=== PATIENT | female | born 1940 | race Caucasian/White ===

== ENCOUNTER 2019-11-13 19:02 | Inpatient (IN) | payer OTHER ==
--- OUTSIDE RECORDS SUMMARY | 2019-11-13 19:05 | XMS REPORT ---
:1940 [facility] [address] [place] [address] Care Team Providers Name Role Phone ROSALIE LIN ARCHER Unavailable Unavailable Problems This patient has no known problems. Allergies, Adverse Reactions, Alerts This patient has no known allergies or adverse reactions. Medications This patient has no known medications. Results Test Description Test Time Test Comments Text Results Atomic Results Result Comments BLOOD CULTURE 2017-05-27 00:00:00 Test Item Value Reference Range Comments CULTURE (BEAKER) (test rcjr=3357) No growth in 5 days BLOOD [id number] 00:00:00 Test Item Value Reference Range Comments CULTURE (BEAKER) (test oalf=7097) No growth in 5 days BASIC METABOLIC [id number] 06:46:00 Test Item Value Reference Range Comments SODIUM (BEAKER) (test 143 meq/L 136-145 xems=850) POTASSIUM (BEAKER) (test 4.2 meq/L 3.5-5.1 wmdb=209) CHLORIDE (BEAKER) (test 107 meq/L 98-107 qbkt=734) CO2 (BEAKER) (test 28 meq/L 22-29 wmve=248) BLOOD UREA NITROGEN 20 mg/dL 7-21 (BEAKER) (test chwu=862) CREATININE (BEAKER) (test 0.81 mg/dL 0.57-1.25 twlh=888) GLUCOSE RANDOM (BEAKER) 98 mg/dL 70-105 (test kjzk=640) CALCIUM (BEAKER) (test 9.0 mg/dL 8.4-10.2 cbnp=401) EGFR (BEAKER) (test 69 mL/min/1.73 sq m ESTIMATED GFR IS NOT lozm=7331) ACCURATE CREATININE CLEARANCE IN PREDICTING GLOMERULAR FILTRATION RATE. ESTIMATED GFR IS NOT APPLICABLE FOR DIALYSIS PATIENTS. CBC W/PLT COUNT & AUTO [id number] 06:45:00 Test Item Value Reference Range Comments WHITE BLOOD CELL COUNT (BEAKER) (test szrc=897) 9.2 K/ L 3.5-10.5 RED BLOOD CELL COUNT (BEAKER) (test zngs=250) 2.82 M/ L 3.93-5.22 HEMOGLOBIN (BEAKER) (test eolo=984) 8.4 GM/DL 11.2-15.7 HEMATOCRIT (BEAKER) (test gamp=895) 27.8 % 34.1-44.9 MEAN CORPUSCULAR VOLUME (BEAKER) (test amjf=669) 98.6 fL 79.4-94.8 MEAN CORPUSCULAR HEMOGLOBIN (BEAKER) (test 29.8 pg 25.6-32.2 kjxd=264) MEAN CORPUSCULAR HEMOGLOBIN CONC (BEAKER) (test 30.2 GM/DL 32.2-35.5 bftj=619) RED CELL DISTRIBUTION WIDTH (BEAKER) (test 17.5 % 11.7-14.4 ehtv=545) PLATELET COUNT (BEAKER) (test khdw=124) 490 K/CU MM 150-450 MEAN PLATELET VOLUME (BEAKER) (test taga=281) 9.0 fL 9.4-12.3 NUCLEATED RED BLOOD CELLS (BEAKER) (test 0 /100 WBC 0-0 kmhn=011) NEUTROPHILS RELATIVE PERCENT (BEAKER) (test 46 % beeb=106) LYMPHOCYTES RELATIVE PERCENT (BEAKER) (test 40 % mbne=247) MONOCYTES RELATIVE PERCENT (BEAKER) (test 8 % hiue=947) EOSINOPHILS RELATIVE PERCENT (BEAKER) (test 4 % ywvn=090) BASOPHILS RELATIVE PERCENT (BEAKER) (test 1 % idfy=698) NEUTROPHILS ABSOLUTE COUNT (BEAKER) (test 4.26 K/ L 1.56-6.13 txuz=988) LYMPHOCYTES ABSOLUTE COUNT (BEAKER) (test 3.71 K/ L 1.18-3.74 lqfi=087) MONOCYTES ABSOLUTE COUNT (BEAKER) (test 0.77 K/ L 0.24-0.36 sjvm=501) EOSINOPHILS ABSOLUTE COUNT (BEAKER) (test 0.35 K/ L 0.04-0.36 zrrj=497) BASOPHILS ABSOLUTE COUNT (BEAKER) (test 0.07 K/ L 0.01-0.08 ewij=296) IMMATURE GRANULOCYTES-RELATIVE PERCENT (BEAKER) 1 % 0-1 (test siex=8727) BASIC METABOLIC [id number] 04:54:00 Test Item Value Reference Range Comments SODIUM (BEAKER) (test 140 meq/L 136-145 duqq=488) POTASSIUM (BEAKER) (test 4.4 meq/L 3.5-5.1 xfax=223) CHLORIDE (BEAKER) (test 107 meq/L 98-107 tkdf=429) CO2 (BEAKER) (test 23 meq/L 22-29 djio=749) BLOOD UREA NITROGEN 21 mg/dL 7-21 (BEAKER) (test xgzz=016) CREATININE (BEAKER) (test 0.80 mg/dL 0.57-1.25 vjcq=069) GLUCOSE RANDOM (BEAKER) 114 mg/dL 70-105 (test zlpi=759) CALCIUM (BEAKER) (test 8.7 mg/dL 8.4-10.2 scom=060) EGFR (BEAKER) (test 70 mL/min/1.73 sq m ESTIMATED GFR IS NOT vvtg=4143) ACCURATE CREATININE CLEARANCE IN PREDICTING GLOMERULAR FILTRATION RATE. ESTIMATED GFR IS NOT APPLICABLE FOR DIALYSIS PATIENTS. CBC W/PLT COUNT & AUTO [id number] 04:36:00 Test Item Value Reference Range Comments WHITE BLOOD CELL COUNT (BEAKER) (test nggs=025) 9.9 K/ L 3.5-10.5 RED BLOOD CELL COUNT (BEAKER) (test ooql=609) 2.80 M/ L 3.93-5.22 HEMOGLOBIN (BEAKER) (test igcu=944) 8.4 GM/DL 11.2-15.7 HEMATOCRIT (BEAKER) (test hfpo=641) 26.6 % 34.1-44.9 MEAN CORPUSCULAR VOLUME (BEAKER) (test uedf=555) 95.0 fL 79.4-94.8 MEAN CORPUSCULAR HEMOGLOBIN (BEAKER) (test 30.0 pg 25.6-32.2 mxgt=742) MEAN CORPUSCULAR HEMOGLOBIN CONC (BEAKER) (test 31.6 GM/DL 32.2-35.5 kgcn=608) RED CELL DISTRIBUTION WIDTH (BEAKER) (test 17.6 % 11.7-14.4 cipa=480) PLATELET COUNT (BEAKER) (test vtal=788) 460 K/CU MM 150-450 MEAN PLATELET VOLUME (BEAKER) (test ueih=690) 8.6 fL 9.4-12.3 NUCLEATED RED BLOOD CELLS (BEAKER) (test 0 /100 WBC 0-0 ryis=194) NEUTROPHILS RELATIVE PERCENT (BEAKER) (test 57 % jsqy=726) LYMPHOCYTES RELATIVE PERCENT (BEAKER) (test 33 % dthc=459) MONOCYTES RELATIVE PERCENT (BEAKER) (test 7 % vurg=167) EOSINOPHILS RELATIVE PERCENT (BEAKER) (test 2 % mocx=097) BASOPHILS RELATIVE PERCENT (BEAKER) (test 1 % hkbz=269) NEUTROPHILS ABSOLUTE COUNT (BEAKER) (test 5.67 K/ L 1.56-6.13 ccha=825) LYMPHOCYTES ABSOLUTE COUNT (BEAKER) (test 3.24 K/ L 1.18-3.74 ygow=335) MONOCYTES ABSOLUTE COUNT (BEAKER) (test 0.67 K/ L 0.24-0.36 befo=797) EOSINOPHILS ABSOLUTE COUNT (BEAKER) (test 0.21 K/ L 0.04-0.36 azns=517) BASOPHILS ABSOLUTE COUNT (BEAKER) (test 0.05 K/ L 0.01-0.08 qhzz=909) IMMATURE GRANULOCYTES-RELATIVE PERCENT (BEAKER) 1 % 0-1 (test wuce=4246) BASIC METABOLIC [id number] 05:29:00 Test Item Value Reference Range Comments SODIUM (BEAKER) (test 141 meq/L 136-145 cava=923) POTASSIUM (BEAKER) (test 4.2 meq/L 3.5-5.1 npgx=779) CHLORIDE (BEAKER) (test 109 meq/L 98-107 vtnj=372) CO2 (BEAKER) (test 22 meq/L 22-29 zlxy=301) BLOOD UREA NITROGEN 22 mg/dL 7-21 (BEAKER) (test snby=891) CREATININE (BEAKER) (test 0.82 mg/dL 0.57-1.25 gowg=330) GLUCOSE RANDOM (BEAKER) 105 mg/dL 70-105 (test seoh=562) CALCIUM (BEAKER) (test 8.5 mg/dL 8.4-10.2 oihe=322) EGFR (BEAKER) (test 68 mL/min/1.73 sq m ESTIMATED GFR IS NOT zycw=0380) ACCURATE CREATININE CLEARANCE IN PREDICTING GLOMERULAR FILTRATION RATE. ESTIMATED GFR IS NOT APPLICABLE FOR DIALYSIS PATIENTS. CBC W/PLT COUNT & AUTO [id number] 05:28:00 Test Item Value Reference Range Comments WHITE BLOOD CELL COUNT (BEAKER) (test wvzb=630) 12.2 K/ L 3.5-10.5 RED BLOOD CELL COUNT (BEAKER) (test vfsk=838) 2.67 M/ L 3.93-5.22 HEMOGLOBIN (BEAKER) (test liia=817) 8.1 GM/DL 11.2-15.7 HEMATOCRIT (BEAKER) (test xjbu=299) 25.4 % 34.1-44.9 MEAN CORPUSCULAR VOLUME (BEAKER) (test igbb=455) 95.1 fL 79.4-94.8 MEAN CORPUSCULAR HEMOGLOBIN (BEAKER) (test 30.3 pg 25.6-32.2 fzcx=058) MEAN CORPUSCULAR HEMOGLOBIN CONC (BEAKER) (test 31.9 GM/DL 32.2-35.5 czff=796) RED CELL DISTRIBUTION WIDTH (BEAKER) (test 18.4 % 11.7-14.4 nrwi=293) PLATELET COUNT (BEAKER) (test ngsy=633) 475 K/CU MM 150-450 MEAN PLATELET VOLUME (BEAKER) (test hgbb=811) 8.6 fL 9.4-12.3 NUCLEATED RED BLOOD CELLS (BEAKER) (test 0 /100 WBC 0-0 abgg=149) NEUTROPHILS RELATIVE PERCENT (BEAKER) (test 63 % wgje=609) LYMPHOCYTES RELATIVE PERCENT (BEAKER) (test 27 % gcgo=434) MONOCYTES RELATIVE PERCENT (BEAKER) (test 6 % oahy=737) EOSINOPHILS RELATIVE PERCENT (BEAKER) (test 2 % grbv=439) BASOPHILS RELATIVE PERCENT (BEAKER) (test 1 % jmxx=961) NEUTROPHILS ABSOLUTE COUNT (BEAKER) (test 7.67 K/ L 1.56-6.13 kiek=684) LYMPHOCYTES ABSOLUTE COUNT (BEAKER) (test 3.29 K/ L 1.18-3.74 nhfw=147) MONOCYTES ABSOLUTE COUNT (BEAKER) (test 0.75 K/ L 0.24-0.36 qwdl=531) EOSINOPHILS ABSOLUTE COUNT (BEAKER) (test 0.23 K/ L 0.04-0.36 wvkr=182) BASOPHILS ABSOLUTE COUNT (BEAKER) (test 0.06 K/ L 0.01-0.08 ypgg=302) IMMATURE GRANULOCYTES-RELATIVE PERCENT (BEAKER) 1 % 0-1 (test rxlw=4611) VITAMIN B12 AND [id number] 07:22:00 Test Item Value Reference Range Comments VITAMIN B12 (BEAKER) (test irkp=370) 448 pg/mL 213-816 FOLATE (BEAKER) (test mxev=344) 16.4 ng/mL >=7.0 Effective 08/19/2014: Folate Reference Range ChangeNew: >=7.0 Previous: & gt;=5.4CREATINE KINASE (CK), TOTAL AND [id number] 06:58:00 Test Item Value Reference Range Comments CREATINE KINASE TOTAL (BEAKER) (test bskc=676) 380 U/L 29-200 CREATINE KINASE-MB (BEAKER) (test gxak=002) 3.0 ng/mL 0.0-6.6 CREATINE KINASE-MB INDEX (BEAKER) (test riia=877) 0.8 % Effective 08/19/2014: CK-MB Reference Range ChangeNew: 0.0-6.6 Previous: 0.0- 4.9CK-MB Reference Range:<6.7 Normal6.7-10.0 Borderline>10.0 AbnormalBASIC METABOLIC [id number] 06:41:00 Test Item Value Reference Range Comments SODIUM (BEAKER) (test 140 meq/L 136-145 cqlo=287) POTASSIUM (BEAKER) (test 4.7 meq/L 3.5-5.1 Specimen slightly ihpv=995) hemolyzed CHLORIDE (BEAKER) (test 107 meq/L 98-107 uhty=026) CO2 (BEAKER) (test 24 meq/L 22-29 nzkm=605) BLOOD UREA NITROGEN 25 mg/dL 7-21 (BEAKER) (test eqzd=122) CREATININE (BEAKER) (test 0.86 mg/dL 0.57-1.25 Specimen slightly odkp=119) hemolyzed GLUCOSE RANDOM (BEAKER) 102 mg/dL 70-105 (test msnm=004) CALCIUM (BEAKER) (test 8.3 mg/dL 8.4-10.2 ncmi=685) EGFR (BEAKER) (test 64 mL/min/1.73 sq m ESTIMATED GFR IS NOT noks=4043) ACCURATE CREATININE CLEARANCE IN PREDICTING GLOMERULAR FILTRATION RATE. ESTIMATED GFR IS NOT APPLICABLE FOR DIALYSIS PATIENTS. CBC W/PLT COUNT & AUTO [id number] 06:27:00 Test Item Value Reference Range Comments WHITE BLOOD CELL COUNT (BEAKER) (test pnxl=298) 11.4 K/ L 3.5-10.5 RED BLOOD CELL COUNT (BEAKER) (test afdh=397) 2.43 M/ L 3.93-5.22 HEMOGLOBIN (BEAKER) (test jsnf=168) 7.4 GM/DL 11.2-15.7 HEMATOCRIT (BEAKER) (test nejr=671) 23.6 % 34.1-44.9 MEAN CORPUSCULAR VOLUME (BEAKER) (test mhzn=321) 97.1 fL 79.4-94.8 MEAN CORPUSCULAR HEMOGLOBIN (BEAKER) (test 30.5 pg 25.6-32.2 xxxq=758) MEAN CORPUSCULAR HEMOGLOBIN CONC (BEAKER) (test 31.4 GM/DL 32.2-35.5 neux=851) RED CELL DISTRIBUTION WIDTH (BEAKER) (test 19.0 % 11.7-14.4 fzew=027) PLATELET COUNT (BEAKER) (test fcfq=348) 491 K/CU MM 150-450 MEAN PLATELET VOLUME (BEAKER) (test tlqd=895) 9.0 fL 9.4-12.3 NUCLEATED RED BLOOD CELLS (BEAKER) (test 0 /100 WBC 0-0 urqp=418) NEUTROPHILS RELATIVE PERCENT (BEAKER) (test 62 % kkzs=883) LYMPHOCYTES RELATIVE PERCENT (BEAKER) (test 28 % vqdw=416) MONOCYTES RELATIVE PERCENT (BEAKER) (test 6 % zhio=874) EOSINOPHILS RELATIVE PERCENT (BEAKER) (test 2 % bmrz=210) BASOPHILS RELATIVE PERCENT (BEAKER) (test 0 % tvgw=772) NEUTROPHILS ABSOLUTE COUNT (BEAKER) (test 7.06 K/ L 1.56-6.13 atxz=889) LYMPHOCYTES ABSOLUTE COUNT (BEAKER) (test 3.19 K/ L 1.18-3.74 bcjp=985) MONOCYTES ABSOLUTE COUNT (BEAKER) (test 0.71 K/ L 0.24-0.36 zqgl=455) EOSINOPHILS ABSOLUTE COUNT (BEAKER) (test 0.20 K/ L 0.04-0.36 ppwe=525) BASOPHILS ABSOLUTE COUNT (BEAKER) (test 0.05 K/ L 0.01-0.08 wyng=048) IMMATURE GRANULOCYTES-RELATIVE PERCENT (BEAKER) 2 % 0-1 (test ffdk=6125) URINALYSIS W/ [id number] 17:10:00 Test Item Value Reference Range Comments COLOR (BEAKER) (test bmfp=073) Light Yellow CLARITY (BEAKER) (test wqdo=657) Clear SPECIFIC GRAVITY UA (BEAKER) (test jgbb=501) 1.005 1.001-1.035 PH UA (BEAKER) (test tyib=747) 5.5 5.0-8.0 PROTEIN UA (BEAKER) (test vyxp=656) Negative Negative GLUCOSE UA (BEAKER) (test ubsa=378) Negative Negative KETONES UA (BEAKER) (test nyrj=336) Negative Negative BILIRUBIN UA (BEAKER) (test uwwv=391) Negative Negative BLOOD UA (BEAKER) (test cbub=258) Negative Negative NITRITE UA (BEAKER) (test dbwh=107) Negative Negative LEUKOCYTE ESTERASE UA (BEAKER) (test lkon=795) Negative Negative UROBILINOGEN UA (BEAKER) (test ojyl=978) 0.2 mg/dL 0.2-1.0 RBC UA (BEAKER) (test bnsg=526) 0 /HPF WBC UA (BEAKER) (test cpwx=760) 2 /HPF SQUAMOUS EPITHELIAL (BEAKER) (test mbtd=522) < /HPF SOURCE(BEAKER) (test ihzg=4148) Urine, Voided CBC W/PLT COUNT & AUTO [id number] 07:33:00 Test Item Value Reference Range Comments WHITE BLOOD CELL COUNT (BEAKER) (test fzpg=127) 14.2 K/ L 3.5-10.5 RED BLOOD CELL COUNT (BEAKER) (test huhi=853) 2.52 M/ L 3.93-5.22 HEMOGLOBIN (BEAKER) (test xenu=311) 7.7 GM/DL 11.2-15.7 HEMATOCRIT (BEAKER) (test rmzx=086) 23.8 % 34.1-44.9 MEAN CORPUSCULAR VOLUME (BEAKER) (test mjqs=765) 94.4 fL 79.4-94.8 MEAN CORPUSCULAR HEMOGLOBIN (BEAKER) (test 30.6 pg 25.6-32.2 mrak=154) MEAN CORPUSCULAR HEMOGLOBIN CONC (BEAKER) (test 32.4 GM/DL 32.2-35.5 wljc=670) RED CELL DISTRIBUTION WIDTH (BEAKER) (test 19.9 % 11.7-14.4 pxvd=212) PLATELET COUNT (BEAKER) (test ddla=346) 506 K/CU MM 150-450 MEAN PLATELET VOLUME (BEAKER) (test bnkl=094) 8.7 fL 9.4-12.3 NUCLEATED RED BLOOD CELLS (BEAKER) (test 0 /100 WBC 0-0 thkt=490) NEUTROPHILS RELATIVE PERCENT (BEAKER) (test 62 % dfkh=372) LYMPHOCYTES RELATIVE PERCENT (BEAKER) (test 28 % grkg=538) MONOCYTES RELATIVE PERCENT (BEAKER) (test 6 % dgyy=700) EOSINOPHILS RELATIVE PERCENT (BEAKER) (test 1 % egys=408) BASOPHILS RELATIVE PERCENT (BEAKER) (test 1 % pvbv=640) NEUTROPHILS ABSOLUTE COUNT (BEAKER) (test 8.89 K/ L 1.56-6.13 bddk=911) LYMPHOCYTES ABSOLUTE COUNT (BEAKER) (test 3.99 K/ L 1.18-3.74 pvxo=836) MONOCYTES ABSOLUTE COUNT (BEAKER) (test 0.85 K/ L 0.24-0.36 ldij=428) EOSINOPHILS ABSOLUTE COUNT (BEAKER) (test 0.18 K/ L 0.04-0.36 gfmy=785) BASOPHILS ABSOLUTE COUNT (BEAKER) (test 0.07 K/ L 0.01-0.08 fmxj=527) IMMATURE GRANULOCYTES-RELATIVE PERCENT (BEAKER) 2 % 0-1 (test mvci=4521) LIPID [id number] 05:57:00 Test Item Value Reference Range Comments TRIGLYCERIDES (BEAKER) (test eytz=459) 181 mg/dL CHOLESTEROL (BEAKER) (test jfdy=812) 137 mg/dL HDL CHOLESTEROL (BEAKER) (test msqx=513) 37 mg/dL LDL CHOLESTEROL CALCULATED (BEAKER) (test 64 mg/dL pgoj=927) Triglyceride Reference Range: Low Risk <150 Borderline 150- 199 High Risk 200-499 Very High Risk >=500Cholesterol Reference Range: Low Risk <200 Borderline 200-239 High Risk > 240HDL Cholesterol Reference Range: Low Risk >=60 High Risk <40LDL Cholesterol Reference Range: Optimal <100 Near Optimal 100-129 Borderline 130-159 High 160-189 Very High >=190 FastingBASIC METABOLIC [id number] 05:57:00 Test Item Value Reference Range Comments SODIUM (BEAKER) (test 140 meq/L 136-145 vdux=618) POTASSIUM (BEAKER) (test 4.3 meq/L 3.5-5.1 zbsr=047) CHLORIDE (BEAKER) (test 109 meq/L 98-107 byoq=277) CO2 (BEAKER) (test 21 meq/L 22-29 fqog=622) BLOOD UREA NITROGEN 22 mg/dL 7-21 (BEAKER) (test xslu=847) CREATININE (BEAKER) (test 0.86 mg/dL 0.57-1.25 ysjq=016) GLUCOSE RANDOM (BEAKER) 109 mg/dL 70-105 (test neis=494) CALCIUM (BEAKER) (test 8.0 mg/dL 8.4-10.2 bgng=313) EGFR (BEAKER) (test 64 mL/min/1.73 sq m ESTIMATED GFR IS NOT nfit=8214) ACCURATE CREATININE CLEARANCE IN PREDICTING GLOMERULAR FILTRATION RATE. ESTIMATED GFR IS NOT APPLICABLE FOR DIALYSIS PATIENTS. FastingTROPONIN [id number] 05:52:00 Test Item Value Reference Range Comments TROPONIN I (BEAKER) (test ejsf=253) 0.04 ng/mL 0.00-0.03 Effective 08/19/2014: Reference Range ChangeNew: 0.00-0.03 Previous 0.00- 0.15Troponin I (TnI) levels must be interpreted in the context of the presenting symptoms and the clinical findings. Elevated TnI levels indicate myocardial damage, but are not specific for ischemic heart disease. Elevated TnI levels are seen in patients with other cardiac conditions (including myocarditis and congestive heartfailure), and slight TnI elevations occur in patients with other conditions, including sepsis, renalfailure, acidosis, acute neurological disease, and persistent tachyarrhythmia.FastingTROPONIN [id number] 00:23:00 Test Item Value Reference Range Comments TROPONIN I (BEAKER) (test oquv=637) 0.05 ng/mL 0.00-0.03 Effective 08/19/2014: Reference Range ChangeNew: 0.00-0.03 Previous 0.00- 0.15Troponin I (TnI) levels must be interpreted in the context of the presenting symptoms and the clinical findings. Elevated TnI levels indicate myocardial damage, but are not specific for ischemic heart disease. Elevated TnI levels are seen in patients with other cardiac conditions (including myocarditis and congestive heartfailure), and slight TnI elevations occur in patients with other conditions, including sepsis, renalfailure, acidosis, acute neurological disease, and persistent tachyarrhythmia.CBC W/PLT COUNT & AUTO [id number] 22:52:00 Test Item Value Reference Range Comments WHITE BLOOD CELL COUNT (BEAKER) (test zors=286) 16.7 K/ L 3.5-10.5 RED BLOOD CELL COUNT (BEAKER) (test jyck=786) 2.38 M/ L 3.93-5.22 HEMOGLOBIN (BEAKER) (test hces=867) 7.4 GM/DL 11.2-15.7 HEMATOCRIT (BEAKER) (test xfkw=454) 22.3 % 34.1-44.9 MEAN CORPUSCULAR VOLUME (BEAKER) (test iowo=639) 93.7 fL 79.4-94.8 MEAN CORPUSCULAR HEMOGLOBIN (BEAKER) (test 31.1 pg 25.6-32.2 zugy=292) MEAN CORPUSCULAR HEMOGLOBIN CONC (BEAKER) (test 33.2 GM/DL 32.2-35.5 jgxm=983) RED CELL DISTRIBUTION WIDTH (BEAKER) (test 20.1 % 11.7-14.4 ikdz=067) PLATELET COUNT (BEAKER) (test vmva=110) 497 K/CU MM 150-450 MEAN PLATELET VOLUME (BEAKER) (test kobq=602) 8.6 fL 9.4-12.3 NUCLEATED RED BLOOD CELLS (BEAKER) (test 1 /100 WBC 0-0 ydqb=038) IMMATURE GRANULOCYTES-RELATIVE PERCENT (BEAKER) 2 % 0-1 (test ezxy=8644) (MANUAL DIFFERENTIAL)[id number] 22:52:00 Test Item Value Reference Range Comments NEUTROPHILS - REL (DIFF) (BEAKER) (test 70 % qxbs=5886) LYMPHOCYTES - REL (DIFF) (BEAKER) (test 26 % jome=9146) MONOCYTES - REL (DIFF) (BEAKER) (test qlbk=6461) 2 % METAMYELOCYTES-REL (DIFF) (BEAKER) (test 1 % 0-0 erbp=728) BANDS - REL (DIFF) (BEAKER) (test cypr=0620) 1 % 0-10 NEUTROPHILS - ABS (DIFF) (BEAKER) (test 11.69 K/ L 1.80-8.00 aqcj=3438) LYMPHOCYTES - ABS (DIFF) (BEAKER) (test 4.34 K/ L 1.48-4.50 zssh=5409) MONOCYTES - ABS (DIFF) (BEAKER) (test xtam=1710) 0.33 K/ L 0.00-1.30 METAMYELOCTYES - ABS (DIFF) (BEAKER) (test 0.17 K/ L 0.00-0.00 kqhk=685) BANDS-ABS (DIFF) (BEAKER) (test foty=0921) 0.2 K/ L 0.0-0.8 TOTAL COUNTED (BEAKER) (test zoxr=0101) 100 BANDS + SEGMENTED NEUTROPHILS (BEAKER) (test 11.86 udcn=6078) MANUAL NRBC PER 100 CELLS (BEAKER) (test 2 /100 WBC 0-0 ktxr=2303) WBC MORPHOLOGY (BEAKER) (test qzns=600) Normal PLT MORPHOLOGY (BEAKER) (test fkir=075) Normal ANISOCYTOSIS (BEAKER) (test kgbs=313) 1+ few MACROCYTES (BEAKER) (test ujse=812) 1+ few POLYCHROMATOPHILLIC RBCS(BEAKER) (test jdhp=672) 2+ moderate [id number] 20:22:00 Test Item Value Reference Range Comments HAPTOGLOBIN (BEAKER) (test txkp=777) 376 mg/dL - Effective 08/19/2014: Reference Range ChangeNew: Previous: 36- [id number] 19:39:00 Test Item Value Reference Range Comments PARTIAL THROMBOPLASTIN TIME (BEAKER) (test 26.1 seconds 22.5-36.0 ewbh=058) COMPREHENSIVE METABOLIC [id number] 19:39:00 Test Item Value Reference Range Comments TOTAL PROTEIN (BEAKER) 6.1 gm/dL 6.0-8.3 (test ztzc=092) ALBUMIN (BEAKER) (test 3.0 g/dL 3.5-5.0 ehgp=3459) ALKALINE PHOSPHATASE 101 U/L 40-150 (BEAKER) (test zslb=053) BILIRUBIN TOTAL (BEAKER) < mg/dL 0.2-1.2 (test gsyf=384) SODIUM (BEAKER) (test 140 meq/L 136-145 ilgo=118) POTASSIUM (BEAKER) (test 4.1 meq/L 3.5-5.1 icvn=179) CHLORIDE (BEAKER) (test 107 meq/L 98-107 nfmz=767) CO2 (BEAKER) (test 23 meq/L 22-29 qicc=774) BLOOD UREA NITROGEN 25 mg/dL 7-21 (BEAKER) (test vvde=422) CREATININE (BEAKER) (test 0.99 mg/dL 0.57-1.25 afbn=267) GLUCOSE RANDOM (BEAKER) 86 mg/dL 70-105 (test hgoe=259) CALCIUM (BEAKER) (test 8.2 mg/dL 8.4-10.2 xgro=691) AST (SGOT) (BEAKER) (test 55 U/L 5-34 bdgi=449) ALT (SGPT) (BEAKER) (test 44 U/L 6-55 jaim=599) EGFR (BEAKER) (test 55 mL/min/1.73 sq m ESTIMATED GFR IS NOT smaq=0981) ACCURATE CREATININE CLEARANCE IN PREDICTING GLOMERULAR FILTRATION RATE. ESTIMATED GFR IS NOT APPLICABLE FOR DIALYSIS PATIENTS. PROTHROMBIN [id number] 19:38:00 Test Item Value Reference Range Comments PROTIME (BEAKER) (test xjun=090) 14.2 seconds 11.7-14.7 INR (BEAKER) (test tqeo=994) 1.1 <=5.9 RECOMMENDED COUMADIN/WARFARIN INR THERAPY RANGESSTANDARD DOSE: 2.0 - 3.0 Includes: PROPHYLAXIS forvenous thrombosis, systemic embolization; TREATMENT for venous thrombosis and/or pulmonary embolus.HIGH RISK: Target INR is 2.5-3.5 for patients with mechanical heart valves.CREATINE KINASE (CK), TOTAL AND [id number] 18:25:00 Test Item Value Reference Range Comments CREATINE KINASE TOTAL (BEAKER) (test qogg=298) 1250 U/L 29-200 CREATINE KINASE-MB (BEAKER) (test wtci=494) 17.1 ng/mL 0.0-6.6 CREATINE KINASE-MB INDEX (BEAKER) (test culs=493) 1.4 % Effective 08/19/2014: CK-MB Reference Range ChangeNew: 0.0-6.6 Previous: 0.0- 4.9CK-MB Reference Range:<6.7 Normal6.7-10.0 Borderline>10.0 AbnormalTROPONIN [id number] 18:25:00 Test Item Value Reference Range Comments TROPONIN I (BEAKER) (test irrh=518) 0.05 ng/mL 0.00-0.03 Effective 08/19/2014: Reference Range ChangeNew: 0.00-0.03 Previous 0.00- 0.15Troponin I (TnI) levels must be interpreted in the context of the presenting symptoms and the clinical findings. Elevated TnI levels indicate myocardial damage, but are not specific for ischemic heart disease. Elevated TnI levels are seen in patients with other cardiac conditions (including myocarditis and congestive heartfailure), and slight TnI elevations occur in patients with other conditions, including sepsis, renalfailure, acidosis, acute neurological disease, and persistent tachyarrhythmia.LACTATE DEHYDROGENASE (LDH) 2017-05-20 18:19:00 Test Item Value Reference Range Comments LACTATE DEHYDROGENASE (BEAKER) (test nteb=330) 454 U/L 125-220 HEMOGLOBIN AND [id number] 18:04:00 Test Item Value Reference Range Comments HEMOGLOBIN (BEAKER) (test wdlh=181) 8.0 GM/DL 11.2-15.7 HEMATOCRIT (BEAKER) (test vpce=851) 24.4 % 34.1-44.9 SEDIMENTATION [id number] 13:43:00 Test Item Value Reference Range Comments SEDIMENTATION RATE, ERYTHROCYTE (BEAKER) (test 63 mm/HR 0-40 dotj=337) [id number] 12:08:00 Test Item Value Reference Range Comments RPR SCREEN (BEAKER) (test dpjq=544) Nonreactive Nonreactive POCT-GLUCOSE [id number] 11:27:00 Test Item Value Reference Range Comments POC-GLUCOSE METER (BEAKER) 178 mg/dL 70-110 TESTED AT [facility] [address] (test msrs=5945) [facility] [address] HEMOGLOBIN [id number] 09:58:00 Test Item Value Reference Range Comments HEMOGLOBIN A1C (BEAKER) (test wvox=880) 5.8 % 4.3-6.1 CBC W/PLT COUNT & AUTO [id number] 09:27:00 Test Item Value Reference Range Comments WHITE BLOOD CELL COUNT (BEAKER) (test pryr=914) 18.9 K/ L 3.5-10.5 RED BLOOD CELL COUNT (BEAKER) (test qwqf=141) 2.40 M/ L 3.93-5.22 HEMOGLOBIN (BEAKER) (test zyrq=959) 7.4 GM/DL 11.2-15.7 HEMATOCRIT (BEAKER) (test kexk=801) 22.9 % 34.1-44.9 MEAN CORPUSCULAR VOLUME (BEAKER) (test qdne=438) 95.4 fL 79.4-94.8 MEAN CORPUSCULAR HEMOGLOBIN (BEAKER) (test 30.8 pg 25.6-32.2 iftq=476) MEAN CORPUSCULAR HEMOGLOBIN CONC (BEAKER) (test 32.3 GM/DL 32.2-35.5 thks=247) RED CELL DISTRIBUTION WIDTH (BEAKER) (test 18.8 % 11.7-14.4 oalp=998) PLATELET COUNT (BEAKER) (test tzsi=128) 497 K/CU MM 150-450 MEAN PLATELET VOLUME (BEAKER) (test khtc=160) 8.8 fL 9.4-12.3 NUCLEATED RED BLOOD CELLS (BEAKER) (test 1 /100 WBC 0-0 aovr=493) NEUTROPHILS RELATIVE PERCENT (BEAKER) (test 65 % ushy=775) LYMPHOCYTES RELATIVE PERCENT (BEAKER) (test 26 % zdfh=926) MONOCYTES RELATIVE PERCENT (BEAKER) (test 6 % zwvp=728) EOSINOPHILS RELATIVE PERCENT (BEAKER) (test 0 % pyrs=519) BASOPHILS RELATIVE PERCENT (BEAKER) (test 0 % vgzb=148) NEUTROPHILS ABSOLUTE COUNT (BEAKER) (test 12.40 K/ L 1.56-6.13 tptu=623) LYMPHOCYTES ABSOLUTE COUNT (BEAKER) (test 4.88 K/ L 1.18-3.74 rqqy=616) MONOCYTES ABSOLUTE COUNT (BEAKER) (test 1.13 K/ L 0.24-0.36 luye=519) EOSINOPHILS ABSOLUTE COUNT (BEAKER) (test 0.04 K/ L 0.04-0.36 gcar=680) BASOPHILS ABSOLUTE COUNT (BEAKER) (test 0.05 K/ L 0.01-0.08 ixfz=094) IMMATURE GRANULOCYTES-RELATIVE PERCENT (BEAKER) 2 % 0-1 (test qyyq=4975) (MANUAL DIFFERENTIAL)2017-05-20 09:27:00 Test Item Value Reference Range Comments TOTAL COUNTED (BEAKER) (test syhj=1757) WBC MORPHOLOGY (BEAKER) (test jnws=181) Normal PLT MORPHOLOGY (BEAKER) (test pezu=143) Normal ANISOCYTOSIS (BEAKER) (test isjn=668) 2+ moderate POLYCHROMATOPHILLIC RBCS(BEAKER) (test njrf=989) 1+ few POCT-GLUCOSE [id number] 07:27:00 Test Item Value Reference Range Comments POC-GLUCOSE METER (BEAKER) 120 mg/dL 70-110 TESTED AT [facility] [address] [facility] (test mxpw=4028) [facility] [address] [id number] 07:02:00 Test Item Value Reference Range Comments FERRITIN (BEAKER) (test jshj=618) 370 ng/mL 5-275 Effective 08/19/2014: Reference Range ChangeNew: Male 5-275 Previous: Male 22-322 Female 5-275 Female 10-291TSH/FREE T4 IF [id number] 07:02:00 Test Item Value Reference Range Comments THYROID STIMULATING HORMONE (BEAKER) (test 1.71 uIU/mL 0.35-4.94 yepw=543) IRON, TIBC, % SAT. (WITHOUT FERRITIN)2017-05-20 07:00:00 Test Item Value Reference Range Comments IRON (BEAKER) (test odts=421) 100 ug/dL 40-160 TOTAL IRON BINDING CAPACITY (BEAKER) (test 265 ug/dL 250-450 ixve=325) IRON % SATURATION (2) (BEAKER) (test jxdo=6712) 38 % 20-55 CREATINE KINASE (CK), TOTAL AND [id number] 06:42:00 Test Item Value Reference Range Comments CREATINE KINASE TOTAL (BEAKER) (test gqam=811) 1329 U/L 29-200 CREATINE KINASE-MB (BEAKER) (test zvug=995) 16.7 ng/mL 0.0-6.6 CREATINE KINASE-MB INDEX (BEAKER) (test iver=331) 1.3 % Effective 08/19/2014: CK-MB Reference Range ChangeNew: 0.0-6.6 Previous: 0.0- 4.9CK-MB Reference Range:<6.7 Normal6.7-10.0 Borderline>10.0 AbnormalTROPONIN [id number] 06:42:00 Test Item Value Reference Range Comments TROPONIN I (BEAKER) (test xzot=720) 0.06 ng/mL 0.00-0.03 Effective 08/19/2014: Reference Range ChangeNew: 0.00-0.03 Previous 0.00- 0.15Troponin I (TnI) levels must be interpreted in the context of the presenting symptoms and the clinical findings. Elevated TnI levels indicate myocardial damage, but are not specific for ischemic heart disease. Elevated TnI levels are seen in patients with other cardiac conditions (including myocarditis and congestive heartfailure), and slight TnI elevations occur in patients with other conditions, including sepsis, renalfailure, acidosis, acute neurological disease, and persistent tachyarrhythmia.[id number] 06:35: 00 Test Item Value Reference Range Comments PHOSPHORUS (BEAKER) (test txoy=973) 3.5 mg/dL 2.3-4.7 [id number] 06:35:00 Test Item Value Reference Range Comments MAGNESIUM (BEAKER) (test tmqk=724) 2.3 mg/dL 1.6-2.6 LIPID [id number] 06:35:00 Test Item Value Reference Range Comments TRIGLYCERIDES (BEAKER) (test yqqv=903) 145 mg/dL CHOLESTEROL (BEAKER) (test wown=973) 132 mg/dL HDL CHOLESTEROL (BEAKER) (test mjaq=894) 33 mg/dL LDL CHOLESTEROL CALCULATED (BEAKER) (test 70 mg/dL ndjm=320) Triglyceride Reference Range: Low Risk <150 Borderline 150- 199 High Risk 200-499 Very High Risk >=500Cholesterol Reference Range: Low Risk <200 Borderline 200-239 High Risk > 240HDL Cholesterol Reference Range: Low Risk >=60 High Risk <40LDL Cholesterol Reference Range: Optimal <100 Near Optimal 100-129 Borderline 130-159 High 160-189 Very High >=190HEPATIC FUNCTION [id number] 06:35:00 Test Item Value Reference Range Comments TOTAL PROTEIN (BEAKER) (test vwvy=336) 5.4 gm/dL 6.0-8.3 ALBUMIN (BEAKER) (test bkuk=6693) 2.7 g/dL 3.5-5.0 BILIRUBIN TOTAL (BEAKER) (test xpxt=950) 0.4 mg/dL 0.2-1.2 BILIRUBIN DIRECT (BEAKER) (test svwu=320) 0.2 mg/dL 0.1-0.5 ALKALINE PHOSPHATASE (BEAKER) (test yihj=554) 81 U/L 40-150 AST (SGOT) (BEAKER) (test pjnu=588) 56 U/L 5-34 ALT (SGPT) (BEAKER) (test urue=669) 41 U/L 6-55 BASIC METABOLIC [id number] 06:34:00 Test Item Value Reference Range Comments SODIUM (BEAKER) (test 140 meq/L 136-145 mgfs=713) POTASSIUM (BEAKER) (test 4.1 meq/L 3.5-5.1 yjpr=994) CHLORIDE (BEAKER) (test 107 meq/L 98-107 imnx=055) CO2 (BEAKER) (test 21 meq/L 22-29 vyft=170) BLOOD UREA NITROGEN 34 mg/dL 7-21 (BEAKER) (test gwna=713) CREATININE (BEAKER) (test 1.22 mg/dL 0.57-1.25 umyc=605) GLUCOSE RANDOM (BEAKER) 95 mg/dL 70-105 (test vysk=180) CALCIUM (BEAKER) (test 8.4 mg/dL 8.4-10.2 doav=171) EGFR (BEAKER) (test 43 mL/min/1.73 sq m ESTIMATED GFR IS NOT nkaa=1064) ACCURATE CREATININE CLEARANCE IN PREDICTING GLOMERULAR FILTRATION RATE. ESTIMATED GFR IS NOT APPLICABLE FOR DIALYSIS PATIENTS.
[2019-11-13 20:08] LABS: Absolute Lymphocytes (CBC) 2.3 K/uL (0.7-4.9); Basophils % 0.1 % (0-1.3); Hematocrit 37.1 % (36.0-45.0); Lymphocytes % 19.3 % (15.3-44.8); MPV 7.2 fL (7.6-11.3); RBC Red Blood Cell Count 4.05 M/uL (3.86-4.86)
[2019-11-13 20:09] LABS: Protime INR 1.13
[2019-11-13 20:26] LABS: Urine Blood 3+ (NEG); Urine Glucose NEGATIVE (NEG); Urine Protein 2+ (NEG)
--- NOTE | 2019-11-13 20:40 | RAD REPORT ---
EXAM DESCRIPTION: RAD - Chest Single View - 11/13/2019 8:35 pm CLINICAL HISTORY: AMS Chest pain. COMPARISON: Chest Single View dated 05/19/2017 FINDINGS: Portable technique limits examination quality. The lungs are grossly clear. The heart is normal in size. No displaced fractures.Mild dextroscoliosis of the upper thoracic spine. IMPRESSION: No acute intrathoracic process suspected.
--- NOTE | 2019-11-13 20:40 | RAD REPORT ---
EXAM DESCRIPTION: RAD - Pelvis - 11/13/2019 8:35 pm CLINICAL HISTORY: fall Pelvic pain COMPARISON: No comparisons FINDINGS: Minimally displaced fractures of the superior and inferior pubic ramus on the left is note d. Elsewhere, no fracture or dislocation evident.
--- NOTE | 2019-11-13 20:42 | RAD REPORT ---
EXAM DESCRIPTION: RAD - Knee Left 3 View - 11/13/2019 8:35 pm CLINICAL HISTORY: PAIN Fall, pain COMPARISON: No comparisons FINDINGS: Diffuse osteopenia is seen. Prominent osteoarthritis involves the medial compartment with sclerosis and osteophytosis. No joint effusion. No acute fracture or dislocation.
[2019-11-13 20:45] LABS: ALT/SGPT 21 U/L (12-78); AST/SGOT 26 U/L (15-37); Albumin 3.9 g/dL (3.4-5.0); Alkaline Phosphatase 138 U/L (45-117); BUN Blood Urea Nitrogen 29 mg/dL (7-18); Bicarbonate 25 mmol/L (21-32); Bilirubin Direct < 0.1 mg/dL (0-0.2); Bilirubin Total 0.3 mg/dL (0.2-1.0); Glucose Level 147 mg/dL (74-106); NT PRO-BNP 606 pg/mL (<450); Potassium 3.5 mmol/L (3.5-5.1); Protein, Total 7.9 g/dL (6.4-8.2); Sodium Level 145 mmol/L (136-145); Troponin (Emerg Dept Use Only) < 0.02 ng/mL (0.0-0.045)
--- NOTE | 2019-11-13 20:48 | RAD REPORT ---
EXAM DESCRIPTION: CT - Head Brain Wo Cont - 11/13/2019 8:38 pm CLINICAL HISTORY: MENTAL STATUS CHANGE Headache, drowsiness COMPARISON: Head C Spine Mpr Wo Con dated 05/19/2017 TECHNIQUE: All CT scans are performed using dose optimization technique as appropriate and may inclu de automated exposure control or mA/KV adjustment according to patient size. FINDINGS: No intracranial hemorrhage, hydrocephalus or extra-axial fluid collection.Small areas of g liosis is seen in the right frontal lobe likely related to previous trauma or infarct.Generalized bra in atrophy is noted mild to moderate chronic microvascular ischemic changes present. The paranasal sinuses and mastoids are clear. The calvarium is intact. IMPRESSION: No acute intracranial abnormality.
[2019-11-13] MEDS ORDERED: NA CHLORIDE 0.9% 500 ML ONE (20:50)
[2019-11-13 21:04] LABS: Urine Bacteria 20-50 /HPF (<20); Urine RBC 20-50 /HPF (NONE SEEN)
[2019-11-13 21:06] LABS: Urine Culture Reflex Order REFLEXED
[2019-11-13] MEDS ORDERED: CEFTRIAXONE/SWI 1gm 1 GM/10 ML SYR ONE (21:58)
[2019-11-13] MEDS ORDERED: NA CHLORIDE 0.9% 1,000 ML ONE (23:26)
--- NOTE | 2019-11-13 23:48 | ER ---
Nurse's Notes [facility] Name: Dominik Washington Age: 79 yrs Sex: Female : 1940 Arrival Date: 11/13/2019 Time: 19:04 Bed 13 Private MD: Diagnosis: Multiple fractures of pelvis with stable disruption of pelvic ring;Altered mental status, unspecified;Urinary tract infection, site not specified Presentation: 11/13 19:06 Presenting complaint: Patient states: thinks there are people in her house but her son iw and grandson don't believe her, has been calling the police trying to get the people out of her house. Transition of care: patient was not received from another setting of care. Onset of symptoms was November 13, 2019. 19:06 Method Of Arrival: Wheelchair iw 19:06 Acuity: HERNÁN 3 iw 19:31 Risk Assessment: Do you want to hurt yourself or someone else? Patient reports no iw desire to harm self or others. Initial Sepsis Screen: Does the patient meet any 2 criteria? No. Patient's initial sepsis screen is negative. Does the patient have a suspected source of infection? No. Patient's initial sepsis screen is negative. Care prior to arrival: None. 19:31 Risk Assessment: Do you want to hurt yourself or someone else? Patient reports no ls4 desire to harm self or others. Initial Sepsis Screen: Does the patient meet any 2 criteria? Altered Mental Status. HR > 90 bpm. Yes Does the patient have a suspected source of infection? No. Patient's initial sepsis screen is negative. Care prior to arrival: None. Triage Assessment: 20:21 General: Appears in no apparent distress. uncomfortable, Behavior is cooperative. Pain: ls4 Denies pain. Neuro: Level of Consciousness is awake, alert, obeys commands, Oriented to person, place, time, Documentation Clerk are equal bilaterally Moves all extremities. Gait is unsteady, Speech is normal, Facial symmetry appears normal, Pupils are PERRLA, Intact Reports SEEING STRANGERS IN HER HOUSE. SHE STATES THE POLICE REMOVED THEM AND ONE OF THEM MUST HAVE STAYED BEHIND AND LET THEM BACK IN THE BACK DOOR. . Cardiovascular: Reports None Denies chest pain, shortness of breath, Heart tones S1 S2. Respiratory: Airway is patent Respiratory effort is even, unlabored, Respiratory pattern is regular, Breath sounds are clear bilaterally. GI: Abdomen is non-distended, Bowel sounds present X 4 quads. Abd is soft and non tender X 4 quads. Reports normal bowel habits, Patient currently denies abdominal pain, constipation, nausea, vomiting. : Urine is clear, Parent/caregiver report the patient having incontinence. Derm: Skin is dry, Skin is pink, warm \T\ dry. Bruising that is dark purple, LEFT HIP . Musculoskeletal:. Historical: - Allergies: 19:09 No Known Allergies; iw - Home Meds: 19:12 supposed to be on xarelto [Active]; Aspirin Oral [Active]; iw - PMHx: 19:09 Hypertension; iw 19:12 CVA; iw - PSHx: 19:12 Knee surgery; iw - Immunization history:: Adult Immunizations not up to date. - Coronavirus screen:: The patient has NOT traveled to [place] in the past 14 days. Proceed with normal triage process as indicated. - Social history:: Smoking status: Patient denies any tobacco usage or history of. - Ebola Screening: : Patient negative for fever greater than or equal to 101.5 degrees Fahrenheit, and additional compatible Ebola Virus Disease symptoms Patient denies exposure to infectious person Patient denies travel to an Ebola-affected area in the 21 days before illness onset No symptoms or risks identified at this time. Screenin:31 Abuse screen: Denies threats or abuse. Denies injuries from another. Nutritional ls4 screening: No deficits noted. Tuberculosis screening: No symptoms or risk factors identified. Fall Risk None identified. Assessment: 20:27 Reassessment: Patient appears in no apparent distress at this time. No changes from ls4 previously documented assessment. Patient and/or family updated on plan of care and expected duration. Pain level reassessed. Patient is alert, oriented x 3, equal unlabored respirations, skin warm/dry/pink. General: SEE TRIAGE ASSESSMENT . 21:00 Reassessment: Patient appears in no apparent distress at this time. No changes from ls4 previously documented assessment. Patient and/or family updated on plan of care and expected duration. Pain level reassessed. Patient is alert, oriented x 3, equal unlabored respirations, skin warm/dry/pink. 22:04 Reassessment: WHEN I ASKED PT WHEN SHE FELL, PT STATED THAT SHE FALLS ALL THE TIME. ls4 23:45 Reassessment: Patient appears in no apparent distress at this time. No changes from ls4 previously documented assessment. Patient and/or family updated on plan of care and expected duration. Pain level reassessed. Patient is alert, oriented x 3, equal unlabored respirations, skin warm/dry/pink. 11/14 01:00 Reassessment: Patient appears in no apparent distress at this time. No changes from wh previously documented assessment. Patient and/or family updated on plan of care and expected duration. Pain level reassessed. Patient is alert, oriented x 3, equal unlabored respirations, skin warm/dry/pink. Psych: 11/13 20:27 Subjective: Patient's mood is DEFENSIVE. PT STATES THAT EVERYONE THINKS SHE IS CRAZY ls4 Delusions are persecutory, Hallucinations are visual. Objective: Patient is cooperative, defensive, Speech is normal, Affect is appropriate. Interventions: Patient placed in hospital gown. Urine collected and sent for urine drug test. Suicide Risk Assessment: Sad Person Scale: Sex of patient: Female: Score 0 points. Age of patient: Score 1 point if patient is over 65. Depression: Score 0 point if signs of depression are not present. Previous Attempt: Score 0 point if patient has not previously attempted suicide. Substance Abuse: Score 0 point if patient does not abuse alcohol or drugs. Rational Thinking: Score 0 point if patient has rational thinking. Social Support: Score 0 if social support is present/available. Organized Plan: Score 0 if patient did not have an organized plan in place. Relationship: Score 1 point if patient is , , , or for a single male Chronic Sickness: Score 0 point if patient does not have a chronic illness, debilitating, or severe disorder. TOTAL POINTS: If total points are 0-2, proposed clinical action is to send home with follow-up. Safety Checks: Visitors are present. Pt denies substance abuse. Commitment: NONE. Vital Signs: 19:10 BP 129 / 89; Pulse 105; Resp 16 S; Temp 98.7; Pulse Ox 98% on R/A; Weight 49.9 kg; iw Height 5 ft. 1 in. (154.94 cm); 20:00 BP 140 / 91; Pulse 94; Resp 14; Pulse Ox 97% on R/A; ls4 21:00 BP 163 / 75; Pulse 87; Resp 14; Temp 98.2; Pulse Ox 97% on R/A; Pain 0/10; ls4 22:05 BP 174 / 96; Pulse 78; Resp 14; Temp 98.0(O); Pulse Ox 98% on R/A; Pain 0/10; ls4 23:00 BP 162 / 71; Pulse 102; Resp 14; Temp 98.2(O); Pulse Ox 97% on R/A; Pain 0/10; ls4 23:44 BP 160 / 70; Pulse 99; Resp 14; Pulse Ox 98% on R/A; Pain 0/10; ls4 11/14 01:00 BP 167 / 81; Pulse 98; Resp 16; Pulse Ox 96% on R/A; wh 11/13 19:10 Body Mass Index 20.78 (49.90 kg, 154.94 cm) iw ED Course: 11/13 19:04 Patient arrived in ED. as 19:08 Triage completed. iw 19:10 Arm band placed on. iw 19:13 Barb Judge, ABBY is Primary Nurse. ls4 19:31 Lucas Shine PA is PHCP. cp 19:31 Thang Kwong MD is Attending Physician. cp 19:31 Patient has correct armband on for positive identification. Placed in gown. Bed in low ls4 position. Call light in reach. Side rails up X 1. case monitor on. Pulse ox on. NIBP on. 19:31 No provider procedures requiring assistance completed. ls4 20:20 Urine Microscopic Only Sent. ls4 20:20 Troponin (emerg Dept Use Only) Sent. ls4 20:20 PT-INR Sent. ls4 20:21 Urine obtained. Labs ordered per protocol. Drawn by ED staff. ls4 20:21 NT PRO-BNP Sent. ls4 20:21 Magnesium Sent. ls4 20:21 LFT's Sent. ls4 20:21 Basic Metabolic Panel Sent. ls4 20:21 CBC with Diff Sent. ls4 20:21 XRAY Chest (1 view) Sent. ls4 20:44 XRAY Pelvis Sent. ls4 22:03 Urine Dipstick--Ancillary (enter results) Sent. ls4 23:44 Ron Mcdowell MD is Hospitalizing Provider. 11/14 01:36 Patient admitted, IV remains in place. Administered Medications: 11/13 20:50 Drug: NS 0.9% 500 ml Route: IV; Rate: 500 ml/hr; Site: left antecubital; 4 11/14 01:36 Follow up: Response: No adverse reaction; IV Status: Completed infusion 11/13 22:02 Drug: Rocephin 1 grams Route: IV; Rate: calculated rate; Site: left antecubital; 4 11/14 01:36 Follow up: Response: No adverse reaction; IV Status: Completed infusion 11/13 22:02 Drug: NS 0.9% 1000 ml Route: IV; Rate: 75 ml/hr; Site: left antecubital; 4 11/14 01:36 Follow up: Response: No adverse reaction; IV Status: Completed infusion 11/13 23:58 Not Given (Physician Discretion): Ativan 0.5 mg IVP once 11/14 00:05 Drug: Demerol - Meperidine 12.5 mg Route: IVP; Site: left antecubital; ls4 00:35 Follow up: Response: No adverse reaction; Marked relief of symptoms; Pain is decreased ls4 Outcome: 11/13 23:46 Decision to Hospitalize by Provider. 11/14 01:35 Admitted to Tele accompanied by tech, family with patient, via stretcher, room 402, with chart, Report called to Laurence MORA Condition: stable Instructed on the need for admit. 02:00 Patient left the ED. Signatures: Bharati Riggins Irene, RN RN iw Page, Corey, PA PA Ben Head Barb Judge RN RN ls4 Corrections: (The following items were deleted from the chart) 11/13 22:12 22:09 Condition: stable ls4 ls4
--- NOTE | 2019-11-13 23:48 | EDPHYS ---
Physician Documentation [facility] Name: Dominik Washington Age: 79 yrs Sex: Female : 1940 Arrival Date: 11/13/2019 Time: 19:04 Bed 13 Private MD: ED Physician Thang Kwong HPI: 11/13 19:45 This 79 yrs old Female presents to ER via Wheelchair with complaints of cp Altered Mental Status. 19:45 The patient presents to the emergency department with psychosis, has experienced visual cp hallucinations, son reports patient called law enforcement multiple times today complaining that strangers were in her home. Onset: The symptoms/episode began/occurred at an unknown time. The patient presents with confusion. Possible causes: unknown. Associated signs and symptoms: Pertinent positives: weakness, left leg and knee pain, Pertinent negatives: abdominal pain, chest pain. Patient's baseline: Neuro: alert and fully oriented, Motor: no deficits, Ambulation: walks with assist only, uses walker, Speech: normal. Historical: - Allergies: 19:09 No Known Allergies; iw - Home Meds: 19:12 supposed to be on xarelto [Active]; Aspirin Oral [Active]; iw - PMHx: 19:09 Hypertension; iw 19:12 CVA; iw - PSHx: 19:12 Knee surgery; iw - Immunization history:: Adult Immunizations not up to date. - Coronavirus screen:: The patient has NOT traveled to [place] in the past 14 days. Proceed with normal triage process as indicated. - Social history:: Smoking status: Patient denies any tobacco usage or history of. - Ebola Screening: : Patient negative for fever greater than or equal to 101.5 degrees Fahrenheit, and additional compatible Ebola Virus Disease symptoms Patient denies exposure to infectious person Patient denies travel to an Ebola-affected area in the 21 days before illness onset No symptoms or risks identified at this time. ROS: 19:50 Constitutional: Negative for fever, poor PO intake. cp 19:50 Eyes: Negative for injury, pain, redness, and discharge. cp 19:50 ENT: Negative for drainage from ear(s), ear pain, sore throat, difficulty swallowing, difficulty handling secretions. 19:50 Cardiovascular: Negative for chest pain, edema, palpitations. 19:50 Respiratory: Negative for cough, shortness of breath, wheezing. 19:50 Abdomen/GI: Negative for abdominal pain, vomiting, diarrhea, constipation, black/tarry stool, rectal bleeding. 19:50 Back: Negative for pain at rest, pain with movement. 19:50 Skin: Negative for rash. 19:50 Neuro: Positive for altered mental status, weakness. 19:50 Psych: Positive for visual hallucinations. 19:50 All other systems are negative. Exam: 19:55 Constitutional: The patient appears in no acute distress, alert, awake, cp non-diaphoretic, non-toxic, well developed, well nourished. 19:55 Head/Face: Normocephalic, atraumatic. cp 19:55 Eyes: Periorbital structures: appear normal, Pupils: equal, round, and reactive to light and accomodation, Extraocular movements: intact throughout, Conjunctiva: normal, no exudate, no injection, Sclera: no appreciated abnormality, Lids and lashes: appear normal, bilaterally. 19:55 ENT: External ear(s): are unremarkable, Ear canal(s): are normal, clear, TM's: bulging, is not appreciated, bilaterally, dullness, bilaterally, erythema, is not appreciated, bilaterally, Nose: is normal, Mouth: Lips: moist, Oral mucosa: pink and intact, moist, Posterior pharynx: is normal, airway is patent, no erythema, no exudate. 19:55 Neck: C-spine: vertebral tenderness, is not appreciated, crepitus, is not appreciated, ROM/movement: is normal, is supple, without pain, no range of motions limitations, no nuchal rigidity. 19:55 Chest/axilla: Inspection: normal, Palpation: is normal, no crepitus, no tenderness. 19:55 Cardiovascular: Rate: tachycardic, Rhythm: regular, Edema: is not appreciated, JVD: is not appreciated. 19:55 Respiratory: the patient does not display signs of respiratory distress, Respirations: normal, no use of accessory muscles, no retractions, labored breathing, is not present, Breath sounds: are clear throughout, no decreased breath sounds, no stridor, no wheezing. 19:55 Abdomen/GI: Inspection: abdomen appears normal, Bowel sounds: active, all quadrants, Palpation: abdomen is soft and non-tender, in all quadrants. 19:55 Back: pain, is absent, ROM is normal. 19:55 Musculoskeletal/extremity: Extremities: grossly normal except: noted in the left hip: pain, tenderness, ROM: limited passive range of motion due to pain, in the left hip, Perfusion: the extremity is normally perfused throughout, Sensation intact. Joints: the left knee displays painful range of motion, tenderness. 19:55 Skin: cellulitis, is not appreciated, no rash present. 19:55 Neuro: Orientation: to person, place, situation, Mentation: lucid, able to follow commands, Motor: moves all fours, strength is normal. 19:55 Psych: Behavior/mood is uncooperative, Affect is animated. 21:00 ECG was reviewed by the Attending Physician. cp Vital Signs: 19:10 BP 129 / 89; Pulse 105; Resp 16 S; Temp 98.7; Pulse Ox 98% on R/A; Weight 49.9 kg; iw Height 5 ft. 1 in. (154.94 cm); 20:00 BP 140 / 91; Pulse 94; Resp 14; Pulse Ox 97% on R/A; ls4 21:00 BP 163 / 75; Pulse 87; Resp 14; Temp 98.2; Pulse Ox 97% on R/A; Pain 0/10; ls4 22:05 BP 174 / 96; Pulse 78; Resp 14; Temp 98.0(O); Pulse Ox 98% on R/A; Pain 0/10; ls4 23:00 BP 162 / 71; Pulse 102; Resp 14; Temp 98.2(O); Pulse Ox 97% on R/A; Pain 0/10; ls4 23:44 BP 160 / 70; Pulse 99; Resp 14; Pulse Ox 98% on R/A; Pain 0/10; ls4 11/14 01:00 BP 167 / 81; Pulse 98; Resp 16; Pulse Ox 96% on R/A; wh 11/13 19:10 Body Mass Index 20.78 (49.90 kg, 154.94 cm) iw MDM: 11/13 19:39 Patient medically screened. cp 20:00 Differential diagnosis: acute psychotic break, psychosis secondary to non-compliance, cp UTI, sepsis, head injury. 23:45 Data reviewed: vital signs, nurses notes, lab test result(s), EKG, radiologic studies, cp CT scan, plain films, I have discussed the patient's presentation/case with the attending Emergency Department Physician;. 23:45 Test interpretation: by ED physician or midlevel provider: ECG. 23:45 Physician consultation: Ron Mcdowell MD was called at 23:40, was contacted at 23:40, cp regarding admission, to the medical/surgical unit. patient's condition, would like consultation with Dr. Velazco. 11/13 19:47 Order name: Basic Metabolic Panel 11/13 19:47 Order name: CBC with Diff 11/13 19:47 Order name: LFT's 11/13 19:47 Order name: Magnesium cp 11/13 19:47 Order name: NT PRO-BNP 11/13 19:47 Order name: PT-INR 11/13 19:47 Order name: Troponin (emerg Dept Use Only) 11/13 19:47 Order name: Urine Microscopic Only 11/13 20:09 Order name: CBC with Automated Diff; Complete Time: 20:10 EDMS 11/13 20:10 Interpretation: Normal except: WBC 11.8; MPV 7.2; JOHN% 74.3; NEUT A 8.7. 11/13 20:10 Order name: Protime (+INR); Complete Time: 20:10 EDMS 11/13 20:20 Order name: Urine Dipstick--Ancillary (enter results) md 11/13 20:27 Order name: Urine Dipstick-Ancillary; Complete Time: 20:34 EDMS 11/13 20:35 Interpretation: Normal except: UBLD 3+; UPROT 2+; UESTR 1+. 11/13 20:46 Order name: Basic Metabolic Panel; Complete Time: 21:12 EDMS 11/13 21:12 Interpretation: Normal except: CL 111; GLUC 147; BUN 29; GFR 41. 11/13 20:46 Order name: Liver (Hepatic) Function; Complete Time: 21:12 EDMS 02 21:12 Interpretation: Normal except: ALK 138; GLOB 4.0; A/G 1.0. 11/13 19:47 Order name: XRAY Chest (1 view) cp 11/13 19:47 Order name: XRAY Pelvis 11/13 19:59 Order name: XRAY Knee LEFT 3 view 11/13 19:59 Order name: CT Head Brain wo Cont cp 11/13 20:46 Order name: Troponin (Emerg Dept Use Only); Complete Time: 21:12 EDMS 11/13 20:46 Order name: NT PRO-BNP; Complete Time: 21:12 EDMS 11/13 20:46 Order name: Magnesium; Complete Time: 21:12 EDMS 11/13 20:54 Order name: RAD; Complete Time: 21:12 EDMS 11/13 20:54 Order name: RAD; Complete Time: 21:12 EDMS 11/13 20:54 Order name: RAD; Complete Time: 21:12 EDMS 11/13 21:03 Order name: CT; Complete Time: 21:12 EDMS 11/13 21:07 Order name: Urine Microscopic Only; Complete Time: 21:12 EDMS 11/13 21:12 Interpretation: Abnormal. 11/13 22:01 Order name: CT Abd/Pelvis - Without Contrast cp 11/13 19:37 Order name: EKG - Nurse/Tech; Complete Time: 20:55 [facility] 11/13 19:37 Order name: EKG; Complete Time: 19:38 [facility] 11/13 19:37 Order name: Urine Dipstick-Ancillary (obtain specimen); Complete Time: 20:20 [facility] 11/13 19:47 Order name: Cardiac monitoring; Complete Time: 20:20 11/13 19:47 Order name: IV Saline Lock; Complete Time: 20:20 11/13 19:47 Order name: Labs collected and sent; Complete Time: 20:20 11/13 19:47 Order name: O2 Per Protocol; Complete Time: 20:20 11/13 19:47 Order name: O2 Sat Monitoring; Complete Time: 20:21 11/13 19:47 Order name: Cath; Complete Time: 20:20 11/13 21:12 Order name: Vital Signs: recheck to include temp; Complete Time: 21:37 cp EC:00 Rate is 93 beats/min. Rhythm is regular. DC interval is normal. QRS interval is normal. cp QT interval is normal. Interpreted by me. Reviewed by me. Administered Medications: 20:50 Drug: NS 0.9% 500 ml Route: IV; Rate: 500 ml/hr; Site: left antecubital; [facility] 11/14 01:36 Follow up: Response: No adverse reaction; IV Status: Completed infusion 11/13 22:02 Drug: Rocephin 1 grams Route: IV; Rate: calculated rate; Site: left antecubital; ls4 11/14 01:36 Follow up: Response: No adverse reaction; IV Status: Completed infusion 11/13 22:02 Drug: NS 0.9% 1000 ml Route: IV; Rate: 75 ml/hr; Site: left antecubital; ls4 02 01:36 Follow up: Response: No adverse reaction; IV Status: Completed infusion 11/13 23:58 Not Given (Physician Discretion): Ativan 0.5 mg IVP once 11/14 00:05 Drug: Demerol - Meperidine 12.5 mg Route: IVP; Site: left antecubital; ls4 00:35 Follow up: Response: No adverse reaction; Marked relief of symptoms; Pain is decreased ls4 Disposition: 03:13 Co-signature as Attending Physician, Thang Kwong MD. rn Disposition: 11/13/19 23:46 Hospitalization ordered by Ron Mcdowell for Inpatient Admission. Preliminary diagnosis are Multiple fractures of pelvis with stable disruption of pelvic ring, Altered mental status, unspecified, Urinary tract infection, site not specified. - Bed requested for Telemetry/MedSurg (Inpatient). - Status is Inpatient Admission. - Condition is Stable. - Problem is new. - Symptoms have improved. Signatures: Dispatcher [employer] EDMS Prachi Zepeda RN RN dw Williams, Irene, RN RN iw Nieto, Roman, MD MD rn Page, Corey, PA PA cp Habalo, Winsy Barb Judge RN RN ls4 Corrections: (The following items were deleted from the chart) 00:41 11/13 19:40 This 79 yrs old Female presents to ER via Wheelchair with cp complaints of Altered Mental Status. 11/14 01:13 02 23:46 Hospitalization Ordered by Ron Mcdowell MD for Inpatient Admission. dw Preliminary diagnosis is Multiple fractures of pelvis with stable disruption of pelvic ring; Altered mental status, unspecified; Urinary tract infection, site not specified. Bed requested for Telemetry/MedSurg (Inpatient). Status is Inpatient Admission. Condition is Stable. Problem is new. Symptoms have improved. 02/13 02:00 01:13 11/13/2019 23:46 Hospitalization Ordered by Ron Mcdowell MD for Inpatient Admission. Preliminary diagnosis is Multiple fractures of pelvis with stable disruption of pelvic ring; Altered mental status, unspecified; Urinary tract infection, site not specified. Bed requested for Telemetry/MedSurg (Inpatient). Status is Inpatient Admission. Condition is Stable. Problem is new. Symptoms have improved. dw
[2019-11-14] MEDS ORDERED: MEPERIDINE HCL 25 MG/0.5 ML ONE (00:02)
[2019-11-14] MEDS ORDERED: ONDANSETRON 4 MG/2 ML VIAL IV PRN (01:01)
[2019-11-14] MEDS ORDERED: MORPHINE 2 MG/ML SYR IV PRN (01:01)
[2019-11-14] MEDS ORDERED: WATER FOR INJ,STERILE 10 ML IM PRN (01:21)
[2019-11-14] MEDS ORDERED: ZIPRASIDONE MESYLA 20 MG/VIAL IM PRN (01:21)
[2019-11-14] MEDS ORDERED: NA CHLORIDE 0.9% 1,000 ML IV SCH (02:00)
[2019-11-14 02:58] VITALS: BMI 23.5
[2019-11-14 04:17] LABS: Absolute Lymphocytes (CBC) 2.6 K/uL (0.7-4.9); Basophils % 0.5 % (0-1.3); Hematocrit 31.9 % (36.0-45.0); Lymphocytes % 29.6 % (15.3-44.8); MPV 7.5 fL (7.6-11.3)
[2019-11-14 04:18] LABS: Protime INR 1.11
[2019-11-14 04:31] LABS: Bilirubin Total 0.3 mg/dL (0.2-1.0); Potassium 3.6 mmol/L (3.5-5.1); Protein, Total 6.7 g/dL (6.4-8.2)
--- NOTE | 2019-11-14 06:42 | P.HP ---
Certification for Inpatient Patient admitted to: Inpatient With expected LOS: >2 Midnights Patient will require the following post-hospital care: None Practitioner: I am a practitioner with admitting privileges, knowledge of patient current condition, hospital course, and medical plan of care. Services: Services provided to patient in accordance with Admission requirements found in Title 42 Section 412.3 of the Code of Federal Regulations Patient History Date of Service: 11/14/19 Reason for admission: s/p fall with minimally displaced fractures of the superior & inferior pu History of Present Illness: Patient is a 79-year-old female came to the hospital after being found confused. Patient was apparently at home and calling out to the neighbors for help. Her family brought her into the ER for further evaluation. In the ER it was noted she has some bruising to her hip. X-rays were performed which showed she has suffered an inferior and superior ramus fracture. She was also found having urinary tract infection. She will be admitted to the hospital for further workup. Will get an MRI of the brain to rule out a CVA. She is confused and she is not answering many of my questions appropriately. She will be admitted for further workup. Allergies No Known Allergies Allergy (Unverified 05/20/17 01:56) Home Medications: Aspirin [Aspirin EC 81 MG] 81 mg PO DAILY 05/25/17 - Past Medical/Surgical History Has patient received pneumonia vaccine in the past: No Diabetic: No -: HTN -: CVA -: R knee replacement 2001 -: hip surgery - Family History Father History Unknown: Yes Mother History Unknown: Yes Medical History: Other (see notes) Notes: arthritis - Social History Smoking Status: Never smoker Alcohol use: Yes CD- Drugs: No Caffeine use: Yes Place of Residence: Home Review of Systems is unable to be obtained Physical Examination - Vital Signs Temperature: 98.0 F Blood Pressure: 150/78 Pulse: 96 Respirations: 16 Pulse Ox (%): 96 - Physical Exam General: Alert, In no apparent distress, Confused, Delirious HEENT: Atraumatic, PERRLA, Mucous membr. moist/pink, EOMI, Sclerae nonicteric Neck: Supple, 2+ carotid pulse no bruit, No LAD, Without JVD or thyroid abnormality Respiratory: Clear to auscultation bilaterally, Normal air movement Cardiovascular: Regular rate/rhythm, Normal S1 S2 Gastrointestinal: Normal bowel sounds, No tenderness Musculoskeletal: No tenderness Integumentary: No rashes Neurological: Normal gait, Normal speech, Normal strength at 5/5 x4 extr, Normal tone, Normal affect Lymphatics: No axilla or inguinal lymphadenopathy - Studies Laboratory Data (last 24 hrs) 11/13/19 19:53: PT 13.3 H, INR 1.13 11/13/19 19:53: WBC 11.8 H, Hgb 12.2, Hct 37.1, Plt Count 293 11/13/19 19:53: Sodium 145, Potassium 3.5, BUN 29 H, Creatinine 1.26, Glucose 147 H, Magnesium 2.0, Total Bilirubin 0.3, AST 26, ALT 21, Alkaline Phosphatase 138 H Assessment & Plan - Problems (Diagnosis) (1) Altered mental status Current Visit: Yes Status: Acute (2) UTI (urinary tract infection) Current Visit: Yes Status: Acute (3) Fracture of multiple pubic rami Current Visit: Yes Status: Acute - Plan -IV hydration -IV antibiotics -cultures are pending -check renal function and electrolytes -MRI of the brain -check thyroid studies and cortisol studies -bed check in place -physical therapy evaluation once mentation is improved -discuss POC with family Discharge Plan: Home Plan to discharge in: Greater than 2 days - Advance Directives Does patient have a Living Will: No Does patient have a Durable POA for Healthcare: No
[2019-11-14 07:42] LABS: Thyroid Stimulating Hormone 0.716 uIU/mL (0.360-3.740)
--- NOTE | 2019-11-14 09:46 | RAD REPORT ---
EXAM DESCRIPTION: - CP - 11/14/2019 9:25 am CLINICAL HISTORY: AMS Headache, drowsiness, CVA symptomology COMPARISON: Head C Spine Mpr Wo Con dated 05/19/2017 TECHNIQUE: Real-time sonographic evaluation of both carotid systems was performed. Doppler interroga tion was performed with waveform tracing bilaterally. FINDINGS: Normal high resistance waveforms are noted in both external carotid arteries. The common c arotid arteries and internal carotid arteries show normal low resistance waveforms. Mild to moderate hard plaquing is seen in both carotid bulbs, mildly worse on the left. Peak systolic and end diastolic velocity values and the ICA/CCA ratios are in the non-hemodynamically significant range. Antegrade flow seen in both vertebral arteries. IMPRESSION: Mild to moderate hard plaquing is seen in both carotid bulbs, mildly worse on the left. No evidence of a hemodynamically significant stenosis.
[2019-11-14] MEDS: NACHLORIDE 0.45% 1,000 ML IV SCH ×2 (10:02→22:06)
[2019-11-14] MEDS: CEFTRIAXONE/SWI 1gm 1 GM/10 ML SYR IV SCH ×2 (10:02→22:06)
[2019-11-14] MEDS: THIAMINE HCL 100 MG TABLET PO SCH (10:02)
[2019-11-14] MEDS: ASPIRIN EC 81 MG TAB PO SCH (10:03)
[2019-11-14] MEDS: FOLIC ACID 1 MG TABLET PO SCH (10:03)
--- NOTE | 2019-11-14 11:17 | RAD REPORT ---
EXAM DESCRIPTION: CT ABDOMEN PELVIS WITHOUT IV CONTRAST COMPARISON: None CLINICAL HISTORY: [facility] MAIN TECHNIQUE: Multiple helical axial images were obtained through the abdomen and pelvis without intrav enous contrast. Sagittal and coronal reformatted images are reviewed as well. All CT scans at this facility use dose modulation, iterative reconstruction, and/or weight-based dosi ng when appropriate to reduce radiation dose to as low as reasonably achievable. FINDINGS: Lung bases: Small calcified granuloma in the left lower lobe is present. There is mild dep endent atelectasis. Liver: There is a 3 cm rounded hypodense cyst in the right hepatic lobe with tiny peripheral calcific ation. A smaller 1.6 cm hypodense cyst in the inferior right hepatic lobe more inferiorly is present. Homogenous attenuation otherwise noted. Gallbladder/biliary: Gallbladder appears unremarkable. No calcified gallstones. No evidence of biliar y ductal dilatation. Pancreas: Atrophic changes noted. Spleen: Unremarkable. Adrenals: Unremarkable. Kidneys and ureters: No evidence of renal or ureteral stones. No hydronephrosis. Bladder: Unremarkable. Pelvic organs: Unremarkable. Bowel/abdominal wall: There is a small right lower ventral abdominal wall hernia containing nondilate d small bowel. Colonic diverticula are noted. No evidence of bowel obstruction. No bowel wall thicken ing. Appendix appears unremarkable. Peritoneum: No free air. No significant free fluid. Lymph nodes: Unremarkable. Vasculature: Aortoiliac atherosclerosis present. Soft tissues: There is mild soft tissue stranding near the left pelvic fractures. Bones: There is an acute appearing, minimally displaced fracture of the anterior left inferior pubic ramus. There is an acute buckle fracture of the posterior left inferior pubic ramus. There is an acut e, minimally displaced fracture of the left superior pubic ramus. Chronic appearing right-sided pars defect L5 is demonstrated. Multilevel degenerative changes of the lumbar spine demonstrated with face t arthropathy and multilevel vacuum disc phenomenon. There is mild disc space narrowing at L4-5 and 4 mm anterior subluxation of L4 relative to L5. There is suggestion of prior right proximal femoral avila rdware. IMPRESSION: 1. Acute appearing fractures of the left superior and inferior rami. 2. Small right lower ventral abdominal wall hernia containing nondilated small bowel. 3. Colonic diverticulosis. Electronically signed by: Brett Galindo MD 11/13/2019 11:[address] SCIENTIST Due to temporary technical issues with the PACS/Fluency reporting system, reports are being signed by the in house radiologist as a courtesy to ensure prompt reporting. The interpreting radiologist is f ully responsible for the content of the report.
--- NOTE | 2019-11-14 11:31 | P.PN ---
Subjective Date of Service: 11/14/19 Primary Care Provider: None Chief Complaint: s/p fall with minimally displaced fractures of the superior & inferior pu Subjective: Demented (Suspect underlying dementia), Other (Patient appears stable at this time. Son at bedside) Physical Examination - Vital Signs Temperature: 98.0 F Blood Pressure: 150/78 Pulse: 96 Respirations: 16 Pulse Ox (%): 96 - Physical Exam General: Alert, Demented (Suspect dementia) HEENT: Atraumatic Neck: Supple Respiratory: Clear to auscultation bilaterally, Normal air movement Cardiovascular: Normal pulses, Regular rate/rhythm Gastrointestinal: Normal bowel sounds, Soft and benign, Non-distended Integumentary: No erythema, No warmth, No cyanosis Neurological: Normal speech, Normal strength at 5/5 x4 extr, Normal tone, Dementia - Studies Laboratory Data (last 24 hrs) 11/13/19 19:53: PT 13.3 H, INR 1.13 11/13/19 19:53: WBC 11.8 H, Hgb 12.2, Hct 37.1, Plt Count 293 11/13/19 19:53: Sodium 145, Potassium 3.5, BUN 29 H, Creatinine 1.26, Glucose 147 H, Magnesium 2.0, Total Bilirubin 0.3, AST 26, ALT 21, Alkaline Phosphatase 138 H Medications List Reviewed: Yes Assessment & Plan Discharge Plan: Other ([facility] facility then transition to long-term care) Plan to discharge in: 72 Hours Physician Review Additional Text: Impression: Mechanical fall leading to left superior and and inferior rami fractures Acute encephalopathy likely toxic related to UTI versus underlying dementia versus underlying psychiatric illness History of CVA suspect underlying dementia Hypertension History of pacemaker Acute renal injury likely from dehydration Anemia likely of chronic disease Plan: Mechanical fall leading to left superior and and inferior rami fractures: Spoke with orthopedics. No surgical intervention required at this time. Physical therapy will be initiated. Spoke with family member. Family prefers skilled placement then long-term care. Social work consulted. Will continue to monitor patient closely. Fall and aspiration precaution in place. Acute encephalopathy likely toxic related to UTI versus underlying dementia versus underlying psychiatric illness: CT scan negative. Suspect UTI. Urine culture pending. Continue IV antibiotic therapy. Patient on DVT prophylaxis. Will consult Neurology and Psychiatry for further evaluation and recommendation. Not able to do MRI due to history of pacemaker. Suspect underlying dementia. History of CVA suspect underlying dementia: Will continue with aspirin, metoprolol, and statin medication. Will also add folic acid and thiamine. Neurology consulted. Will maintain blood pressure control. Not able to get MRI due to history of pacemaker. Hypertension: Will start metoprolol. Will adjust accordingly. History of pacemaker: Will monitor on telemetry. Acute renal injury likely from dehydration: Continue to adjust IV fluids. Electrolyte protocol in place. Anemia likely of chronic disease: Will check iron and B12 studies. Time Spent Managing Pts Care (In Minutes): 55
--- NOTE | 2019-11-14 11:38 | ECHO ---
HEIGHT: 5 ft 2 in WEIGHT: 128 lb 11.2 oz DATE OF STUDY: 11/14/[address]: Sage Mireles DO 2-DIMENSIONAL: YES M.MODE: YES DOPPLER: YES COLOR FLOW: YES TDS: NO PORTABLE: NO DEFINITY: NO BUBBLE STUDY: NO DIAGNOSIS: ALTERED MENTAL STATUS CARDIAC HISTORY: CATHERIZATION: NO SURGERY: NO PROSTHETIC VALVE: NO PACEMAKER: NO MEASUREMENTS (cm) DIASTOLIC (NORMALS) SYSTOLIC (NORMALS) IVSd 1.0 (0.6-1.2) LA Diam (1.9-4.0) LVEF 58% LVIDd 4.5 (3.5-5.7) LVIDs 3.1 (2.0-3.5) %FS 30% LVPWd 1.1 (0.6-1.2) Ao Diam 3.4 (2.0-3.7) 2 DIMENSIONAL ASSESSMENT: RIGHT ATRIUM: NORMAL LEFT ATRIUM: NORMAL RIGHT VENTRICLE: NORMAL LEFT VENTRICLE: NORMAL TRICUSPID VALVE: NORMAL MITRAL VALVE: NORMAL PULMONIC VALVE: NORMAL AORTIC VALVE: MILD LEAFLET THICKENING PERICARDIAL EFFUSION: NONE AORTIC ROOT: NORMAL LEFT VENTRICULAR WALL MOTION: NORMAL. DOPPLER/COLOR FLOW: MILD AORTIC, MITRAL AND TRICUSPID REGURGITATION. NO AORTIC STENOSIS. NORMAL RIGHT VENTRICULAR SYSTOLIC PRESSURE. COMMENTS: NORMAL LEFT VENTRICULAR EJECTION FRACTION. MILD AORTIC, LEAFLET THICKENING. MILD AORTIC, MITRAL AND TRICUSPID REGURGITATION. TECHNOLOGIST: WILMER RAMSAY
--- NOTE | 2019-11-14 11:42 | EKG ---
Test Date: 2019-11-13 Test Time: 20:53:20 Legal Financial Specialist: MAR MEASUREMENT RESULTS: Intervals: Rate: 93 KS: 138 QRSD: 74 QT: 354 QTc: 440 [place]: P: 59 KS: 138 QRS: 57 T: 66 INTERPRETIVE STATEMENTS: Normal sinus rhythm Normal ECG Compared to ECG 05/19/2017 20:16:31 Sinus tachycardia no longer present ST (T wave) deviation no longer present Electronically Signed On 11-14-19 11:41:00 DEEP SUBMERGENCE VEHICLE CREWMEMBER by Jaiden Steward
[2019-11-14 12:30] LABS: Ferritin 98.6 ng/mL (8-388)
[2019-11-14] MEDS: ACETAMINOPHEN 500 MG TAB PO PRN ×2 (14:27→22:06)
[2019-11-14] MEDS: ENOXAPARIN 40 MG/0.4 ML SQ SCH (17:37)
[2019-11-14] MEDS: METOPROLOL TAR 25 MG TAB PO SCH (17:38)
[2019-11-14] MEDS ORDERED: METOPROLOL TAR 25 MG TAB PO SCH (18:00)
--- NOTE | 2019-11-14 21:55 | CON ---
Date of Consultation: 11/14/2019 Reason For Consultation: Left knee, left hip pain. History Of Present Illness: Ms. Washington is a 79-year-old female, who was brought to the ER after viviana anne found at home confused. The patient was brought to the ER with symptoms of pain in her left kne e and her left hip. X-rays of her left knee were negative for fracture, dislocation, but did demonst rate some osteoarthritis. X-rays of her pelvis demonstrated minimally displaced superior inferior ra mus fracture on the left side and was consulted for further evaluation and treatment recommendations. The patient does have some dementia, but on exam the patient does report some pain on her left hip and some pain in her left knee. Review of Systems: As above, otherwise negative. Past Medical History: Includes hypertension, history of right knee replacement, and history of strok e. Home Medications: Aspirin. Allergies: NO KNOWN DRUG ALLERGIES. Social History: Denies smoking, reports occasional alcohol use, no drug use. Lives at home. Physical Examination: General: No apparent distress. HEENT: Normocephalic, atraumatic. Neck: Supple. Cardiovascular: Brisk cap refill to all digits. Chest: Nonlabored breathing. Abdomen: Nondistended. Psychiatric: Responds to exam. Musculoskeletal: No pain with range of motion in upper left hip, mild swelling of the left knee. No erythema or signs of infection. No pain with flexion and extension of the knee. Mild tenderness to palpation over the medial joint line. Moves her toes grossly. Bilateral upper extremities function al range of motion without pain. No gross deformities. No obvious dislocations. Right lower extrem ity functional range without pain. No gross deformities. No obvious dislocations. X-rays: X-rays of the left knee are negative for any fracture or dislocation. Does demonstrate mode imfa-dr-nhydye osteoarthritis. We inspected the medial compartment. X-rays, CAT scan of the pelvis demonstrate minimally displaced fractures of the left superior and inferior pubic rami. Assessment: Dominik is a 79-year-old female with left knee osteoarthritis and left superior pubic a nd inferior pubic rami fractures. Plan: No surgical intervention is indicated at this time. Physical therapy will be consulted to aid with mobilization. The patient may be weightbearing as tolerated on her left lower extremity. She may follow up in my clinic in 2 weeks for knee evaluation and repeat x-rays of her abdomen and pelvis . CV/MODL Voice ID: [id number] Report ID: [id number]
[2019-11-14] MEDS: ATORVASTATIN 40 MG TAB PO SCH (22:06)
--- NOTE | 2019-11-14 22:31 | CON ---
Reason For Consultation: Consultation called because of confusion after a fall. 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 The reason for this admission is she was found confused down and apparently had pain in her hip and as a result, she was brought into [facility] for an evaluation. The patient was noted to have bruising in her hip. Pelvic x-ray in the em ergency room identified minimally displaced multiple fractures, but were minimally displaced in the s uperior and inferior pubic rami on the left. Her knee x-ray, 3 views, showed diffuse osteopenia, pro minent osteoarthritis in the medial compartment with sclerosis and osteophytosis. There is no joint effusion. Head CT scan showed no acute intracranial abnormalities. The study showed gliosis in the right frontal lobe and generalized brain atrophy with pykk-eu-ldkypwan chronic small vessel ischemic disease. Carotid artery ultrasound showed no evidence of hemodynamically significant stenosis. Ther e is alrg-vt-tomrxezg hard plaque in both carotid bulbs, mildly worse on the left. Echocardiogram sh owed an ejection fraction of 58% arch, and mitral and tricuspid regurgitation. She had a urinalysis, which showed greater than 50 white blood cells, 20-50 bacteria, 1+ esterase, 3+ blood, 2+ protein, and she was therefore diagnosed with a urinary tract infection given Rocephin and then admitted. Past Medical History: Stroke with good resolution, hypertension. Surgical History: Right knee replacement and previous hip surgery. Allergies: NO KNOWN DRUG ALLERGIES. Medications: At home, just aspirin. Family History: Not known. Social History: No alcohol, tobacco, or IV drug use. She resides at home. She has full code status . Review of Systems: She denies any recent chills or fever. Has mild arthralgias in multiple joints in the lower extremit ies. No rash. No psychiatric issues. No genitourinary or gastrointestinal issues. Physical Examination: Vital Signs: Blood pressure 129/66, pulse 91, respiratory rate 16 to 20, temperature 98.4, oxygen sa turation 96% on room air, weight 128 pounds, height 5 feet 2 inches, BMI 23. General: Ms. Washington is resting in bed. She is in no acute distress. HEENT: She is normocephalic and atraumatic. Sclerae are anicteric. Oropharynx is moist and pink. Neck: Supple. Chest: Clear. Heart: Regular. Extremities: Show mild edema in the lower extremities. No cyanosis or clubbing. Neurologic: She is alert and oriented to person, she knows the city, the hospital, the year, the mon, but not the exact date. She follows simple commands normally. Cranial nerves I through XII show no focal deficits. Motor examination, she has no weakness in upper extremities bilaterally. She avila s some give-way weakness with hip flexion bilaterally secondary to the pain related to her fractures. Knee extension and flexion shows full strength. Sensation intact in upper and lower extremities. Coordination intact in upper and lower extremities. In terms of her gait, she was evaluated by the p hysical therapist and it was determined that she required nqbamnlc-jt-zjgyorc assistance at this poin t to ambulate safely with a walker. She did show poor standing balance and required support due to l eft knee buckling and she could not support herself without the walker and required moderate assistan ce for ywb-ux-uafow and max assist for ambulation. Laboratory Studies: Complete blood count with differential shows initially an elevated white count o f 11.8, now 8.9 and today hemoglobin initially 12.2 and today 10.7, platelets 250, INR 1.11. [employer] fabian show slightly elevated sodium 146, potassium 3.6, chloride 114, carbon dioxide 26, BUN 22, creat inine 0.77, calcium 8.4. For iron, total iron binding capacity, transferrin and transferrin percent saturation were all low. Alkaline phosphatase 108, AST 20, ALT 16. Cholesterol panel shows a choles terol total 193, LDL cholesterol 122, HDL cholesterol 54, lziejclfhlb-ci-TFG ratio 3.57, triglyceride s 87. Procalcitonin less than 0.05. Vitamin B12 level slightly low at 275. TSH normal at 0.716, fr ee T4 normal at 0.93. Electrocardiogram: She has normal sinus rhythm and study is normal. Her abdomen and pelvis CT scan shows acute-appearing fractures of the left superior and inferior rami. There is a small right lower quadrant abdominal wall hernia containing non-dilated small bowel and there is colonic diverticulosi s. Assessment And Plan: Ms. Washington is a 79-year-old patient with resolving encephalopathy, likely a combination of toxic encephalopathy from a urinary tract infection and likely mild cognitive impairme nts related to early vascular dementia. She is being treated for urinary tract infection and she now requires maximal assistance to ambulate safely and moderate assistance for transfers. She would robert efit from acute inpatient rehabilitation to improve her gait, coordination, balance, range of motion, endurance, and performance of her activities of daily living. She should continue antibiotics cours e for urinary tract infection. Also, continue aspirin 81 mg, Lipitor 40 mg at bedtime, and folic aci d 1 mg daily for stroke risk reduction. Also, continue with Lopressor 25 mg twice daily for hyperten mitch and she may have vitamin B12 supplementation with at least 1000 mcg daily and continue vitamin B 1 100 mg daily. TAJ/VENKATESH Voice ID: [id number] Report ID: [id number]
[2019-11-15] MEDS: ACETAMINOPHEN 500 MG TAB PO PRN ×2 (05:40→19:59)
[2019-11-15] MEDS: METOPROLOL TAR 25 MG TAB PO SCH ×2 (05:40→17:02)
[2019-11-15 06:13] LABS: Potassium 3.8 mmol/L (3.5-5.1)
[2019-11-15 06:14] LABS: Absolute Lymphocytes (CBC) 3.2 K/uL (0.7-4.9); Basophils % 0.4 % (0-1.3); Hematocrit 35.2 % (36.0-45.0); Lymphocytes % 32.1 % (15.3-44.8); MPV 7.1 fL (7.6-11.3); RBC Red Blood Cell Count 3.83 M/uL (3.86-4.86)
[2019-11-15] MEDS: THIAMINE HCL 100 MG TABLET PO SCH (08:01)
[2019-11-15] MEDS: CEFTRIAXONE/SWI 1gm 1 GM/10 ML SYR IV SCH ×2 (08:01→19:59)
[2019-11-15] MEDS: FOLIC ACID 1 MG TABLET PO SCH (08:02)
[2019-11-15] MEDS: ASPIRIN EC 81 MG TAB PO SCH (08:02)
--- NOTE | 2019-11-15 08:14 | CON ---
Date of Consultation: 11/14/2019 Chief Complaint: Psychiatry is consulted to evaluate the patient on account of acute confusion. Patient does have chronic psychiatric history. History Of Present Illness: On interview, she states that she has about 5 people living in her house, states she has called the local police multiple times and they have refused to her. She states these people are planing to take her house from her. She states there is also a little boy who is also sneaking into her house though the back door. States she feels she has been followed and that they are trying to harm her. Patient denies auditiry hallucination. She denies history of depression, anxiety and panic attack. Denies history of substance abuse. Patient does not have suicidal or homicidal ideation. Objective: Vital Signs: Temperature is , respiratory rate is 20, blood pressure 129/66. Mental Status: Patient is a well-nourished, appropriately dressed, female, who is lying in bed in her room. Patient is guarded and superficially cooperative. Alert and oriented x3, not in any acute distress. Concentration and memory impaired. Speech is spontaneous in rate, rhythm, and volume. Mood is described as okay. Affect worried and not mood congruent. Thought process, linear, at times circumstantial. Thought content, no delusional thinking. No suicidal or homicidal ideation. No rumination or obsession. Patient is not internally preoccupied. Insight and judgment, impulse control is limited to fair. Diagnoses: 1. Schizophrenia chronic 2. Delusional disorder. 3. Delirium. Plan: Recommend start olanzapine 2.5 mg p.o. b.i.d. for psychotic symptoms Recommendations discussed with treatment team and call and left hippa appropriate massage for patient's son. KO/MODL Voice ID: [id number] Report ID: [id number] JUNIOR
[2019-11-15] MEDS: NACHLORIDE 0.45% 1,000 ML IV SCH (10:40)
--- NOTE | 2019-11-15 11:45 | P.PN ---
Subjective Date of Service: 11/15/19 Primary Care Provider: None Chief Complaint: s/p fall with minimally displaced fractures of the superior & inferior pu Subjective: Other (Patient appears stable this time. Mentation much improved.) Physical Examination - Vital Signs Temperature: 97.2 F Blood Pressure: 151/64 Pulse: 61 Respirations: 18 Pulse Ox (%): 93 - Physical Exam General: Alert, Cooperative, Other (Patient appears to be at her baseline level. ) HEENT: Atraumatic Neck: Supple Respiratory: Clear to auscultation bilaterally, Normal air movement Cardiovascular: Normal pulses, Regular rate/rhythm Gastrointestinal: Normal bowel sounds, Soft and benign, Non-distended Neurological: Normal speech, Normal strength at 5/5 x4 extr, Normal tone, Normal affect - Studies Medications List Reviewed: Yes Assessment & Plan Discharge Plan: Other (Inpatient rehab) Plan to discharge in: 24 Hours Physician Review Additional Text: Impression: Mechanical fall leading to left superior and and inferior rami fractures Acute encephalopathy likely toxic related to UTI versus underlying dementia versus underlying psychiatric illness History of CVA suspect underlying dementia Hypertension History of pacemaker Acute renal injury likely from dehydration Anemia likely of chronic disease Plan: Mechanical fall leading to left superior and and inferior rami fractures: Case discussed with orthopedics yesterday. No surgical intervention required. Continue physical therapy and occupational therapy. Case also discuss with Neurology. Patient has been to inpatient rehab in the past. Patient will be a good candidate for inpatient rehab as recommended by Neurology. Referral for inpatient rehab made. If not approve family prefers skilled placement then transition to long-term care. Continue with fall and aspiration precautions. Will discuss further with case management. Acute encephalopathy likely toxic related to UTI versus underlying dementia versus underlying psychiatric illness: CT scan negative. Suspect UTI. Urine culture pending. Continue IV antibiotic therapy. Patient on DVT prophylaxis. Neurology and Psychiatry has evaluated patient. Patient likely with underlying psychiatric illness with delusional disorder. Reviewed psychiatric recommendations. Neurology also suspects underlying dementia. Continue with recommendations. History of CVA suspect underlying dementia: Will continue with aspirin, metoprolol, and statin medication. Will continue with folic acid and thiamine. Neurology consulted. Will maintain blood pressure control. Not able to get MRI due to history of pacemaker. Hypertension: Will start metoprolol. Will adjust accordingly. History of pacemaker: Will monitor on telemetry. Acute renal injury likely from dehydration: Electrolyte protocol in place. Anemia likely of chronic disease: Will check iron and B12 studies. Time Spent Managing Pts Care (In Minutes): 55
[2019-11-15] MEDS: ENOXAPARIN 40 MG/0.4 ML SQ SCH (17:02)
[2019-11-15] MEDS: ATORVASTATIN 40 MG TAB PO SCH (19:59)
[2019-11-16] MEDS: METOPROLOL TAR 25 MG TAB PO SCH ×2 (05:24→17:11)
[2019-11-16 05:43] LABS: Absolute Lymphocytes (CBC) 3.3 K/uL (0.7-4.9); Basophils % 0.7 % (0-1.3); Lymphocytes % 40.3 % (15.3-44.8); MPV 7.5 fL (7.6-11.3); RBC Red Blood Cell Count 3.75 M/uL (3.86-4.86)
[2019-11-16 05:58] LABS: BUN Blood Urea Nitrogen 15 mg/dL (7-18); Bicarbonate 25 mmol/L (21-32); Glucose Level 104 mg/dL (74-106); Magnesium 2.1 mg/dL (1.8-2.4); Potassium 3.5 mmol/L (3.5-5.1); Sodium Level 145 mmol/L (136-145)
[2019-11-16] MEDS: CEFTRIAXONE/SWI 1gm 1 GM/10 ML SYR IV SCH ×2 (08:02→19:47)
[2019-11-16] MEDS: FOLIC ACID 1 MG TABLET PO SCH (08:02)
[2019-11-16] MEDS: ASPIRIN EC 81 MG TAB PO SCH (08:03)
[2019-11-16] MEDS: THIAMINE HCL 100 MG TABLET PO SCH (08:03)
--- NOTE | 2019-11-16 11:09 | P.PN ---
Subjective Date of Service: 11/16/19 Primary Care Provider: None Chief Complaint: s/p fall with minimally displaced fractures of the superior & inferior pu Subjective: Improving, Doing well Physical Examination - Vital Signs Temperature: 97.7 F Blood Pressure: 170/74 Pulse: 63 Respirations: 18 Pulse Ox (%): 96 - Physical Exam General: Alert, In no apparent distress, Cooperative HEENT: Atraumatic Neck: Supple Respiratory: Clear to auscultation bilaterally, Normal air movement Cardiovascular: Normal pulses, Regular rate/rhythm Gastrointestinal: Normal bowel sounds, Soft and benign, Non-distended Neurological: Normal speech, Normal strength at 5/5 x4 extr, Normal tone, Normal affect - Studies Microbiology Data (last 24 hrs): 11/13/19 20:15 Clean Catch Urine [place] Count - Final >100,000 CFU/ML. 11/13/19 20:15 Clean Catch Urine - Final MIXED [place]. Medications List Reviewed: Yes Assessment & Plan Discharge Plan: Other (Skilled placement versus inpatient rehab then long-term care) Plan to discharge in: 48 Hours Physician Review Additional Text: Impression: Mechanical fall leading to left superior and and inferior rami fractures Acute encephalopathy likely toxic related to UTI versus underlying dementia versus underlying psychiatric illness History of CVA suspect underlying dementia Hypertension History of pacemaker Acute renal injury likely from dehydration Anemia likely of chronic disease Plan: Mechanical fall leading to left superior and and inferior rami fractures: Continue with physical therapy and occupational therapy. Spoke with Neurology yesterday. Neurology recommends inpatient rehab since the patient has been in inpatient rehab in the past. Will check to see if she qualifies otherwise family desires scale placement and eventually to long-term placement. Will continue monitor closely. DVT prophylaxis in place. Fall precautions in place. Acute encephalopathy likely toxic related to UTI versus underlying dementia versus underlying psychiatric illness: CT scan negative. Suspect UTI. Urine culture pending. Continue IV antibiotic therapy. Patient on DVT prophylaxis. Neurology and Psychiatry has evaluated patient. Patient likely with underlying psychiatric illness with delusional disorder. Reviewed psychiatric recommendations. Neurology also suspects underlying dementia. Continue with recommendations. History of CVA suspect underlying dementia: Will continue with aspirin, metoprolol, and statin medication. Will continue with folic acid and thiamine. Neurology consulted. Will maintain blood pressure control. Not able to get MRI due to history of pacemaker. Hypertension: Continue with metoprolol. Will monitor and adjust accordingly. History of pacemaker: Will monitor on telemetry. Acute renal injury likely from dehydration: Electrolyte protocol in place. Anemia likely of chronic disease: Overall stable. Will monitor closely. Time Spent Managing Pts Care (In Minutes): 55
[2019-11-16] MEDS ORDERED: TRAMADOL HCL 50 MG TAB PO PRN (11:10)
[2019-11-16] MEDS ORDERED: DOCUSATE NA 100 MG CAP PO PRN (13:54)
[2019-11-16] MEDS ORDERED: LACTULOSE 20 GM/30 ML UCUP PO PRN (13:54)
[2019-11-16] MEDS: lisinopriL 5 MG TAB PO SCH (14:56)
[2019-11-16] MEDS: ENOXAPARIN 40 MG/0.4 ML SQ SCH (17:12)
[2019-11-16] MEDS: ACETAMINOPHEN 500 MG TAB PO PRN (19:46)
[2019-11-16] MEDS: ATORVASTATIN 40 MG TAB PO SCH (19:47)
[2019-11-17] MEDS: METOPROLOL TAR 25 MG TAB PO SCH ×2 (05:16→16:58)
--- NOTE | 2019-11-17 08:44 | P.PN ---
Subjective Date of Service: 11/17/19 Primary Care Provider: None Chief Complaint: s/p fall with minimally displaced fractures of the superior & inferior pu Subjective: Improving, Doing well Physical Examination - Vital Signs Temperature: 96.8 F Blood Pressure: 138/64 Pulse: 65 Respirations: 20 Pulse Ox (%): 95 - Physical Exam General: Alert, In no apparent distress, Cooperative HEENT: Atraumatic Neck: Supple Respiratory: Clear to auscultation bilaterally, Normal air movement Cardiovascular: Normal pulses, Regular rate/rhythm Gastrointestinal: Normal bowel sounds, Soft and benign, Non-distended Musculoskeletal: Other (Mild swelling to the left knee) Neurological: Normal speech, Normal strength at 5/5 x4 extr, Normal tone - Studies Microbiology Data (last 24 hrs): 11/13/19 20:15 Clean Catch Urine [place] Count - Final >100,000 CFU/ML. 11/13/19 20:15 Clean Catch Urine - Final MIXED [place]. Medications List Reviewed: Yes Assessment & Plan Discharge Plan: Other (Inpatient rehab versus skilled placement) Plan to discharge in: 24 Hours Physician Review Additional Text: Impression: Mechanical fall leading to left superior and and inferior rami fractures Acute encephalopathy likely related to underlying dementia versus underlying psychiatric illness History of CVA suspect underlying dementia Hypertension History of pacemaker Acute renal injury likely from dehydration Anemia likely of chronic disease Plan: Mechanical fall leading to left superior and and inferior rami fractures: Continue with physical therapy and occupational therapy. Spoke with Neurology on Monday. Neurology recommends inpatient rehab since the patient has been in inpatient rehab in the past. Will check to see if she qualifies otherwise family desires fdc placement and eventually to long-term placement. Will continue monitor closely. DVT prophylaxis in place. Fall precautions in place. Continue work with physical therapy to determine placement. Will discuss with social services designee tomorrow. Acute encephalopathy likely related to underlying dementia versus underlying psychiatric illness: CT scan negative. Urine culture negative only shows mixed [place]. Will discontinue IV antibiotic therapy. Pro calcitonin normal. Patient on DVT prophylaxis. Neurology and Psychiatry has evaluated patient. Patient likely with underlying psychiatric illness with delusional disorder. Patient appears to be at her baseline mentation. No significant altered mental status changes noted. Reviewed psychiatric recommendations. Neurology also suspects underlying dementia. Continue with recommendations. History of CVA suspect underlying dementia: Will continue with aspirin, metoprolol, and statin medication. Will continue with folic acid and thiamine. Neurology consulted. Will maintain blood pressure control. Not able to get MRI due to history of pacemaker. Hypertension: Continue with metoprolol. Will monitor and adjust accordingly. History of pacemaker: Will monitor on telemetry. Acute renal injury likely from dehydration: Electrolyte protocol in place. Anemia likely of chronic disease: Overall stable. Will monitor closely. Time Spent Managing Pts Care (In Minutes): 55
[2019-11-17] MEDS: DOCUSATE NA 100 MG CAP PO SCH (09:00)
[2019-11-17] MEDS: THIAMINE HCL 100 MG TABLET PO SCH (09:09)
[2019-11-17] MEDS: ASPIRIN EC 81 MG TAB PO SCH (09:09)
[2019-11-17] MEDS: lisinopriL 5 MG TAB PO SCH (09:10)
[2019-11-17] MEDS: FOLIC ACID 1 MG TABLET PO SCH (09:11)
[2019-11-17] MEDS: ACETAMINOPHEN 500 MG TAB PO PRN (15:30)
[2019-11-17] MEDS: ENOXAPARIN 40 MG/0.4 ML SQ SCH (16:58)
[2019-11-17] MEDS: ATORVASTATIN 40 MG TAB PO SCH (20:28)
[2019-11-18] MEDS: METOPROLOL TAR 25 MG TAB PO SCH ×2 (05:50→16:48)
[2019-11-18] MEDS: ASPIRIN EC 81 MG TAB PO SCH (07:49)
[2019-11-18] MEDS: THIAMINE HCL 100 MG TABLET PO SCH (07:49)
[2019-11-18] MEDS: FOLIC ACID 1 MG TABLET PO SCH (07:50)
[2019-11-18] MEDS: lisinopriL 5 MG TAB PO SCH (07:50)
[2019-11-18] MEDS: DOCUSATE NA 100 MG CAP PO SCH (07:51)
[2019-11-18] MEDS ORDERED: PNEUMOCOCCAL VACCINE 0.5 ML IMVAC ONE (08:00)
--- NOTE | 2019-11-18 09:23 | P.PN ---
Subjective Date of Service: 11/18/19 Primary Care Provider: None Chief Complaint: s/p fall with minimally displaced fractures of the superior & inferior pu Subjective: Doing well Physical Examination - Vital Signs Temperature: 97.5 F Blood Pressure: 146/67 Pulse: 64 Respirations: 14 Pulse Ox (%): 95 - Physical Exam General: Alert, In no apparent distress, Cooperative HEENT: Atraumatic Neck: Supple Respiratory: Clear to auscultation bilaterally, Normal air movement Cardiovascular: Normal pulses, Regular rate/rhythm Gastrointestinal: Normal bowel sounds, Soft and benign, Non-distended Neurological: Normal speech, Normal strength at 5/5 x4 extr, Normal tone, Normal affect (Patient appears appropriate.) - Studies Medications List Reviewed: Yes Assessment & Plan Discharge Plan: Other (Inpatient rehab verses skilled placement) Plan to discharge in: 24 Hours Physician Review Additional Text: Impression: Mechanical fall leading to left superior and and inferior rami fractures Acute encephalopathy likely related to underlying dementia versus underlying psychiatric illness History of CVA suspect underlying dementia Hypertension History of pacemaker Acute renal injury likely from dehydration Anemia likely of chronic disease Plan: Mechanical fall leading to left superior and and inferior rami fractures: Patient continues to work with physical therapy and occupational therapy. Patient showing improvement. Neurology recommends inpatient rehab versus skilled placement. Await to see if she gets approved for inpatient rehab otherwise family will pursue skilled placement. Family already looking in the local area for long-term placement. Fall precautions in place. Will discuss with social secretary. Anticipate discharge to inpatient rehab versus skilled placement in the next 24-48 hr. I will turn the service over to the hospitalist team tomorrow. I will go over the plan of care with him. Acute encephalopathy likely related to underlying dementia versus underlying psychiatric illness: CT scan negative. Urine culture negative only shows mixed [place]. No evidence of infection. Antibiotics have been discontinued. Pro calcitonin normal upon admission. Patient on DVT prophylaxis. Neurology and Psychiatry has evaluated patient. Patient likely with underlying psychiatric illness with delusional disorder. Patient appears to be at her baseline mentation. No significant altered mental status changes noted. Reviewed psychiatric recommendations. No need for medication at this time. Will consider psychiatric recommendations on medications if with more delusions. Neurology also suspects underlying dementia. Continue with current recommendations. History of CVA suspect underlying dementia: Will continue with aspirin, metoprolol, and statin medication. Will also continue with folic acid and thiamine. Neurology consulted. Will maintain blood pressure control. Not able to get MRI due to history of pacemaker. Hypertension: Continue with metoprolol. Will monitor and adjust accordingly. History of pacemaker: Will monitor on telemetry. Acute renal injury likely from dehydration: Electrolyte protocol in place. Anemia likely of chronic disease: Overall stable. Will monitor closely. Time Spent Managing Pts Care (In Minutes): 55
[2019-11-18] MEDS: ENOXAPARIN 40 MG/0.4 ML SQ SCH (16:50)
[2019-11-18] MEDS: ATORVASTATIN 40 MG TAB PO SCH (19:45)
[2019-11-19] MEDS: METOPROLOL TAR 25 MG TAB PO SCH ×2 (05:47→17:13)
[2019-11-19] MEDS: THIAMINE HCL 100 MG TABLET PO SCH (08:25)
[2019-11-19] MEDS: FOLIC ACID 1 MG TABLET PO SCH (08:25)
[2019-11-19] MEDS: ACETAMINOPHEN 500 MG TAB PO PRN ×2 (08:26→21:35)
[2019-11-19] MEDS: lisinopriL 5 MG TAB PO SCH (08:26)
[2019-11-19] MEDS: ASPIRIN EC 81 MG TAB PO SCH (08:26)
[2019-11-19] MEDS: DOCUSATE NA 100 MG CAP PO SCH (08:27)
--- NOTE | 2019-11-19 11:22 | P.PN ---
Subjective Date of Service: 11/19/19 Primary Care Provider: None Chief Complaint: s/p fall with minimally displaced fractures of the superior & inferior pu Subjective: Working w/ PT Patient seen and examined chart reviewed and case discussed with RN. Patient does complain of some pain. Since she is working with physical therapy slowly. Review of Systems 10-point ROS is otherwise unremarkable Physical Examination - Vital Signs Temperature: 97.6 F Blood Pressure: 134/63 Pulse: 67 Respirations: 16 Pulse Ox (%): 97 - Physical Exam General: Alert, Oriented x3, Mild distress, Other (Elderly female in some mild pain) HEENT: Atraumatic, PERRLA, EOMI Neck: Supple, JVD not distended Respiratory: Clear to auscultation bilaterally, Normal air movement Cardiovascular: No edema, Normal pulses, Regular rate/rhythm, Normal S1 S2 Gastrointestinal: Normal bowel sounds, Soft and benign, Non-distended, No tenderness Musculoskeletal: No erythema, No tenderness Integumentary: No rashes, No erythema Neurological: Normal speech, Normal tone, Cranial nerves 3-12 intact, Normal affect Lymphatics: No axilla or inguinal lymphadenopathy - Studies Laboratory Tests 11/13/19 11/13/19 11/13/19 19:53 19:53 19:53 WBC 11.8 H RBC 4.05 Hgb 12.2 Hct 37.1 MCV 91.6 MCH 30.2 MCHC 33.0 RDW 12.9 Plt Count 293 MPV 7.2 L Neutrophils % 74.3 H Lymphocytes % 19.3 Monocytes % 6.2 Eosinophils % 0.1 Basophils % 0.1 Absolute Neutrophils 8.7 H Absolute Lymphocytes 2.3 Absolute Monocytes 0.7 Absolute Eosinophils 0.0 Absolute Basophils 0.0 PT 13.3 H INR 1.13 Sodium 145 Potassium 3.5 Chloride 111 H Carbon Dioxide 25 BUN 29 H Creatinine 1.26 Estimated GFR 41 L Glucose 147 H Calcium 9.0 Magnesium 2.0 Total Bilirubin 0.3 Direct Bilirubin < 0.1 AST 26 ALT 21 Alkaline Phosphatase 138 H Rapid Troponin I < 0.02 NT-Pro-B Natriuret Pep 606 H Serum Total Protein 7.9 Albumin 3.9 Globulin 4.0 H Albumin/Globulin Ratio 1.0 L Urine pH Ur Specific [place] Glucose (UA)(Auto) Urine Ketones Urine Blood Urine Nitrite Ur Leukocyte Esterase Urine RBC Urine WBC Ur Squamous Epith Cells Urine Bacteria Urine Culture Reflexed Urine Total Protein 11/13/19 11/13/19 20:15 20:20 WBC RBC Hgb Hct MCV MCH MCHC RDW Plt Count MPV Neutrophils % Lymphocytes % Monocytes % Eosinophils % Basophils % Absolute Neutrophils Absolute Lymphocytes Absolute Monocytes Absolute Eosinophils Absolute Basophils PT INR Sodium Potassium Chloride Carbon Dioxide BUN Creatinine Estimated GFR Glucose Calcium Magnesium Total Bilirubin Direct Bilirubin AST ALT Alkaline Phosphatase Rapid Troponin I NT-Pro-B Natriuret Pep Serum Total Protein Albumin Globulin Albumin/Globulin Ratio Urine pH 6.0 Ur Specific [place] 1.020 Glucose (UA)(Auto) Negative Urine Ketones Trace Urine Blood 3+ H Urine Nitrite Negative Ur Leukocyte Esterase 1+ H Urine RBC 20-50 H Urine WBC >50 H Ur Squamous Epith Cells 5-10 H Urine Bacteria 20-50 H Urine Culture Reflexed Reflexed Urine Total Protein 2+ H Microbiology Data (last 24 hrs): Blood cultures no growth to date. Urine culture mixed [place] Medications List Reviewed: Yes Assessment And Plan Discharge Plan: Other (SNF) - Code Status/Comfort Care Code Status Assessed: Yes Physician Review Additional Text: Impression: Mechanical fall leading to left superior and and inferior rami fractures Acute encephalopathy likely related to underlying dementia versus underlying psychiatric illness History of CVA suspect underlying dementia Hypertension History of pacemaker Acute renal injury likely from dehydration Anemia likely of chronic disease Plan: Mechanical fall leading to left superior and and inferior rami fractures: Patient continues to work with physical therapy and occupational therapy. Patient showing improvement. Neurology recommends inpatient rehab versus skilled placement. Patient was denied by inpatient rehab. Will pursue skilled placement. Family already looking in the local area for long-term placement. Fall precautions in place. Will discuss with social media assistant. Anticipate discharge to skilled placement once accepted. Appreciate orthopedic input. Acute encephalopathy likely related to underlying dementia versus underlying psychiatric illness: CT scan negative. Urine culture negative only shows mixed [place]. No evidence of infection. Antibiotics have been discontinued. Pro calcitonin normal upon admission. Patient on DVT prophylaxis. Neurology and Psychiatry has evaluated patient. Patient likely with underlying psychiatric illness with delusional disorder. Patient appears to be at her baseline mentation. No significant altered mental status changes noted. Reviewed psychiatric recommendations. No need for medication at this time. Will consider psychiatric recommendations on medications if with more delusions. Neurology also suspects underlying dementia. Continue with current recommendations. History of CVA suspect underlying dementia: Will continue with aspirin, metoprolol, and statin medication. Will also continue with folic acid and thiamine. Neurology consulted. Will maintain blood pressure control. Not able to get MRI due to history of pacemaker. Hypertension: Continue with metoprolol. Will monitor and adjust accordingly. History of pacemaker: Will monitor on telemetry. Acute renal injury likely from dehydration: Electrolyte protocol in place. Creatinine now normalized. Avoid NSAIDs Anemia likely of chronic disease: Overall stable. Will monitor closely. Transfuse for hemoglobin less than 7.
[2019-11-19] MEDS: ENOXAPARIN 40 MG/0.4 ML SQ SCH (17:13)
[2019-11-19] MEDS: ATORVASTATIN 40 MG TAB PO SCH (20:06)
[2019-11-19] MEDS ORDERED: Levofloxacin500mg IV 500 MG/100 ML BAG IV SCH (22:00)
[2019-11-20] MEDS: ACETAMINOPHEN 500 MG TAB PO PRN (05:41)
[2019-11-20] MEDS: METOPROLOL TAR 25 MG TAB PO SCH ×2 (05:42→17:57)
[2019-11-20 05:46] LABS: Urine Appearance CLOUDY; Urine Bilirubin NEGATIVE (NEG); Urine Blood 1+ (NEG); Urine Color YELLOW; Urine Glucose NEGATIVE (NEG); Urine Protein NEGATIVE (NEG); Urine Urobilinogen 0.2 mg/dL (0.2-1.0); Urine pH 5.5 (5.0-7.0)
[2019-11-20 06:37] LABS: Potassium 3.8 mmol/L (3.5-5.1)
[2019-11-20 06:39] LABS: Absolute Lymphocytes (CBC) 1.7 K/uL (0.7-4.9); Basophils % 0.3 % (0-1.3); Hematocrit 33.5 % (36.0-45.0); Lymphocytes % 7.6 % (15.3-44.8); MPV 7.8 fL (7.6-11.3); RBC Red Blood Cell Count 3.71 M/uL (3.86-4.86)
[2019-11-20 06:51] LABS: Urine Bacteria 20-50 /HPF (<20); Urine Culture Reflex Order REFLEXED; Urine Mucus SLIGHT /HPF (NONE SEEN)
[2019-11-20 08:05] LABS: Blood Morphology Comment NOT SEEN (NOT SEEN); Platelet Estimate ADEQ
[2019-11-20] MEDS: THIAMINE HCL 100 MG TABLET PO SCH (08:47)
[2019-11-20] MEDS: ASPIRIN EC 81 MG TAB PO SCH (08:47)
[2019-11-20] MEDS: FOLIC ACID 1 MG TABLET PO SCH (08:47)
[2019-11-20] MEDS: DOCUSATE NA 100 MG CAP PO SCH (08:48)
[2019-11-20] MEDS: lisinopriL 5 MG TAB PO SCH (08:48)
[2019-11-20] MEDS: HYDROCODONE/APAP 7.5/325 MG TAB PO PRN ×2 (09:34→22:00)
[2019-11-20] MEDS: NA CHLORIDE 0.9% 1,000 ML IV SCH ×3 (10:00→19:57)
[2019-11-20] MEDS: CEFTRIAXONE/SWI 1gm 1 GM/10 ML SYR IV SCH (10:00)
--- NOTE | 2019-11-20 13:55 | P.PN ---
Subjective Date of Service: 11/20/19 Primary Care Provider: None Chief Complaint: s/p fall with minimally displaced fractures of the superior & inferior pu Patient seen and examined chart reviewed and case discussed with RN. Patient asking for something stronger for pain. Flagging for sepsis today due to elevated white blood cell count fever Review of Systems 10-point ROS is otherwise unremarkable Musculoskeletal: As per HPI Physical Examination - Vital Signs Temperature: 97.4 F Blood Pressure: 107/55 Pulse: 78 Respirations: 20 Pulse Ox (%): 95 - Physical Exam General: Alert, Oriented x3, Mild distress, Other (Elderly female ill-appearing) HEENT: Atraumatic, PERRLA, EOMI Neck: Supple Respiratory: Clear to auscultation bilaterally, Normal air movement Cardiovascular: No edema, Normal pulses, Regular rate/rhythm, Normal S1 S2 Gastrointestinal: Normal bowel sounds, Soft and benign, Non-distended, No tenderness Musculoskeletal: No tenderness Integumentary: No rashes, No erythema Neurological: Normal speech, Normal tone, Cranial nerves 3-12 intact, Normal affect - Studies Laboratory Tests 11/13/19 11/13/19 11/13/19 19:53 19:53 19:53 WBC 11.8 H RBC 4.05 Hgb 12.2 Hct 37.1 MCV 91.6 MCH 30.2 MCHC 33.0 RDW 12.9 Plt Count 293 MPV 7.2 L Neutrophils % 74.3 H Lymphocytes % 19.3 Monocytes % 6.2 Eosinophils % 0.1 Basophils % 0.1 Absolute Neutrophils 8.7 H Absolute Lymphocytes 2.3 Absolute Monocytes 0.7 Absolute Eosinophils 0.0 Absolute Basophils 0.0 PT 13.3 H INR 1.13 Sodium 145 Potassium 3.5 Chloride 111 H Carbon Dioxide 25 BUN 29 H Creatinine 1.26 Estimated GFR 41 L Glucose 147 H Calcium 9.0 Magnesium 2.0 Total Bilirubin 0.3 Direct Bilirubin < 0.1 AST 26 ALT 21 Alkaline Phosphatase 138 H Rapid Troponin I < 0.02 NT-Pro-B Natriuret Pep 606 H Serum Total Protein 7.9 Albumin 3.9 Globulin 4.0 H Albumin/Globulin Ratio 1.0 L Urine pH Ur Specific [place] Glucose (UA)(Auto) Urine Ketones Urine Blood Urine Nitrite Ur Leukocyte Esterase Urine RBC Urine WBC Ur Squamous Epith Cells Urine Bacteria Urine Culture Reflexed Urine Total Protein 11/13/19 11/13/19 20:15 20:20 WBC RBC Hgb Hct MCV MCH MCHC RDW Plt Count MPV Neutrophils % Lymphocytes % Monocytes % Eosinophils % Basophils % Absolute Neutrophils Absolute Lymphocytes Absolute Monocytes Absolute Eosinophils Absolute Basophils PT INR Sodium Potassium Chloride Carbon Dioxide BUN Creatinine Estimated GFR Glucose Calcium Magnesium Total Bilirubin Direct Bilirubin AST ALT Alkaline Phosphatase Rapid Troponin I NT-Pro-B Natriuret Pep Serum Total Protein Albumin Globulin Albumin/Globulin Ratio Urine pH 6.0 Ur Specific [place] 1.020 Glucose (UA)(Auto) Negative Urine Ketones Trace Urine Blood 3+ H Urine Nitrite Negative Ur Leukocyte Esterase 1+ H Urine RBC 20-50 H Urine WBC >50 H Ur Squamous Epith Cells 5-10 H Urine Bacteria 20-50 H Urine Culture Reflexed Reflexed Urine Total Protein 2+ H Medications List Reviewed: Yes Assessment And Plan Physician Review Additional Text: Impression: Mechanical fall leading to left superior and and inferior rami fractures Acute encephalopathy likely related to underlying dementia versus underlying psychiatric illness History of CVA suspect underlying dementia Hypertension History of pacemaker Acute renal injury likely from dehydration Anemia likely of chronic disease Plan: Fever. Likely secondary to UTI blood cultures have been redrawn. Possibly developing sepsis. Consult ID. [place] [id number] elevated lactate level. Will obtain chest x-ray as patient has been largely bed bound and working very minimally with physical therapy she may be developing pneumonia from atelectasis Mechanical fall leading to left superior and and inferior rami fractures: Patient continues to work with physical therapy and occupational therapy. Patient showing improvement. Neurology recommends inpatient rehab versus skilled placement. Patient was denied by inpatient rehab. Will pursue skilled placement. Family already looking in the local area for long-term placement. Fall precautions in place. Will discuss with social media assistant. Anticipate discharge to skilled placement once accepted and medically stable. Appreciate orthopedic input. Acute cystitis without hematuria. Will start on IV antibiotics. Switched from Levaquin to Rocephin. Follow up on urine cultures Acute encephalopathy likely related to underlying dementia versus underlying psychiatric illness: CT scan negative. Patient on DVT prophylaxis. Neurology and Psychiatry has evaluated patient. Patient likely with underlying psychiatric illness with delusional disorder. Patient appears to be at her baseline mentation. No significant altered mental status changes noted. Reviewed psychiatric recommendations. Will consider psychiatric recommendations on medications if with more delusions. Neurology also suspects underlying dementia. Continue with current recommendations. History of CVA suspect underlying dementia: Will continue with aspirin, metoprolol, and statin medication. Will also continue with folic acid and thiamine. Neurology consulted. Will maintain blood pressure control. Not able to get MRI due to history of pacemaker. Hypertension: Continue with metoprolol. Will monitor and adjust accordingly. History of pacemaker: Will monitor on telemetry. Acute renal injury likely from dehydration: Electrolyte protocol in place. Creatinine now normalized. Avoid NSAIDs Anemia likely of chronic disease: Overall stable. Will monitor closely. Transfuse for hemoglobin less than 7. Continue workup for fever and treat UTI. Once afebrile for 24 hr and white blood cell count is improving and lactate has improved consider Dc to shelter facility
--- NOTE | 2019-11-20 15:42 | RAD REPORT ---
EXAM DESCRIPTION: Chrissie Pa And Lat (2 Views)11/20/2019 3:33 pm CLINICAL HISTORY: Cough COMPARISON: 11/13/2019 FINDINGS: The lungs appear clear of acute infiltrate. The heart is normal size. The main pulmonary is prominent which may indicate pulmonary arterial hypertension IMPRESSION: No acute abnormalities displayed
[2019-11-20] MEDS: ENOXAPARIN 40 MG/0.4 ML SQ SCH (17:43)
[2019-11-20] MEDS: ATORVASTATIN 40 MG TAB PO SCH (19:56)
[2019-11-20 21:02] VITALS: O2SAT 96
[2019-11-21 04:15] LABS: Absolute Lymphocytes (CBC) 1.6 K/uL (0.7-4.9); Basophils % 0.3 % (0-1.3); Hematocrit 29.7 % (36.0-45.0); Lymphocytes % 14.2 % (15.3-44.8); RBC Red Blood Cell Count 3.25 M/uL (3.86-4.86)
[2019-11-21 04:38] LABS: Bilirubin Total 0.3 mg/dL (0.2-1.0); Potassium 3.3 mmol/L (3.5-5.1); Protein, Total 5.6 g/dL (6.4-8.2)
[2019-11-21] MEDS: METOPROLOL TAR 25 MG TAB PO SCH (05:02)
[2019-11-21 05:23] VITALS: TEMP 98.6
[2019-11-21] MEDS: NA CHLORIDE 0.9% 1,000 ML IV SCH ×2 (05:23→08:08)
[2019-11-21] MEDS: THIAMINE HCL 100 MG TABLET PO SCH (08:09)
[2019-11-21] MEDS: FOLIC ACID 1 MG TABLET PO SCH (08:09)
[2019-11-21] MEDS: ASPIRIN EC 81 MG TAB PO SCH (08:09)
[2019-11-21] MEDS: CEFTRIAXONE/SWI 1gm 1 GM/10 ML SYR IV SCH (08:09)
[2019-11-21] MEDS: lisinopriL 5 MG TAB PO SCH (08:09)
[2019-11-21 08:11] VITALS: BP 123/51
[2019-11-21] MEDS: DOCUSATE NA 100 MG CAP PO SCH (08:18)
[2019-11-21] MEDS ORDERED: POTASSIUM CL SA 10 MEQ TAB PO ONE (08:31)
--- NOTE | 2019-11-21 11:08 | P.DS ---
Admission Date: 11/14/19 Discharge Date: 11/21/19 Primary Care Provider: None Disposition: TRANSFER TO SNF - REHAB Discharge Condition: FAIR Reason for Admission: s/p fall with minimally displaced fractures of the superior & inferior pu Consultations: orthopedic surgeon Dr. Velazco neurologist Dr. Briceno psychiatrist Dr. Magana Procedures: None Brief History of Present Illness: From H and P Patient is a 79-year-old female came to the hospital after being found confused. Patient was apparently at home and calling out to the neighbors for help. Her family brought her into the ER for further evaluation. In the ER it was noted she has some bruising to her hip. X-rays were performed which showed she has suffered an inferior and superior ramus fracture. She was also found having urinary tract infection. She will be admitted to the hospital for further workup. Will get an MRI of the brain to rule out a CVA. She is confused and she is not answering many of my questions appropriately. She will be admitted for further workup. Hospital Course: Patient is a 79-year-old female with past medical history of hypertension osteoarthritis who comes in with a mechanical fall with rami fractures. Orthopedic surgery was consulted. No surgical intervention was recommended by Dr. Velazco. Patient did require IV pain medications and then was later switched to oral pain medications. Patient work with physical therapy and was referred to inpatient rehab. Patient however was denied by inpatient rehab and was then [facility]. Patient also had acute encephalopathy which was likely related to underlying dementia or delirium. Patient was seen by neurology and psychiatry. Patient has history of CVA in MRI was unable to be done due to history of a pacemaker. Patient's mental status improved and returned to baseline. head CT scan was negative. Carotid artery ultrasound showed plaquing but no hemodynamically significant stenosis. Echocardiogram showed EF of 58%. Patient did develop a fever and elevated white blood cell count UA was repeated and was positive. Repeat urine cultures were obtained and blood cultures. 1st set of blood cultures remained negative. Patient's white blood cell count trended down in her Lactaid normalize. She was afebrile. She was started on IV antibiotics for the UTI. And responded well. She will finish up a course of oral antibiotics for the UTI. Chest x-ray was clear. Patient was not accepted to [facility] facility and was discharged in a stable condition Mechanical fall leading to left superior and and inferior rami fractures Acute encephalopathy likely related to underlying dementia versus underlying psychiatric illness Acute cystitis without hematuria History of CVA suspect underlying dementia Essential Hypertension. Stable History of pacemaker Acute renal injury likely from dehydration resolved Anemia likely of chronic disease Vital Signs/Physical Exam: Temp Pulse Resp BP Pulse Ox 98.6 F 84 16 123/51 L 95 11/21/19 04:00 11/21/19 08:09 11/21/19 04:00 11/21/19 08:09 11/21/19 04:00 General: Alert, In no apparent distress, Oriented x3, Other (Elderly female) HEENT: Atraumatic, PERRLA, EOMI Neck: Supple, JVD not distended Respiratory: Clear to auscultation bilaterally, Normal air movement Cardiovascular: No edema, Normal pulses, Regular rate/rhythm, Normal S1 S2 Gastrointestinal: Normal bowel sounds, Soft and benign, Non-distended, No tenderness Musculoskeletal: No tenderness Integumentary: No rashes, No erythema Neurological: Normal speech, Normal tone, Cranial nerves 3-12 intact, Normal affect Laboratory Data at Discharge: WBC 11.5 K/uL (4.3-10.9) H D 11/21/19 03:46 Hgb 9.9 g/dL (12.0-15.0) L 11/21/19 03:46 Hct 29.7 % (36.0-45.0) L 11/21/19 03:46 Plt Count 242 K/uL (152-406) 11/21/19 03:46 PT 13.1 SECONDS (9.5-12.5) H 11/14/19 03:38 INR 1.11 11/14/19 03:38 APTT 31.5 SECONDS (24.3-36.9) 11/14/19 03:38 Sodium 141 mmol/L (136-145) 11/21/19 03:46 Potassium 3.3 mmol/L (3.5-5.1) L 11/21/19 03:46 BUN 19 mg/dL (7-18) H 11/21/19 03:46 Creatinine 0.79 mg/dL (0.55-1.3) 11/21/19 03:46 Glucose 96 mg/dL (74-106) 11/21/19 03:46 Magnesium 2.1 mg/dL (1.8-2.4) 11/16/19 05:13 Total Bilirubin 0.3 mg/dL (0.2-1.0) 11/21/19 03:46 AST 29 U/L (15-37) 11/21/19 03:46 ALT 24 U/L (12-78) 11/21/19 03:46 Alkaline Phosphatase 84 U/L (45-117) 11/21/19 03:46 Triglycerides 87 mg/dL (<150) 11/14/19 03:38 Cholesterol 193 mg/dL (<200) 11/14/19 03:38 HDL Cholesterol 54 mg/dL (40-60) 11/14/19 03:38 Cholesterol/HDL Ratio 3.57 11/14/19 03:38 Home Medications: Aspirin [Aspirin EC 81 MG] 81 mg PO DAILY 05/25/17 Atorvastatin Calcium [Lipitor] 40 mg PO BEDTIME #30 tab 11/21/19 Cefuroxime Axetil [Cefuroxime] 500 mg PO BID #10 tab 11/21/19 Cyanocobalamin (Vitamin B-12) [Vitamin B-12] 1,000 mcg PO DAILY #30 capsule Docusate [Colace Cap*] 100 mg PO DAILY #0 cap 11/21/19 Folic Acid 1 mg PO DAILY #30 tablet 11/21/19 Metoprolol Tartrate [Lopressor*] 25 mg PO BID 6AM 6PM #60 tab 11/21/19 Thiamine HCl [Vitamin B-1*] 100 mg PO DAILY #30 tablet 11/21/19 lisinopriL [Prinivil*] 5 mg PO DAILY #30 tab 11/21/19 New Medications: Atorvastatin Calcium [Lipitor] 40 mg PO BEDTIME #30 tab Cefuroxime Axetil [Cefuroxime] 500 mg PO BID #10 tab Cyanocobalamin (Vitamin B-12) [Vitamin B-12] 1,000 mcg PO DAILY #30 capsule Folic Acid 1 mg PO DAILY #30 tablet lisinopriL [Prinivil*] 5 mg PO DAILY #30 tab Metoprolol Tartrate [Lopressor*] 25 mg PO BID 6AM 6PM #60 tab Thiamine HCl [Vitamin B-1*] 100 mg PO DAILY #30 tablet Patient Discharge Instructions: Follow up with PCP 2-3 days. Follow up with orthopedic surgeon Dr. Velazco in 2 weeks. Follow up with neurologist Dr. Briceno in 2 weeks. Follow up with psychiatrist Dr. Magana in 2 weeks. Return to ER for worsening condition Diet: AHA Activity: Fall precautions Followup: Seth Briceno MD [ASSOCIATE-ACTIVE - CAN ADMIT] - (call to schedule appointment) Klaus Magana [ACTIVE - CAN ADMIT] - (call to schedule appointment) Lucio Velazco MD [ACTIVE - CAN ADMIT] - (call to schedule appointment)
== END 2019-11-21 09:48 | DRG 535 ==
LOC: ER 19:02 → 4TH 11-14 01:40
PROVIDERS: ADMIT Hospitalist; ATTEND Hospitalist
DX: S32.592A Other specified fracture of left pubis, initial encounter for closed fracture (principal); G92 Toxic encephalopathy; N17.9 Acute kidney failure, unspecified; N30.00 Acute cystitis without hematuria; W18.30XA Fall on same level, unspecified, initial encounter; Y92.009 Unspecified place in unspecified non-institutional (private) residence as the place of occurrence of the external cause; I10 Essential (primary) hypertension; Z95.0 Presence of cardiac pacemaker; F20.9 Schizophrenia, unspecified; F22 Delusional disorders; R41.0 Disorientation, unspecified; D64.9 Anemia, unspecified; E86.0 Dehydration; Z86.73 Personal history of transient ischemic attack (TIA), and cerebral infarction without residual deficits; Z96.651 Presence of right artificial knee joint; Z23 Encounter for immunization
CPT/HCPCS: 36415; 70450; 71045; 71046; 72170; 74176; 80048; 80053; 80061; 80076; 81001; 81003; 81015; 82607; 82728; 83540; 83605; 83735; 83880; 84145; 84439; 84443; 84466; 84484; 85025; 85610; 85730; 87040; 87086; 87088; 90471; 90670; 93005; 93306; 93880; 96361; 96365; 96366; 96375; 97110; 97116; 97161; 97165; 97530; 99285; J0696; J1650; J7030; J7040

== ENCOUNTER 2021-11-04 19:28 | Inpatient (IN) | payer OTHER ==
--- OUTSIDE RECORDS SUMMARY | 2021-11-04 19:31 | XMS REPORT | Continuity of Care Document ---
:1940 Author Organization [facility] t Address [address] [place] [address] Care Team Providers Name Role Phone SUZI WIGGINS Attending Clinician Unavailable SUZI WIGGINS Admitting Clinician Unavailable Problems This patient has no known problems. Allergies, Adverse Reactions, Alerts This patient has no known allergies or adverse reactions. Medications This patient has no known medications. Procedures This patient has no known procedures. Results Test Description Test Time Test Comments Results Result Comments Source BLOOD CULTURE 2017-05-27 00:00:00 Test Item Value Reference Range Interpretation Comme nts CULTURE (BEAKER) (test code = 1095) No growth in 5 days BLOOD [id number] 00:00:00 Test Item Value Reference Range Interpretation Comments CULTURE (BEAKER) (test No growth in 5 days code = 1095) BASIC METABOLIC [id number] 06:46:00 Test Item Value Reference Range Interpretation Comments SODIUM (BEAKER) 143 meq/L 136-145 (test code = 381) POTASSIUM (BEAKER) 4.2 meq/L 3.5-5.1 (test code = 379) CHLORIDE (BEAKER) 107 meq/L 98-107 (test code = 382) CO2 (BEAKER) (test 28 meq/L 22-29 code = 355) BLOOD UREA NITROGEN 20 mg/dL 7-21 (BEAKER) (test code = 354) CREATININE (BEAKER) 0.81 mg/dL 0.57-1.25 (test code = 358) GLUCOSE RANDOM 98 mg/dL 70-105 (BEAKER) (test code = 652) CALCIUM (BEAKER) 9.0 mg/dL 8.4-10.2 (test code = 697) EGFR (BEAKER) (test 69 mL/min/1.73 ESTIMA BLESSING GFR IS code = 1092) sq m NOT ACCURATE CREATININE CLEARANCE IN PREDICTING GLOMERULAR FILTRATION RATE . ESTIMATED GFR I S NOT APPLICABLE FOR DIALYSIS PATIEN TS. CBC W/PLT COUNT & AUTO [id number] 06:45:00 Test Item Value Reference Range Interpretation Comments WHITE BLOOD CELL COUNT (BEAKER) 9.2 K/ L 3.5-10.5 (test code = 775) RED BLOOD CELL COUNT (BEAKER) 2.82 M/ L 3.93-5.22 L (test code = 761) HEMOGLOBIN (BEAKER) (test code = 8.4 GM/DL 11.2-15.7 L 410) HEMATOCRIT (BEAKER) (test code = 27.8 % 34.1-44.9 L 411) MEAN CORPUSCULAR VOLUME (BEAKER) 98.6 fL 79.4-94.8 H (test code = 753) MEAN CORPUSCULAR HEMOGLOBIN 29.8 pg 25.6-32.2 (BEAKER) (test code = 751) MEAN CORPUSCULAR HEMOGLOBIN CONC 30.2 GM/DL 32.2-35.5 L (BEAKER) (test code = 752) RED CELL DISTRIBUTION WIDTH 17.5 % 11.7-14.4 H (BEAKER) (test code = 412) PLATELET COUNT (BEAKER) (test 490 K/CU MM 150-450 H code = 756) MEAN PLATELET VOLUME (BEAKER) 9.0 fL 9.4-12.3 L (test code = 754) NUCLEATED RED BLOOD CELLS 0 /100 WBC 0-0 (BEAKER) (test code = 413) NEUTROPHILS RELATIVE PERCENT 46 % (BEAKER) (test code = 429) LYMPHOCYTES RELATIVE PERCENT 40 % (BEAKER) (test code = 430) MONOCYTES RELATIVE PERCENT 8 % (BEAKER) (test code = 431) EOSINOPHILS RELATIVE PERCENT 4 % (BEAKER) (test code = 432) BASOPHILS RELATIVE PERCENT 1 % (BEAKER) (test code = 437) NEUTROPHILS ABSOLUTE COUNT 4.26 K/ L 1.56-6.13 (BEAKER) (test code = 670) LYMPHOCYTES ABSOLUTE COUNT 3.71 K/ L 1.18-3.74 (BEAKER) (test code = 414) MONOCYTES ABSOLUTE COUNT (BEAKER) 0.77 K/ L 0.24-0.36 H (test code = 415) EOSINOPHILS ABSOLUTE COUNT 0.35 K/ L 0.04-0.36 (BEAKER) (test code = 416) BASOPHILS ABSOLUTE COUNT (BEAKER) 0.07 K/ L 0.01-0.08 (test code = 417) IMMATURE GRANULOCYTES-RELATIVE 1 % 0-1 PERCENT (BEAKER) (test code = 2801) BASIC METABOLIC [id number] 04:54:00 Test Item Value Reference Range Interpretation Comments SODIUM (BEAKER) 140 meq/L 136-145 (test code = 381) POTASSIUM (BEAKER) 4.4 meq/L 3.5-5.1 (test code = 379) CHLORIDE (BEAKER) 107 meq/L 98-107 (test code = 382) CO2 (BEAKER) (test 23 meq/L 22-29 code = 355) BLOOD UREA NITROGEN 21 mg/dL 7-21 (BEAKER) (test code = 354) CREATININE (BEAKER) 0.80 mg/dL 0.57-1.25 (test code = 358) GLUCOSE RANDOM 114 mg/dL 70-105 H (BEAKER) (test code = 652) CALCIUM (BEAKER) 8.7 mg/dL 8.4-10.2 (test code = 697) EGFR (BEAKER) (test 70 mL/min/1.73 ESTIMA BLESSING GFR IS code = 1092) sq m NOT ACCURATE CREATININE CLEARANCE IN PREDICTING GLOMERULAR FILTRATION RATE . ESTIMATED GFR I S NOT APPLICABLE FOR DIALYSIS PATIEN TS. CBC W/PLT COUNT & AUTO [id number] 04:36:00 Test Item Value Reference Range Interpretation Comments WHITE BLOOD CELL COUNT (BEAKER) 9.9 K/ L 3.5-10.5 (test code = 775) RED BLOOD CELL COUNT (BEAKER) 2.80 M/ L 3.93-5.22 L (test code = 761) HEMOGLOBIN (BEAKER) (test code = 8.4 GM/DL 11.2-15.7 L 410) HEMATOCRIT (BEAKER) (test code = 26.6 % 34.1-44.9 L 411) MEAN CORPUSCULAR VOLUME (BEAKER) 95.0 fL 79.4-94.8 H (test code = 753) MEAN CORPUSCULAR HEMOGLOBIN 30.0 pg 25.6-32.2 (BEAKER) (test code = 751) MEAN CORPUSCULAR HEMOGLOBIN CONC 31.6 GM/DL 32.2-35.5 L (BEAKER) (test code = 752) RED CELL DISTRIBUTION WIDTH 17.6 % 11.7-14.4 H (BEAKER) (test code = 412) PLATELET COUNT (BEAKER) (test 460 K/CU MM 150-450 H code = 756) MEAN PLATELET VOLUME (BEAKER) 8.6 fL 9.4-12.3 L (test code = 754) NUCLEATED RED BLOOD CELLS 0 /100 WBC 0-0 (BEAKER) (test code = 413) NEUTROPHILS RELATIVE PERCENT 57 % (BEAKER) (test code = 429) LYMPHOCYTES RELATIVE PERCENT 33 % (BEAKER) (test code = 430) MONOCYTES RELATIVE PERCENT 7 % (BEAKER) (test code = 431) EOSINOPHILS RELATIVE PERCENT 2 % (BEAKER) (test code = 432) BASOPHILS RELATIVE PERCENT 1 % (BEAKER) (test code = 437) NEUTROPHILS ABSOLUTE COUNT 5.67 K/ L 1.56-6.13 (BEAKER) (test code = 670) LYMPHOCYTES ABSOLUTE COUNT 3.24 K/ L 1.18-3.74 (BEAKER) (test code = 414) MONOCYTES ABSOLUTE COUNT (BEAKER) 0.67 K/ L 0.24-0.36 H (test code = 415) EOSINOPHILS ABSOLUTE COUNT 0.21 K/ L 0.04-0.36 (BEAKER) (test code = 416) BASOPHILS ABSOLUTE COUNT (BEAKER) 0.05 K/ L 0.01-0.08 (test code = 417) IMMATURE GRANULOCYTES-RELATIVE 1 % 0-1 PERCENT (BEAKER) (test code = 2801) BASIC METABOLIC [id number] 05:29:00 Test Item Value Reference Range Interpretation Comments SODIUM (BEAKER) 141 meq/L 136-145 (test code = 381) POTASSIUM (BEAKER) 4.2 meq/L 3.5-5.1 (test code = 379) CHLORIDE (BEAKER) 109 meq/L 98-107 H (test code = 382) CO2 (BEAKER) (test 22 meq/L 22-29 code = 355) BLOOD UREA NITROGEN 22 mg/dL 7-21 H (BEAKER) (test code = 354) CREATININE (BEAKER) 0.82 mg/dL 0.57-1.25 (test code = 358) GLUCOSE RANDOM 105 mg/dL 70-105 (BEAKER) (test code = 652) CALCIUM (BEAKER) 8.5 mg/dL 8.4-10.2 (test code = 697) EGFR (BEAKER) (test 68 mL/min/1.73 ESTIMA BLESSING GFR IS code = 1092) sq m NOT ACCURATE CREATININE CLEARANCE IN PREDICTING GLOMERULAR FILTRATION RATE . ESTIMATED GFR I S NOT APPLICABLE FOR DIALYSIS PATIEN TS. CBC W/PLT COUNT & AUTO [id number] 05:28:00 Test Item Value Reference Range Interpretation Comments WHITE BLOOD CELL COUNT (BEAKER) 12.2 K/ L 3.5-10.5 H (test code = 775) RED BLOOD CELL COUNT (BEAKER) 2.67 M/ L 3.93-5.22 L (test code = 761) HEMOGLOBIN (BEAKER) (test code = 8.1 GM/DL 11.2-15.7 L 410) HEMATOCRIT (BEAKER) (test code = 25.4 % 34.1-44.9 L 411) MEAN CORPUSCULAR VOLUME (BEAKER) 95.1 fL 79.4-94.8 H (test code = 753) MEAN CORPUSCULAR HEMOGLOBIN 30.3 pg 25.6-32.2 (BEAKER) (test code = 751) MEAN CORPUSCULAR HEMOGLOBIN CONC 31.9 GM/DL 32.2-35.5 L (BEAKER) (test code = 752) RED CELL DISTRIBUTION WIDTH 18.4 % 11.7-14.4 H (BEAKER) (test code = 412) PLATELET COUNT (BEAKER) (test 475 K/CU MM 150-450 H code = 756) MEAN PLATELET VOLUME (BEAKER) 8.6 fL 9.4-12.3 L (test code = 754) NUCLEATED RED BLOOD CELLS 0 /100 WBC 0-0 (BEAKER) (test code = 413) NEUTROPHILS RELATIVE PERCENT 63 % (BEAKER) (test code = 429) LYMPHOCYTES RELATIVE PERCENT 27 % (BEAKER) (test code = 430) MONOCYTES RELATIVE PERCENT 6 % (BEAKER) (test code = 431) EOSINOPHILS RELATIVE PERCENT 2 % (BEAKER) (test code = 432) BASOPHILS RELATIVE PERCENT 1 % (BEAKER) (test code = 437) NEUTROPHILS ABSOLUTE COUNT 7.67 K/ L 1.56-6.13 H (BEAKER) (test code = 670) LYMPHOCYTES ABSOLUTE COUNT 3.29 K/ L 1.18-3.74 (BEAKER) (test code = 414) MONOCYTES ABSOLUTE COUNT (BEAKER) 0.75 K/ L 0.24-0.36 H (test code = 415) EOSINOPHILS ABSOLUTE COUNT 0.23 K/ L 0.04-0.36 (BEAKER) (test code = 416) BASOPHILS ABSOLUTE COUNT (BEAKER) 0.06 K/ L 0.01-0.08 (test code = 417) IMMATURE GRANULOCYTES-RELATIVE 1 % 0-1 PERCENT (BEAKER) (test code = 2801) VITAMIN B12 AND [id number] 07:22:00 Test Item Value Reference Range Interpretation Comments VITAMIN B12 (BEAKER) (test code = 448 pg/mL 213-816 774) FOLATE (BEAKER) (test code = 362) 16.4 ng/mL >=7.0 Effective 08/19/2014: Folate Reference Range ChangeNew: >=7.0 Previous: >=5.4CREATINE KINASE (CK), TOTAL AND [id number] 06:58:00 Test Item Value Reference Range Interpretation Comments CREATINE KINASE TOTAL (BEAKER) 380 U/L 29-200 H (test code = 380) CREATINE KINASE-MB (BEAKER) (test 3.0 ng/mL 0.0-6.6 code = 750) CREATINE KINASE-MB INDEX (BEAKER) 0.8 % (test code = 395) Effective 08/19/2014: CK-MB Reference Range ChangeNew: 0.0-6.6 Previous: 0.0-4.9CK-MB Reference Range:<6.7 Normal6.7-10.0 Borderline>10.0 AbnormalBASIC METABOLIC [id number] 06:41:00 Test Item Value Reference Range Interpretation Comments SODIUM (BEAKER) 140 meq/L 136-145 (test code = 381) POTASSIUM (BEAKER) 4.7 meq/L 3.5-5.1 Specimen slightly (test code = 379) hemolyzed CHLORIDE (BEAKER) 107 meq/L 98-107 (test code = 382) CO2 (BEAKER) (test 24 meq/L 22-29 code = 355) BLOOD UREA NITROGEN 25 mg/dL 7-21 H (BEAKER) (test code = 354) CREATININE (BEAKER) 0.86 mg/dL 0.57-1.25 Specimen slightly (test code = 358) hemolyzed GLUCOSE RANDOM 102 mg/dL 70-105 (BEAKER) (test code = 652) CALCIUM (BEAKER) 8.3 mg/dL 8.4-10.2 L (test code = 697) EGFR (BEAKER) (test 64 mL/min/1.73 ESTIMA BLESSING GFR IS code = 1092) sq m NOT ACCURATE CREATININE CLEARANCE IN PREDICTING GLOMERULAR FILTRATION RATE . ESTIMATED GFR I S NOT APPLICABLE FOR DIALYSIS PATIEN TS. CBC W/PLT COUNT & AUTO [id number] 06:27:00 Test Item Value Reference Range Interpretation Comments WHITE BLOOD CELL COUNT (BEAKER) 11.4 K/ L 3.5-10.5 H (test code = 775) RED BLOOD CELL COUNT (BEAKER) 2.43 M/ L 3.93-5.22 L (test code = 761) HEMOGLOBIN (BEAKER) (test code = 7.4 GM/DL 11.2-15.7 L 410) HEMATOCRIT (BEAKER) (test code = 23.6 % 34.1-44.9 L 411) MEAN CORPUSCULAR VOLUME (BEAKER) 97.1 fL 79.4-94.8 H (test code = 753) MEAN CORPUSCULAR HEMOGLOBIN 30.5 pg 25.6-32.2 (BEAKER) (test code = 751) MEAN CORPUSCULAR HEMOGLOBIN CONC 31.4 GM/DL 32.2-35.5 L (BEAKER) (test code = 752) RED CELL DISTRIBUTION WIDTH 19.0 % 11.7-14.4 H (BEAKER) (test code = 412) PLATELET COUNT (BEAKER) (test 491 K/CU MM 150-450 H code = 756) MEAN PLATELET VOLUME (BEAKER) 9.0 fL 9.4-12.3 L (test code = 754) NUCLEATED RED BLOOD CELLS 0 /100 WBC 0-0 (BEAKER) (test code = 413) NEUTROPHILS RELATIVE PERCENT 62 % (BEAKER) (test code = 429) LYMPHOCYTES RELATIVE PERCENT 28 % (BEAKER) (test code = 430) MONOCYTES RELATIVE PERCENT 6 % (BEAKER) (test code = 431) EOSINOPHILS RELATIVE PERCENT 2 % (BEAKER) (test code = 432) BASOPHILS RELATIVE PERCENT 0 % (BEAKER) (test code = 437) NEUTROPHILS ABSOLUTE COUNT 7.06 K/ L 1.56-6.13 H (BEAKER) (test code = 670) LYMPHOCYTES ABSOLUTE COUNT 3.19 K/ L 1.18-3.74 (BEAKER) (test code = 414) MONOCYTES ABSOLUTE COUNT (BEAKER) 0.71 K/ L 0.24-0.36 H (test code = 415) EOSINOPHILS ABSOLUTE COUNT 0.20 K/ L 0.04-0.36 (BEAKER) (test code = 416) BASOPHILS ABSOLUTE COUNT (BEAKER) 0.05 K/ L 0.01-0.08 (test code = 417) IMMATURE GRANULOCYTES-RELATIVE 2 % 0-1 H PERCENT (BEAKER) (test code = 2801) URINALYSIS W/ [id number] 17:10:00 Test Item Value Reference Range Interpretation Comments COLOR (BEAKER) (test code = Light Yellow 470) CLARITY (BEAKER) (test code = Clear 469) SPECIFIC GRAVITY UA (BEAKER) 1.005 1.001-1.035 (test code = 468) PH UA (BEAKER) (test code = 5.5 5.0-8.0 467) PROTEIN UA (BEAKER) (test code Negative Negative = 464) GLUCOSE UA (BEAKER) (test code Negative Negative = 365) KETONES UA (BEAKER) (test code Negative Negative = 371) BILIRUBIN UA (BEAKER) (test Negative Negative code = 462) BLOOD UA (BEAKER) (test code = Negative Negative 461) NITRITE UA (BEAKER) (test code Negative Negative = 465) LEUKOCYTE ESTERASE UA (BEAKER) Negative Negative (test code = 466) UROBILINOGEN UA (BEAKER) (test 0.2 mg/dL 0.2-1.0 code = 463) RBC UA (BEAKER) (test code = 0 /HPF 519) WBC UA (BEAKER) (test code = 2 /HPF 520) SQUAMOUS EPITHELIAL (BEAKER) < /HPF (test code = 516) SOURCE(BEAKER) (test code = Urine, Voided 6053) CBC W/PLT COUNT & AUTO [id number] 07:33:00 Test Item Value Reference Range Interpretation Comments WHITE BLOOD CELL COUNT (BEAKER) 14.2 K/ L 3.5-10.5 H (test code = 775) RED BLOOD CELL COUNT (BEAKER) 2.52 M/ L 3.93-5.22 L (test code = 761) HEMOGLOBIN (BEAKER) (test code = 7.7 GM/DL 11.2-15.7 L 410) HEMATOCRIT (BEAKER) (test code = 23.8 % 34.1-44.9 L 411) MEAN CORPUSCULAR VOLUME (BEAKER) 94.4 fL 79.4-94.8 (test code = 753) MEAN CORPUSCULAR HEMOGLOBIN 30.6 pg 25.6-32.2 (BEAKER) (test code = 751) MEAN CORPUSCULAR HEMOGLOBIN CONC 32.4 GM/DL 32.2-35.5 (BEAKER) (test code = 752) RED CELL DISTRIBUTION WIDTH 19.9 % 11.7-14.4 H (BEAKER) (test code = 412) PLATELET COUNT (BEAKER) (test 506 K/CU MM 150-450 H code = 756) MEAN PLATELET VOLUME (BEAKER) 8.7 fL 9.4-12.3 L (test code = 754) NUCLEATED RED BLOOD CELLS 0 /100 WBC 0-0 (BEAKER) (test code = 413) NEUTROPHILS RELATIVE PERCENT 62 % (BEAKER) (test code = 429) LYMPHOCYTES RELATIVE PERCENT 28 % (BEAKER) (test code = 430) MONOCYTES RELATIVE PERCENT 6 % (BEAKER) (test code = 431) EOSINOPHILS RELATIVE PERCENT 1 % (BEAKER) (test code = 432) BASOPHILS RELATIVE PERCENT 1 % (BEAKER) (test code = 437) NEUTROPHILS ABSOLUTE COUNT 8.89 K/ L 1.56-6.13 H (BEAKER) (test code = 670) LYMPHOCYTES ABSOLUTE COUNT 3.99 K/ L 1.18-3.74 H (BEAKER) (test code = 414) MONOCYTES ABSOLUTE COUNT (BEAKER) 0.85 K/ L 0.24-0.36 H (test code = 415) EOSINOPHILS ABSOLUTE COUNT 0.18 K/ L 0.04-0.36 (BEAKER) (test code = 416) BASOPHILS ABSOLUTE COUNT (BEAKER) 0.07 K/ L 0.01-0.08 (test code = 417) IMMATURE GRANULOCYTES-RELATIVE 2 % 0-1 H PERCENT (BEAKER) (test code = 2801) LIPID [id number] 05:57:00 Test Item Value Reference Range Interpretation Comments TRIGLYCERIDES (BEAKER) (test code = 181 mg/dL 540) CHOLESTEROL (BEAKER) (test code = 137 mg/dL 631) HDL CHOLESTEROL (BEAKER) (test code 37 mg/dL = 976) LDL CHOLESTEROL CALCULATED (BEAKER) 64 mg/dL (test code = 633) Triglyceride Reference Range: Low Risk <150 Borderline 150-199 High Risk 200-499 Very High Risk >=500Cholesterol Reference Range: Low Risk <200 Borderline 200-239 High Risk >240HDL Cholesterol Reference Range: Low Risk >=60 High Risk <40LDL Cholesterol Reference Range: Optimal <100 Near Optimal 100-129 Borderline 130-159 High 160-189 Very High >=190 FastingBASIC METABOLIC [id number] 05:57:00 Test Item Value Reference Range Interpretation Comments SODIUM (BEAKER) 140 meq/L 136-145 (test code = 381) POTASSIUM (BEAKER) 4.3 meq/L 3.5-5.1 (test code = 379) CHLORIDE (BEAKER) 109 meq/L 98-107 H (test code = 382) CO2 (BEAKER) (test 21 meq/L 22-29 L code = 355) BLOOD UREA NITROGEN 22 mg/dL 7-21 H (BEAKER) (test code = 354) CREATININE (BEAKER) 0.86 mg/dL 0.57-1.25 (test code = 358) GLUCOSE RANDOM 109 mg/dL 70-105 H (BEAKER) (test code = 652) CALCIUM (BEAKER) 8.0 mg/dL 8.4-10.2 L (test code = 697) EGFR (BEAKER) (test 64 mL/min/1.73 ESTIMA BLESSING GFR IS code = 1092) sq m NOT ACCURATE CREATININE CLEARANCE IN PREDICTING GLOMERULAR FILTRATION RATE . ESTIMATED GFR I S NOT APPLICABLE FOR DIALYSIS PATIEN TS. FastingTROPONIN [id number] 05:52:00 Test Item Value Reference Range Interpretation Comments TROPONIN I (BEAKER) (test code = 0.04 ng/mL 0.00-0.03 H 397) Effective 08/19/2014: Reference Range ChangeNew: 0.00-0.03 Previous [...] acidosis, acute neurological disease, and persistent tachyarrhythmia.FastingTROPONIN [id number] 00:23:00 Test Item Value Reference Range Interpretation Comments TROPONIN I (BEAKER) (test code = 0.05 ng/mL 0.00-0.03 H 397) Effective 08/19/2014: Reference Range ChangeNew: 0.00-0.03 Previous [...] and persistent tachyarrhythmia.CBC W/PLT COUNT & AUTO DIFFERENTIAL 2017-05-20 22:52:00 Test Item Value Reference Range Interpretation Comments WHITE BLOOD CELL COUNT (BEAKER) 16.7 K/ L 3.5-10.5 H (test code = 775) RED BLOOD CELL COUNT (BEAKER) 2.38 M/ L 3.93-5.22 L (test code = 761) HEMOGLOBIN (BEAKER) (test code = 7.4 GM/DL 11.2-15.7 L 410) HEMATOCRIT (BEAKER) (test code = 22.3 % 34.1-44.9 L 411) MEAN CORPUSCULAR VOLUME (BEAKER) 93.7 fL 79.4-94.8 (test code = 753) MEAN CORPUSCULAR HEMOGLOBIN 31.1 pg 25.6-32.2 (BEAKER) (test code = 751) MEAN CORPUSCULAR HEMOGLOBIN CONC 33.2 GM/DL 32.2-35.5 (BEAKER) (test code = 752) RED CELL DISTRIBUTION WIDTH 20.1 % 11.7-14.4 H (BEAKER) (test code = 412) PLATELET COUNT (BEAKER) (test 497 K/CU MM 150-450 H code = 756) MEAN PLATELET VOLUME (BEAKER) 8.6 fL 9.4-12.3 L (test code = 754) NUCLEATED RED BLOOD CELLS 1 /100 WBC 0-0 H (BEAKER) (test code = 413) IMMATURE GRANULOCYTES-RELATIVE 2 % 0-1 H PERCENT (BEAKER) (test code = 2801) (MANUAL DIFFERENTIAL)2017-05-20 22:52:00 Test Item Value Reference Range Interpretation Comments NEUTROPHILS - REL (DIFF) (BEAKER) 70 % (test code = 1359) LYMPHOCYTES - REL (DIFF) (BEAKER) 26 % (test code = 1360) MONOCYTES - REL (DIFF) (BEAKER) 2 % (test code = 1361) METAMYELOCYTES-REL (DIFF) 1 % 0-0 H (BEAKER) (test code = 258) BANDS - REL (DIFF) (BEAKER) (test 1 % 0-10 code = 1348) NEUTROPHILS - ABS (DIFF) (BEAKER) 11.69 K/ L 1.80-8.00 H (test code = 1365) LYMPHOCYTES - ABS (DIFF) (BEAKER) 4.34 K/ L 1.48-4.50 (test code = 1366) MONOCYTES - ABS (DIFF) (BEAKER) 0.33 K/ L 0.00-1.30 (test code = 1367) METAMYELOCTYES - ABS (DIFF) 0.17 K/ L 0.00-0.00 H (BEAKER) (test code = 261) BANDS-ABS (DIFF) (BEAKER) (test 0.2 K/ L 0.0-0.8 code = 1349) TOTAL COUNTED (BEAKER) (test code 100 = 1351) BANDS + SEGMENTED NEUTROPHILS 11.86 (BEAKER) (test code = 1352) MANUAL NRBC PER 100 CELLS 2 /100 WBC 0-0 H (BEAKER) (test code = 1353) WBC MORPHOLOGY (BEAKER) (test Normal code = 487) PLT MORPHOLOGY (BEAKER) (test Normal code = 486) ANISOCYTOSIS (BEAKER) (test code 1+ few = 961) MACROCYTES (BEAKER) (test code = 1+ few 964) POLYCHROMATOPHILLIC RBCS(BEAKER) 2+ moderate (test code = 478) [id number] 20:22:00 Test Item Value Reference Range Interpretation Comments HAPTOGLOBIN (BEAKER) (test code = 376 mg/dL 14-258 H 366) Effective 08/19/2014: Reference Range ChangeNew: 14-258 Previous: [id number] 2017-05-20 19:39:00 Test Item Value Reference Range Interpretation Comments PARTIAL THROMBOPLASTIN TIME 26.1 seconds 22.5-36.0 (BEAKER) (test code = 760) COMPREHENSIVE METABOLIC [id number] 19:39:00 Test Item Value Reference Range Interpretation Comments TOTAL PROTEIN 6.1 gm/dL 6.0-8.3 (BEAKER) (test code = 770) ALBUMIN (BEAKER) 3.0 g/dL 3.5-5.0 L (test code = 1145) ALKALINE PHOSPHATASE 101 U/L 40-150 (BEAKER) (test code = 346) BILIRUBIN TOTAL < mg/dL 0.2-1.2 (BEAKER) (test code = 377) SODIUM (BEAKER) (test 140 meq/L 136-145 code = 381) POTASSIUM (BEAKER) 4.1 meq/L 3.5-5.1 (test code = 379) CHLORIDE (BEAKER) 107 meq/L 98-107 (test code = 382) CO2 (BEAKER) (test 23 meq/L 22-29 code = 355) BLOOD UREA NITROGEN 25 mg/dL 7-21 H (BEAKER) (test code = 354) CREATININE (BEAKER) 0.99 mg/dL 0.57-1.25 (test code = 358) GLUCOSE RANDOM 86 mg/dL 70-105 (BEAKER) (test code = 652) CALCIUM (BEAKER) 8.2 mg/dL 8.4-10.2 L (test code = 697) AST (SGOT) (BEAKER) 55 U/L 5-34 H (test code = 353) ALT (SGPT) (BEAKER) 44 U/L 6-55 (test code = 347) EGFR (BEAKER) (test 55 mL/min/1.73 ESTIMA BLESSING GFR IS code = 1092) sq m NOT ACCURATE CREATININE CLEARANCE IN PREDICTING GLOMERULAR FILTRATION RATE . ESTIMATED GFR I S NOT APPLICABLE FOR DIALYSIS PATIEN TS. PROTHROMBIN [id number] 19:38:00 Test Item Value Reference Range Interpretation Comments PROTIME (BEAKER) (test code = 14.2 seconds 11.7-14.7 759) INR (BEAKER) (test code = 370) 1.1 <=5.9 RECOMMENDED COUMADIN/WARFARIN INR THERAPY RANGESSTANDARD DOSE: 2.0 - 3.0 Includes: PROPHYLAXIS forvenous thrombosis, systemic embolization; TREATMENT for venous thrombosis and/or pulmonary embolus.HIGH RISK: Target INR is 2.5-3.5 for patients with mechanical heart valves.CREATINE KINASE (CK), TOTAL AND MB 2017-05-20 18:25:00 Test Item Value Reference Range Interpretation Comments CREATINE KINASE TOTAL (BEAKER) 1250 U/L 29-200 H (test code = 380) CREATINE KINASE-MB (BEAKER) (test 17.1 ng/mL 0.0-6.6 H code = 750) CREATINE KINASE-MB INDEX (BEAKER) 1.4 % (test code = 395) Effective 08/19/2014: CK-MB Reference Range ChangeNew: 0.0-6.6 Previous: 0.0-4.9CK-MB Reference Range:<6.7 Normal6.7-10.0 Borderline>10.0 AbnormalTROPONIN [id number] 18:25:00 Test Item Value Reference Range Interpretation Comments TROPONIN I (BEAKER) (test code = 0.05 ng/mL 0.00-0.03 H 397) Effective 08/19/2014: Reference Range ChangeNew: 0.00-0.03 Previous [...] acute neurological disease, and persistent tachyarrhythmia.LACTATE DEHYDROGENASE (LDH)2017-05-20 18:19:00 Test Item Value Reference Range Interpretation Comments LACTATE DEHYDROGENASE (BEAKER) (test 454 U/L 125-220 H code = 635) HEMOGLOBIN AND [id number] 18:04:00 Test Item Value Reference Range Interpretation Comments HEMOGLOBIN (BEAKER) (test code = 8.0 GM/DL 11.2-15.7 L 410) HEMATOCRIT (BEAKER) (test code = 24.4 % 34.1-44.9 L 411) SEDIMENTATION [id number] 13:43:00 Test Item Value Reference Range Interpretation Comments SEDIMENTATION RATE, ERYTHROCYTE 63 mm/HR 0-40 H (BEAKER) (test code = 766) [id number] 12:08:00 Test Item Value Reference Range Interpretation Comments RPR SCREEN (BEAKER) (test code = Nonreactive Nonreactive 420) POCT-GLUCOSE [id number] 11:27:00 Test Item Value Reference Range Interpretation Comments POC-GLUCOSE METER 178 mg/dL 70-110 H TESTED AT [facility] [address] ([employer] [facility]) (test code = [place] 1538) [address] HEMOGLOBIN [id number] 09:58:00 Test Item Value Reference Range Interpretation Comments HEMOGLOBIN A1C (BEAKER) (test code = 5.8 % 4.3-6.1 368) CBC W/PLT COUNT & AUTO [id number] 09:27:00 Test Item Value Reference Range Interpretation Comments WHITE BLOOD CELL COUNT (BEAKER) 18.9 K/ L 3.5-10.5 H (test code = 775) RED BLOOD CELL COUNT (BEAKER) 2.40 M/ L 3.93-5.22 L (test code = 761) HEMOGLOBIN (BEAKER) (test code = 7.4 GM/DL 11.2-15.7 L 410) HEMATOCRIT (BEAKER) (test code = 22.9 % 34.1-44.9 L 411) MEAN CORPUSCULAR VOLUME (BEAKER) 95.4 fL 79.4-94.8 H (test code = 753) MEAN CORPUSCULAR HEMOGLOBIN 30.8 pg 25.6-32.2 (BEAKER) (test code = 751) MEAN CORPUSCULAR HEMOGLOBIN CONC 32.3 GM/DL 32.2-35.5 (BEAKER) (test code = 752) RED CELL DISTRIBUTION WIDTH 18.8 % 11.7-14.4 H (BEAKER) (test code = 412) PLATELET COUNT (BEAKER) (test 497 K/CU MM 150-450 H code = 756) MEAN PLATELET VOLUME (BEAKER) 8.8 fL 9.4-12.3 L (test code = 754) NUCLEATED RED BLOOD CELLS 1 /100 WBC 0-0 H (BEAKER) (test code = 413) NEUTROPHILS RELATIVE PERCENT 65 % (BEAKER) (test code = 429) LYMPHOCYTES RELATIVE PERCENT 26 % (BEAKER) (test code = 430) MONOCYTES RELATIVE PERCENT 6 % (BEAKER) (test code = 431) EOSINOPHILS RELATIVE PERCENT 0 % (BEAKER) (test code = 432) BASOPHILS RELATIVE PERCENT 0 % (BEAKER) (test code = 437) NEUTROPHILS ABSOLUTE COUNT 12.40 K/ L 1.56-6.13 H (BEAKER) (test code = 670) LYMPHOCYTES ABSOLUTE COUNT 4.88 K/ L 1.18-3.74 H (BEAKER) (test code = 414) MONOCYTES ABSOLUTE COUNT (BEAKER) 1.13 K/ L 0.24-0.36 H (test code = 415) EOSINOPHILS ABSOLUTE COUNT 0.04 K/ L 0.04-0.36 (BEAKER) (test code = 416) BASOPHILS ABSOLUTE COUNT (BEAKER) 0.05 K/ L 0.01-0.08 (test code = 417) IMMATURE GRANULOCYTES-RELATIVE 2 % 0-1 H PERCENT (BEAKER) (test code = 2801) (MANUAL DIFFERENTIAL)2017-05-20 09:27:00 Test Item Value Reference Range Interpretation Comments TOTAL COUNTED (BEAKER) (test code = 1351) WBC MORPHOLOGY (BEAKER) (test Normal code = 487) PLT MORPHOLOGY (BEAKER) (test Normal code = 486) ANISOCYTOSIS (BEAKER) (test code 2+ moderate = 961) POLYCHROMATOPHILLIC RBCS(BEAKER) 1+ few (test code = 478) POCT-GLUCOSE [id number] 07:27:00 Test Item Value Reference Range Interpretation Comments POC-GLUCOSE METER 120 mg/dL 70-110 H TESTED AT [facility] [address] (BEAKER) (test code = [place] 1538) [address] [id number] 07:02:00 Test Item Value Reference Range Interpretation Comments FERRITIN (BEAKER) (test code = 361) 370 ng/mL 5-275 H Effective 08/19/2014: Reference Range ChangeNew: Male 5-275 Previous: Male [phone] Female [phone] Female 10-291TSH/FREE T4 IF INDICATED 2017-05-20 07:02:00 Test Item Value Reference Range Interpretation Comments THYROID STIMULATING HORMONE 1.71 uIU/mL 0.35-4.94 (BEAKER) (test code = 772) IRON, TIBC, % SAT. (WITHOUT FERRITIN)2017-05-20 07:00:00 Test Item Value Reference Range Interpretation Comments IRON (BEAKER) (test code = 547) 100 ug/dL 40-160 TOTAL IRON BINDING CAPACITY 265 ug/dL 250-450 (BEAKER) (test code = 769) IRON % SATURATION (2) (BEAKER) 38 % 20-55 (test code = 2590) CREATINE KINASE (CK), TOTAL AND [id number] 06:42:00 Test Item Value Reference Range Interpretation Comments CREATINE KINASE TOTAL (BEAKER) 1329 U/L 29-200 H (test code = 380) CREATINE KINASE-MB (BEAKER) (test 16.7 ng/mL 0.0-6.6 H code = 750) CREATINE KINASE-MB INDEX (BEAKER) 1.3 % (test code = 395) Effective 08/19/2014: CK-MB Reference Range ChangeNew: 0.0-6.6 Previous: 0.0-4.9CK-MB Reference Range:<6.7 Normal6.7-10.0 Borderline>10.0 AbnormalTROPONIN [id number] 06:42:00 Test Item Value Reference Range Interpretation Comments TROPONIN I (BEAKER) (test code = 0.06 ng/mL 0.00-0.03 H 397) Effective 08/19/2014: Reference Range ChangeNew: 0.00-0.03 Previous [...] renalfailure, acidosis, acute neurological disease, and persistent tachyarrhythmia.[id number] 06:35:00 Test Item Value Reference Range Interpretation Comments PHOSPHORUS (BEAKER) (test code = 3.5 mg/dL 2.3-4.7 604) [id number] 06:35:00 Test Item Value Reference Range Interpretation Comments MAGNESIUM (BEAKER) (test code = 2.3 mg/dL 1.6-2.6 627) LIPID [id number] 06:35:00 Test Item Value Reference Range Interpretation Comments TRIGLYCERIDES (BEAKER) (test code = 145 mg/dL 540) CHOLESTEROL (BEAKER) (test code = 132 mg/dL 631) HDL CHOLESTEROL (BEAKER) (test code 33 mg/dL = 976) LDL CHOLESTEROL CALCULATED (BEAKER) 70 mg/dL (test code = 633) Triglyceride Reference Range: Low Risk <150 Borderline 150-199 High Risk 200-499 Very High Risk >=500Cholesterol Reference Range: Low Risk <200 Borderline 200-239 High Risk >240HDL Cholesterol Reference Range: Low Risk >=60 High Risk <40LDL Cholesterol Reference Range: Optimal <100 Near Optimal 100-129 Borderline 130-159 High 160-189 Very High >=190HEPATIC FUNCTION [id number] 06:35:00 Test Item Value Reference Range Interpretation Comments TOTAL PROTEIN (BEAKER) (test code = 5.4 gm/dL 6.0-8.3 L 770) ALBUMIN (BEAKER) (test code = 1145) 2.7 g/dL 3.5-5.0 L BILIRUBIN TOTAL (BEAKER) (test code 0.4 mg/dL 0.2-1.2 = 377) BILIRUBIN DIRECT (BEAKER) (test 0.2 mg/dL 0.1-0.5 code = 706) ALKALINE PHOSPHATASE (BEAKER) (test 81 U/L 40-150 code = 346) AST (SGOT) (BEAKER) (test code = 56 U/L 5-34 H 353) ALT (SGPT) (BEAKER) (test code = 41 U/L 6-55 347) BASIC METABOLIC [id number] 06:34:00 Test Item Value Reference Range Interpretation Comments SODIUM (BEAKER) 140 meq/L 136-145 (test code = 381) POTASSIUM (BEAKER) 4.1 meq/L 3.5-5.1 (test code = 379) CHLORIDE (BEAKER) 107 meq/L 98-107 (test code = 382) CO2 (BEAKER) (test 21 meq/L 22-29 L code = 355) BLOOD UREA NITROGEN 34 mg/dL 7-21 H (BEAKER) (test code = 354) CREATININE (BEAKER) 1.22 mg/dL 0.57-1.25 (test code = 358) GLUCOSE RANDOM 95 mg/dL 70-105 (BEAKER) (test code = 652) CALCIUM (BEAKER) 8.4 mg/dL 8.4-10.2 (test code = 697) EGFR (BEAKER) (test 43 mL/min/1.73 ESTIMA BLESSING GFR IS code = 1092) sq m NOT ACCURATE CREATININE CLEARANCE IN PREDICTING GLOMERULAR FILTRATION RATE . ESTIMATED GFR I S NOT APPLICABLE FOR DIALYSIS PATIEN TS.
[2021-11-04 20:21] LABS: Urine Appearance TURBID (Clear); Urine Blood 3+ (Negative); Urine Color Red (Yellow); Urine Glucose NEGATIVE (Negative); Urine Protein 3+ (Negative)
[2021-11-04 20:28] LABS: Urine Bilirubin NEGATIVE (Negative)
[2021-11-04 20:34] LABS: Absolute Lymphocytes (CBC) 2.6 K/uL (0.7-4.9); Hematocrit 31.2 % (36.0-45.0); Lymphocytes % 15.7 % (15.3-44.8); MPV 7.2 fL (7.6-11.3); RBC Red Blood Cell Count 3.46 M/uL (3.86-4.86)
[2021-11-04 20:35] LABS: Urine Bacteria >50 /HPF (<20); Urine Mucus 2+ /HPF (NONE SEEN); Urine RBC TNTC /HPF (NONE SEEN)
--- NOTE | 2021-11-04 20:36 | RAD REPORT ---
EXAM DESCRIPTION: CT - CTHCSPWOC - 11/04/2021 8:20 pm CLINICAL HISTORY: Trauma, head and neck injury. fall COMPARISON: Head C Spine Mpr Wo Con dated 05/19/2017 TECHNIQUE: Axial 5 mm thick images of the head were obtained. Axial 2 mm thick images of the cervical spine were obtained with sagittal and coronal reconstruction images generated and reviewed. All CT scans are performed using dose optimization technique as appropriate and may include automated exposure control or mA/KV adjustment according to patient size. FINDINGS: CT HEAD WITHOUT CONTRAST: No acute hemorrhage, hydrocephalus or extra-axial collection is identified.Small old infarcts noted r ight frontal lobe and left occipital lobe.No areas of brain edema or midline shift. The paranasal sinuses and mastoids are clear.The calvarium is intact. CT CERVICAL SPINE WITHOUT CONTRAST: No fracture or traumatic subluxation.4 mm degenerative anterolisthesis of C4 on 5. 2 mm degenerative anterolisthesis of C5 on 6. Prominent posterior osteophyte is present at C6-7. There is linear lucenc y seen in the left C5 transverse foramen medial and lateral aspect (image 53/ 106). This was not pres ent on 2017 prior exam. No prevertebral soft tissues swelling is identified. IMPRESSION: No acute intracranial findings. Lucency seen left C5 transverse foramen medial and lateral aspect is identified. This was not present on 2017 prior study and could represent a fracture of undetermined age. MRI cervical spine followup assessment would be recommended. Moderate mid and lower cervical degenerative changes with 4 mm and 2 mm of degenerative anterolisthes is present as detailed.
--- NOTE | 2021-11-04 20:38 | RAD REPORT ---
EXAM DESCRIPTION: RAD - Chest Single View - 11/04/2021 8:17 pm CLINICAL HISTORY: TRAUMA Chest pain. COMPARISON: Chest Pa And Lat (2 Views) dated 11/20/2019; Chest Single View dated 11/13/2019; Chest Sin gle View dated 05/19/2017 FINDINGS: Portable technique limits examination quality. The lungs are grossly clear. The heart is normal in size. No displaced fractures. IMPRESSION: No acute intrathoracic process suspected.
--- NOTE | 2021-11-04 21:18 | ER ---
Nurse's Notes [facility] Name: Dominik Washington Age: 81 yrs Sex: Female : 1940 Arrival Date: 11/04/2021 Time: 19:31 Bed 4 Private MD: Diagnosis: UTI/ Urinary tract infection, site not specified;Other specified sepsis Presentation: 11/04 19:31 Chief complaint: EMS states: "Family called out saying she has had multiple falls and tw5 hallucinations, She is telling us that she has two young children in the 3rd and 4th grade. She does have a history of Alzheimer's and dementia.". 19:31 Method Of Arrival: EMS: [facility] tw5 19:37 Coronavirus screen: unable to obtain at this time. Ebola Screen: Unable to complete the tw5 Ebola screening because:. Initial Sepsis Screen: Does the patient meet any 2 criteria?. 20:04 Initial Sepsis Screen: Does the patient meet any 2 criteria? Altered Mental Status. HR tw5 > 90 bpm. Does the patient have a suspected source of infection? No. Patient's initial sepsis screen is negative. Risk Assessment: Do you want to hurt yourself or someone else? Patient reports no desire to harm self or others. Onset of symptoms is unknown. 20:04 Acuity: HERNÁN 3 tw5 Triage Assessment: 20:04 General: Appears unkempt. tw5 Historical: - Allergies: 20:02 No Known Allergies; tw5 - PMHx: 20:02 CVA; Hypertension; tw5 - Immunization history:: unknownb. - Social history:: Smoking status: Patient denies any tobacco usage or history of. Screenin:02 Abuse screen: Denies threats or abuse. Denies injuries from another. Nutritional tw5 screening: No deficits noted. Tuberculosis screening: No symptoms or risk factors identified. Fall Risk Secondary diagnosis (15 points) IV access (20 points). Mental Status- Overestimates/Forgets Limitations (15 pts.). Assessment: 19:34 Pain: Complains of pain in left knee. Derm: Skin is fragile, is thin, Bruising that is tw5 bright red, on left elbow and palmar aspect of left forearm. Musculoskeletal: Swelling present in left wrist. 19:34 General: Appears uncomfortable, slender, Behavior is calm, cooperative. Neuro: Level of tw5 Consciousness is awake, alert, obeys commands, Oriented to person, place. Cardiovascular: Capillary refill < 3 seconds is brisk in bilateral fingers. Respiratory: Airway is patent Trachea midline Respiratory effort is even. Derm: Bruising that is bright red, on medial aspect of left knee. Musculoskeletal: Swelling present in medial aspect of left knee. 19:57 : Urine is cloudy, skin tear on left inner thigh. tw5 20:57 Reassessment: Patient and/or family updated on plan of care and expected duration. Pain vc1 level reassessed. Patient states feeling better. Patient states symptoms have improved. 22:46 Reassessment: Patient and/or family updated on plan of care and expected duration. Pain vc1 level reassessed. Patient denies pain at this time. 11/05 01:13 Reassessment: Patient and/or family updated on plan of care and expected duration. Pain vc1 level reassessed. Patient denies pain at this time. Patient states feeling better. Vital Signs: 11/04 19:37 BP 145 / 72; Pulse 100; Resp 18; Temp 98.6; Pulse Ox 100% on R/A; Weight 49.9 kg; tw5 Height 5 ft. 4 in. (162.56 cm); 20:02 BP 145 / 72; Pulse 108; Resp 27; Pulse Ox 100% ; tw5 22:35 BP 152 / 67; Pulse 106; Resp 25; Pulse Ox 100% ; Pain 0/10; vc1 04 01:12 BP 133 / 68; Pulse 97; Resp 18; Pulse Ox 100% on R/A; tw5 11/04 19:37 Body Mass Index 18.88 (49.90 kg, 162.56 cm) tw5 ED Course: 11/04 19:31 Patient arrived in ED. tw5 19:32 Zechariah Ibrahim MD is Attending Physician. sp3 19:52 Initial lab(s) drawn, by me, sent to lab. Inserted saline lock: 22 gauge in right tw5 wrist, using aseptic technique. Blood collected. 19:52 Repositioned patient. Cleaned of incontinence. tw5 19:57 Urine collected: straight cath specimen, cloudy, Amount Returned: 100mL. tw5 20:02 Patient has correct armband on for positive identification. Placed in gown. Call light tw5 in reach. Side rails up X 1. cloth finishing range operator on. Pulse ox on. NIBP on. Door closed. Noise minimized. Moved to private room. Warm blanket given. Verbal reassurance given. 20:04 Triage completed. tw5 20:04 Basic Metabolic Panel Sent. tw5 20:04 CBC with Diff Sent. tw5 20:04 LFT's Sent. tw5 20:04 Magnesium Sent. tw5 20:04 Troponin HS Sent. tw5 20:04 Arm band placed on right wrist. tw5 20:07 EKG done, by ED staff, reviewed by Zechariah Ibrahim MD. tw5 20:17 XRAY Chest (1 view) In Process Unspecified. EDMS 20:20 CT Head C Spine In Process Unspecified. EDMS 20:52 Basic Metabolic Panel Sent. vc1 20:52 LFT's Sent. vc1 20:52 Magnesium Sent. vc1 20:52 Troponin HS Sent. vc1 20:53 Urine Culture Sent. vc1 21:17 Prince Tang MD is Hospitalizing Provider. sp3 21:21 Wrist Left (2 View) XRAY In Process Unspecified. EDMS 21:21 Knee Left 2 View XRAY In Process Unspecified. EDMS 21:42 Mili Claudio is Primary Nurse. tw5 22:12 Asad Kwong MD is Hospitalizing Provider. la1 22:16 Lactate Sent. vc1 22:19 Orthoglass splint: Volar splint applied on left arm. oe 23:28 COVID-19 SARS RT PCR (Document "Date of Onset" if Symptomatic) Sent. vc1 11/05 01:11 No provider procedures requiring assistance completed. Patient admitted, IV remains in tw5 place. 01:13 Ryan cath inserted, using sterile technique, 16 Fr., by ga, balloon inflated, to tw5 gravity drainage, returned cloudy urine. Patient tolerated well. Administered Medications: 11/04 21:54 Drug: NS 0.9% 1000 ml Route: IV; Rate: 1 bolus; Site: right hand; vc1 11/05 00:38 Follow up: IV Status: Completed infusion; IV Intake: 1000ml vc1 11/04 21:54 Drug: NS 0.9% 500 ml Route: IV; Rate: bolus; Site: right hand; vc1 23:28 Follow up: IV Status: Completed infusion; IV Intake: 500ml vc1 22:22 Drug: Cefepime 2 grams Route: IVPB; Rate: 200 ml/hr; Infused Over: 30 mins; Site: right vc1 hand; 23:28 Follow up: Response: No adverse reaction; IV Status: Completed infusion; IV Intake: vc1 100ml 11/05 00:38 Drug: NS 0.9% 1000 ml Route: IV; Rate: 100 ml/hr; Site: right hand; vc1 01:12 Follow up: Response: No adverse reaction; IV Status: Infusion continued upon admission; tw5 IV Intake: 200ml Intake: 11/04 23:28 IV: 500ml; Total: 500ml. vc1 23:28 IV: 100ml; Total: 600ml. vc1 11/05 00:38 IV: 1000ml; Total: 1600ml. vc1 01:12 IV: 200ml; Total: 1800ml. tw5 Outcome: 11/04 21:17 Decision to Hospitalize by Provider. sp3 11/05 01:11 Admitted to Med/surg accompanied by nurse, room 207, with chart, Report called to [facility] report was given by CURTIS CHRISTIANSEN Condition: stable Instructed on the need for admit. 01:19 Patient left the ED. vc1 Signatures: Dispatcher [employer] EDMS Curtis Solorio, SIGNAL TOWER OPERATOR-C SIGNAL TOWER OPERATOR-Cla1 Harry Flores Setul, MD MD sp3 Mili Claudio [facility] Corinne Corey RN RN vc1 Corrections: (The following items were deleted from the chart) 11/04 20:15 20:04 UA MICROSCOPIC+U.LAB.BRZ drawn and sent. tw5 EDMS 20:15 20:04 URINALYSIS+U.LAB.BRZ drawn and sent. tw5 EDMS
--- NOTE | 2021-11-04 21:18 | EDPHYS ---
Physician Documentation [facility] Name: Dominik Washington Age: 81 yrs Sex: Female : 1940 Arrival Date: 11/04/2021 Time: 19:31 Bed 4 Private MD: ED Physician Zechariah Ibrahim HPI: 11/04 19:36 This 81 yrs old Female presents to ER via EMS with complaints of Altered Mental Status. sp3 19:36 89-year-old female with history of dementia and UTI induced delirium in the past now sp3 presents with chief complaint "found on floor by family". Patient states that she has a hard time walking on the carpet with her walker and has had falls in the past. She also states that her left knee sometimes hurts makes it difficult for her to ambulate. Today she states that she recalls falling while trying to get up and was not able to fully get up after she fell. Her family had found her and activated EMS to bring her to the ED for evaluation from a trauma standpoint as well as to assess for possible UTI. Patient recalls entire event and can describe everything that happened. She has no complaints and denies headache, neck pain, chest pain, back pain, shortness breath, abdominal pain, extremity pain, bleeding, nausea, vomiting, diarrhea, memory loss, numbness or tingling, any other HPI events at this time. Remainder of ROS is negative.. Historical: - Allergies: 20:02 No Known Allergies; tw5 - PMHx: 20:02 CVA; Hypertension; tw5 - Immunization history:: unknownb. - Social history:: Smoking status: Patient denies any tobacco usage or history of. ROS: 19:38 Constitutional: Negative for fever, chills, and weight loss, Eyes: Negative for injury, sp3 pain, redness, and discharge, ENT: Negative for injury, pain, and discharge, Neck: Negative for injury, pain, and swelling, Cardiovascular: Negative for chest pain, palpitations, and edema, Respiratory: Negative for shortness of breath, cough, wheezing, and pleuritic chest pain, Abdomen/GI: Negative for abdominal pain, nausea, vomiting, diarrhea, and constipation, Back: Negative for injury and pain, Skin: Negative for injury, rash, and discoloration, Neuro: Negative for headache, weakness, numbness, tingling, and seizure, Psych: Negative for depression, anxiety, suicide ideation, homicidal ideation, and hallucinations, Allergy/Immunology: Negative for hives, rash, and allergies, Endocrine: Negative for neck swelling, polydipsia, polyuria, polyphagia, and marked weight changes. 19:39 All other systems are negative. sp3 Exam: 19:38 Constitutional: This is a well developed, well nourished patient who is awake, alert, sp3 and in no acute distress. Head/Face: Normocephalic, atraumatic. Eyes: Pupils equal round and reactive to light, extra-ocular motions intact. Lids and lashes normal. Conjunctiva and sclera are non-icteric and not injected. Cornea within normal limits. Periorbital areas with no swelling, redness, or edema. ENT: Nares patent. No nasal discharge, no septal abnormalities noted. External auditory canals are clear. Oropharynx with no redness, swelling, or masses, exudates, or evidence of obstruction, uvula midline. Mucous membranes moist. Neck: Trachea midline, no thyromegaly or masses palpated, and no cervical lymphadenopathy. Supple, full range of motion without nuchal rigidity, or vertebral point tenderness. No Meningismus. Chest/axilla: Normal chest wall appearance and motion. Nontender with no deformity. No lesions are appreciated. Cardiovascular: Regular rate and rhythm with a normal S1 and S2. No gallops, murmurs, or rubs. Normal PMI, no JVD. No pulse deficits. Respiratory: Lungs have equal breath sounds bilaterally, clear to auscultation and percussion. No rales, rhonchi or wheezes noted. No increased work of breathing, no retractions or nasal flaring. Abdomen/GI: Soft, non-tender, with normal bowel sounds. No distension or tympany. No guarding or rebound. No evidence of tenderness throughout. Back: No spinal tenderness. No costovertebral tenderness. Full range of motion. Skin: Warm, dry with normal turgor. Normal color with no rashes, no lesions, and no evidence of cellulitis. MS/ Extremity: Pulses equal, no cyanosis. Neurovascular intact. Full, normal range of motion. Neuro: Awake and alert, GCS 15, oriented to person, place, time, and situation. Cranial nerves II-XII grossly intact. Motor strength 5/5 in all extremities. Sensory grossly intact. Cerebellar exam normal. Normal gait. 21:01 ECG was reviewed by the Attending Physician. EKG secondary to motion artifact. Sinus sp3 tachycardia at 100 bpm and regular rhythm with a normal axis with an inability to assess ST/T-segment's due to motion artifact but grossly normal. Vital Signs: 19:37 BP 145 / 72; Pulse 100; Resp 18; Temp 98.6; Pulse Ox 100% on R/A; Weight 49.9 kg; tw5 Height 5 ft. 4 in. (162.56 cm); 20:02 BP 145 / 72; Pulse 108; Resp 27; Pulse Ox 100% ; tw5 22:35 BP 152 / 67; Pulse 106; Resp 25; Pulse Ox 100% ; Pain 0/10; vc1 04 01:12 BP 133 / 68; Pulse 97; Resp 18; Pulse Ox 100% on R/A; tw5 11/04 19:37 Body Mass Index 18.88 (49.90 kg, 162.56 cm) tw5 MDM: 02 19:33 Patient medically screened. sp3 19:39 Data reviewed: vital signs, nurses notes. ED course: 81-year-old female found on the sp3 ground with possible trauma and possible UTI infection. Clinically assessing the patient, I am not highly suspicious for any significant trauma injury. Patient nexus criteria is negative. Will assess with CT scan of the head, C-spine as well as chest x-ray. Routine laboratory values and UA are also pending. EKG and troponin also pending to rule out any sort of cardiac etiology. If work-up is negative, will likely discharge patient home secondary to her fall being likely mechanical in nature with no significant injury.. 21:15 ED course: Patient has a 16,000 white count with mild ketones. Will administer cefepime sp3 IV and admit patient for UTI/early sepsis and also had x-rays of her left wrist and knee. Patient's left wrist has deformity but is not painful at all indicating likely an old injury. Her left knee is painful on motion as reported by the nursing staff. X-rays of both joints are pending. Will admit to hospitalist service and proceed from there.. 22:08 ED course: Left wrist x-ray demonstrates volar fracture distal radius with moderate sp3 displacement. Patient continues to be minimal pain and fracture was reduced without any anesthesia and volar splint placed with postreduction x-rays pending. Reduction was performed by physician.. 11/05 00:44 ED course: CT scan of the chest/abdomen/pelvis was ordered secondary to history sp3 obtained with mental disease including bipolar disease and decreased threshold of pain. CT demonstrates 10th rib fracture on the left side along with intertrochanteric left hip fracture. Orthopedics has been consulted by inpatient team. Left radius fracture is already been assessed and reduced as well as splinted.. 11/04 19:35 Order name: Basic Metabolic Panel 3 11/04 19:35 Order name: CBC with Diff; Complete Time: 21:02 3 11/04 19:35 Order name: LFT's 3 11/04 19:35 Order name: Magnesium 3 11/04 19:35 Order name: Troponin HS 3 11/04 20:15 Order name: Urinalysis W/Microscopic; Complete Time: 21:02 EDOH 11/04 20:35 Order name: Urine Culture [facility] 11/04 21:05 Order name: Blood Culture Adult (2) 3 11/04 21:17 Order name: Lactate la1 11/04 21:18 Order name: Lactate; Complete Time: 22:31 EDMS 11/04 22:53 Order name: COVID-19 SARS RT PCR (Document "Date of Onset" if Symptomatic) cs9 11/05 00:17 Order name: SARS-COV-2 RT PCR; Complete Time: 00:44 EDMS 11/04 19:35 Order name: XRAY Chest (1 view); Complete Time: 21:02 3 11/04 19:35 Order name: EKG; Complete Time: 19:36 3 11/04 19:35 Order name: Cardiac monitoring; Complete Time: 20:05 3 11/04 19:35 Order name: EKG - Nurse/Tech; Complete Time: 20:07 3 11/04 19:35 Order name: IV Saline Lock; Complete Time: 20:04 3 11/04 19:35 Order name: Labs collected and sent; Complete Time: 20:04 3 11/04 19:35 Order name: CT Head C Spine; Complete Time: 21:02 3 11/04 20:57 Order name: Wrist Left (2 View) XRAY; Complete Time: 21:55 sp3 11/04 20:57 Order name: Knee Left 2 View XRAY; Complete Time: 21:55 sp3 11/04 21:57 Order name: Pelvis XRAY la1 11/04 22:07 Order name: Wrist Left (2 View) XRAY sp3 11/04 22:31 Order name: Chest Abdomen Pelvis Wo Con CT la1 11/04 19:35 Order name: O2 Per Protocol; Complete Time: 20:04 sp3 11/04 19:35 Order name: O2 Sat Monitoring; Complete Time: 20:04 sp3 11/04 19:35 Order name: Urine Dipstick-Ancillary (obtain specimen); Complete Time: 20:52 sp3 Administered Medications: 11/04 21:54 Drug: NS 0.9% 1000 ml Route: IV; Rate: 1 bolus; Site: right hand; vc1 11/05 00:38 Follow up: IV Status: Completed infusion; IV Intake: 1000ml vc1 11/04 21:54 Drug: NS 0.9% 500 ml Route: IV; Rate: bolus; Site: right hand; vc1 23:28 Follow up: IV Status: Completed infusion; IV Intake: 500ml vc1 22:22 Drug: Cefepime 2 grams Route: IVPB; Rate: 200 ml/hr; Infused Over: 30 mins; Site: right vc1 hand; 23:28 Follow up: Response: No adverse reaction; IV Status: Completed infusion; IV Intake: vc1 100ml 11/05 00:38 Drug: NS 0.9% 1000 ml Route: IV; Rate: 100 ml/hr; Site: right hand; vc1 01:12 Follow up: Response: No adverse reaction; IV Status: Infusion continued upon admission; tw5 IV Intake: 200ml Disposition Summary: 11/04/21 21:17 Hospitalization Ordered Hospitalization Status: Inpatient Admission sp3 [facility] sp[facility] Condition: Stable sp3 Problem: new sp3 Symptoms: have worsened sp3 Bed/Room Type: Standard sp3 Provider: Asad Kwong(11/04/21 22:12) la1 Room Assignment: [facility](11/05/21 01:00) bb Diagnosis - UTI/ Urinary tract infection, site not specified sp3 - Other specified sepsis sp3 Forms: - Medication Reconciliation Form sp3 - SBAR form sp3 Signatures: Dispatcher [employer] EDMS Dyan Soliz RN RN bb Curtis Solorio, INDIRECT SALES EXEC-C INDIRECT SALES EXEC-Cla1 Carla Melara RN RN cg Zechariah Ibrahim MD MD sp3 Mili Claudio tw5 Corinne Corey RN RN vc1 Corrections: (The following items were deleted from the chart) 11/04 20:15 19:35 UA MICROSCOPIC+U.LAB.BRZ ordered. EDMS EDMS 20:15 19:35 URINALYSIS+U.LAB.BRZ ordered. EDMS EDMS 22:12 21:17 CatrachitaPrince roby sp3 la1 11/05 00:28 11/04 21:17 sp3 cg 11/05 01:00 00:28 209 lazaro
[2021-11-04 21:27] LABS: Albumin 3.4 g/dL (3.4-5.0); Bilirubin Direct 0.2 mg/dL (0-0.2); Bilirubin Total 0.6 mg/dL (0.2-1.0); Potassium 4.6 mmol/L (3.5-5.1); Protein, Total 7.8 g/dL (6.4-8.2); Troponin High Sensitivity 20.3 pg/mL (<58.9)
--- NOTE | 2021-11-04 21:41 | RAD REPORT ---
EXAM DESCRIPTION: RAD - Knee Left 2 View - 11/04/2021 9:21 pm CLINICAL HISTORY: PAIN COMPARISON: Knee Left 3 View dated 11/13/2019 FINDINGS: Moderate arthritic changes are present. The bones are moderately demineralized. No acute f ractures seen. Small joint effusion evident.
--- NOTE | 2021-11-04 21:42 | RAD REPORT ---
EXAM DESCRIPTION: RAD - Wrist Left 2 View - 11/04/2021 9:21 pm CLINICAL HISTORY: SMASH INJURY Pain COMPARISON: No comparisons FINDINGS: Intraarticular fracture of the distal radius is seen with moderate adjacent soft tissue sw elling. Fracture segments are moderately displaced. Ulnar styloid fracture is also present.
[2021-11-04] MEDS ORDERED: NA CHLORIDE 0.9% 2,000 ML ONE (21:46)
[2021-11-04] MEDS ORDERED: CEFEPIME 1 GM/VIAL ONE (21:46)
[2021-11-04] MEDS ORDERED: NA CHLORIDE 0.9% 500 ML ONE (21:46)
[2021-11-04] MEDS ORDERED: NA CHLORIDE 0.9% 100 ML IV ONE (21:47)
--- NOTE | 2021-11-04 22:29 | P.HP ---
Certification for Inpatient Patient admitted to: Inpatient With expected LOS: >2 Midnights Patient will require the following post-hospital care: None Practitioner: I am a practitioner with admitting privileges, knowledge of patient current condition, hospital course, and medical plan of care. 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 Patient apparently was not acting right on the phone, failure to check on her and found her lying on the ground convince her to come to the emergency department for evaluation. Patient very confused thinks her children are in third and fourth grade, they are grown. Patient was evaluated in the emergency department labs were significant for white blood cell count 16.5 hemoglobin 10.3 medical 31.2 creatinine 2.31 GFR 20 BUN 59 glucose 111 lactic acid 2.7 urinalysis 3+ leukoesterase urine microscopic greater than 50 bacteria. Patient with severe sepsis at this time from urinary tract infection. Patient also noted to have left wrist fracture which was reduced in the emergency department CT head C-spine noted an age indeterminate C4 transverse starr medial lateral possible fracture that is new from 2017. Patient without any pain in her neck full range of motion of neck. Family also states patient is unsafe to live by herself but very stubborn and they have not been able to convince her to go to a skilled facility. Will need to admit for further evaluation and management. Allergies No Known Allergies Allergy (Unverified 05/20/17 01:56) Home Medications: Aspirin [Aspirin EC 81 MG] 81 mg PO DAILY 05/25/17 Atorvastatin Calcium [Lipitor] 40 mg PO BEDTIME #30 tab 11/21/19 Cefuroxime Axetil [Cefuroxime] 500 mg PO BID #10 tab 11/21/19 Cyanocobalamin (Vitamin B-12) [Vitamin B-12] 1,000 mcg PO DAILY #30 capsule 11/21/19 Docusate [Colace Cap*] 100 mg PO DAILY #0 cap 11/21/19 Folic Acid 1 mg PO DAILY #30 tablet 11/21/19 Metoprolol Tartrate [Lopressor*] 25 mg PO BID 6AM 6PM #60 tab 11/21/19 Thiamine HCl [Vitamin B-1*] 100 mg PO DAILY #30 tablet 11/21/19 lisinopriL [Prinivil*] 5 mg PO DAILY #30 tab 11/21/19 - Past Medical/Surgical History Diabetic: No -: HTN -: CVA -: Alzheimer's/dementia -: 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 -: R knee replacement 2001 -: hip surgery Psychosocial/ Personal History: Patient currently lives at home alone - Family History Mother -: Other (see notes) Notes: arthritis - Social History Smoking Status: Never smoker Alcohol use: Yes CD- Drugs: No Caffeine use: Yes Place of Residence: Home Review of Systems is unable to be obtained (Confused) Physical Examination - Physical Exam General: Alert, In no apparent distress, Oriented x1 HEENT: Atraumatic, PERRLA, Other (Mucous membranes dry), EOMI, Sclerae nonicteric Neck: Supple, 2+ carotid pulse no bruit, No LAD, Without JVD or thyroid abnormality Respiratory: Clear to auscultation bilaterally, Normal air movement Cardiovascular: Regular rate/rhythm, Normal S1 S2 Capillary refill: <2 Seconds Gastrointestinal: Normal bowel sounds, No tenderness Musculoskeletal: Other (Bony deformity left wrist was reduced now in Ortho-Glass splint) Integumentary: No rashes Neurological: Normal speech, Normal strength at 5/5 x4 extr, Normal tone, Normal affect - Studies Laboratory Data (last 24 hrs) 11/04/21 20:05: WBC 16.50 H, Hgb 10.3 L, Hct 31.2 L, Plt Count 334 11/04/21 20:05: Sodium 139, Potassium 4.6, BUN 59 H, Creatinine 2.31 H, Glucose 111 H, Total Bilirubin 0.6, AST 45 H, ALT 31, Alkaline Phosphatase 81 Assessment and Plan - Plan Assessment: Severe sepsis secondary to UTI Acute renal failure Hypertension History of CVA Alzheimer's/dementia/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 Initial lactic acid mildly elevated will repeat. Blood pressure stable heart rate came down after fluids to less than 100. Acute renal failure: Nephrology consulted obtain renal ultrasound continue IV fluids. Repeat chemistry in the morning. Hypertension: Hold off on antihypertensive agents at this time. Patient does not take any medications at home currently. History of CVA: Patient not on any medications at home. 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 He reports that he has been trying to get patient to go to a SNF or assisted living facility for some time now but she is very stubborn. He reports that she is unable to care for herself safely at home, is very confused, change the locks on her doors to keep people out. He reports having to break into her house on multiple occasions for medical reasons, had to take her car keys away etc. director construction services consulted for additional assistance with dispo planning. Cannot likely discharge back home. DVT PPX: Heparin Code status: Full Discharge Plan: Home Plan to discharge in: 72 Hours - Advance Directives Does patient have a Living Will: No Does patient have a Durable POA for Healthcare: No - Code Status/Comfort Care Code Status Assessed: Yes (Full code) Critical Care: No Time Spent Managing Pts Care (In Minutes): 55
[2021-11-05] MEDS ORDERED: NA CHLORIDE 0.9% 1,000 ML IV SCH (01:03)
[2021-11-05] MEDS ORDERED: ONDANSETRON 4 MG/2 ML VIAL IV PRN (01:03)
[2021-11-05 02:57] LABS: Absolute Lymphocytes (CBC) 1.8 K/uL (0.7-4.9); Hematocrit 25.1 % (36.0-45.0); Lymphocytes % 15.5 % (15.3-44.8); MPV 7.2 fL (7.6-11.3)
[2021-11-05 03:20] VITALS: BMI 17.6
[2021-11-05 03:24] LABS: Albumin 2.4 g/dL (3.4-5.0); Bilirubin Total 0.3 mg/dL (0.2-1.0); Potassium 3.2 mmol/L (3.5-5.1); Protein, Total 5.7 g/dL (6.4-8.2); Thyroid Stimulating Hormone 0.6 uIU/mL (0.360-3.740); Uric Acid 6.5 mg/dL (2.6-6.0)
[2021-11-05 03:28] LABS: CKMB Creatine Kinase MB 11.9 ng/mL (1.0-3.6)
[2021-11-05] MEDS: NA CHLORIDE 0.9% 1,000 ML IV SCH ×3 (03:33→19:33)
--- NOTE | 2021-11-05 06:16 | P.PN ---
Date of Service: 11/05/21 Subjective: Patient somewhat frustrated and agitated this morning. Not exactly aware of where she is or what happened Stating she needs to leave and go home Able to de-escalate the situation Denies any pain, no shortness of breath ROS: 10 point ROS as noted above, otherwise negative Physical exam GEN: Alert, oriented to self only, NAD HEENT: Normal conjunctiva, sclera anicteric CV: Regular rate and rhythm, no edema Pulm: Nonlabored respirations on room air ABD: Soft, nontender, nondistended MSK: LLE externally rotated, L knee slightly swollen. 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
--- NOTE | 2021-11-05 07:50 | RAD REPORT ---
EXAM DESCRIPTION: RAD - Wrist Left 2 View - 11/04/2021 10:35 pm CLINICAL HISTORY: Post reduction COMPARISON: Wrist Left 2 View dated 11/04/2021 FINDINGS/IMPRESSION: Postreduction radiograph without significant change in alignment of the distal radial and ulnar fractures.
--- NOTE | 2021-11-05 07:52 | RAD REPORT ---
EXAM DESCRIPTION: RAD - Pelvis - 11/04/2021 10:35 pm CLINICAL HISTORY: fall COMPARISON: Pelvis dated 11/13/2019; Chest Abd Pelvis Wo Con dated 11/04/2021; Head C Spine Mpr Wo Con dated 11/04/2021 FINDINGS: Left-sided comminuted intertrochanteric hip fracture. No other fractures identified both f emoral heads appear located on the single views. IMPRESSION: Left intertrochanteric hip fracture.
[2021-11-05] MEDS: CEFEPIME 1 GM in NA CHLORIDE 0.9% 100 ML IV SCH (09:00)
[2021-11-05] MEDS: HEPARIN 5000 UNIT/ML 1 ML VIAL SQ SCH ×2 (09:01→20:13)
[2021-11-05 09:20] LABS: RBC Red Blood Cell Count 2.77 M/uL (3.86-4.86)
[2021-11-05 09:31] LABS: Ferritin 173.8 ng/mL (8-388)
[2021-11-05 10:43] LABS: Protime INR 0.99
[2021-11-05] MEDS ORDERED: TRANEXAMIC ACID 1,000 MG in NA CHLORIDE 0.9% 50 ML IV SCH (12:00)
--- NOTE | 2021-11-05 13:02 | RAD REPORT ---
EXAM DESCRIPTION: CT - Chest Abd Pelvis Wo Con - 11/05/2021 3:35 am CLINICAL HISTORY: 81 years Female fall. TECHNIQUE: CT imaging of the chest, abdomen and pelvis without intravenous contrast administration. Sagittal and coronal reconstructed images were performed. The CT study is performed according to ALAR A (as low as reasonably achievable) or ALARA/IMAGE GENTLY, with automatic adjustment of mA and/or kV according to patient size. Performed on: 11/04/2021 at 11:45 PM Comparisons: CT abdomen and pelvis without contrast performed on 11/13/2019 FINDINGS: CHEST: Lungs: The lungs are well-expanded. There is minimal groundglass opacification in the posterior left lower lobe which may be due to atelectasis, fibrosis and/or contusion. There is minimal parenchymal s carring in the right lung apex. Heart: The heart is normal in size. There is no pericardial effusion. There are mild coronary art shira calcifications. Mediastinum: The mediastinum is unremarkable. The mediastinal vessels are normal in caliber and con tour. There are mild atherosclerotic calcifications along the thoracic aorta. Bones: There is a questionable nondisplaced acute fracture of the left 10th rib. There are a couple o f scattered old bilateral rib fractures. There is mild compression of the T8 vertebral body, likely c hronic in nature. Soft tissues: No focal soft tissue abnormalities are identified. Lymphadenopathy: No pathologic hilar, mediastinal or axillary lymphadenopathy is identified. ABDOMEN/PELVIS: Liver: The liver is normal in size and configuration. There are a couple of stable hepatic cysts. The largest measures approximately 3.1 x 3.1 cm. Liver attenuation is otherwise within normal limits. Spleen: The spleen is normal is size, configuration and attenuation. Gallbladder and bile duct: The gallbladder is well distended and unremarkable. There is no biliary ductal dilatation. Pancreas: The pancreas is grossly normal in size and configuration. Adrenal Glands: The adrenal glands are normal in size and configuration. Kidneys: The kidneys are normal in size and configuration. There is no evidence of hydronephrosis. Th ere is no evidence of nephrolithiasis. No definite solid or cystic renal mass lesions are identified. Stomach: The stomach is markedly distended with food contents and fluid. There is no definite hiatal hernia. Bowel: The bowel gas pattern is non specific and non obstructive. There appears to be colonic wall th ickening involving a loop of colon in the posterior right hemipelvis. Again demonstrated is a right l ower ventral abdominal wall hernia containing nondilated small bowel loops. Appendix: The appendix is not clearly delineated on this examination. Free air: There is no evidence of free air. Free fluid: There is no evidence of free fluid. Vasculature: The aorta is normal in caliber and contour. There are moderate atherosclerotic calcifica tions along the abdominal aorta and proximal major branch vessels. The inferior vena cava is grossly unremarkable. Lymphadenopathy: No pathologic lymphadenopathy is identified. Bladder: The bladder is incompletely distended. There appears to be bladder wall thickening which may be related to incomplete distention of the bladder. Reproductive: The uterus appears to be surgically absent. Bones: There is a comminuted intertrochanteric fracture of the proximal left femur with acute angulat ion of the fracture fragments. There is trace anterolisthesis of L4 relative to L5 and L3 relative to L4. There have been progressive degenerative changes of the lumbar spine since the prior study. Ther e is a large Schmorl's node along the inferior endplate of L3 and there are are pars defects bilatera lly at L4. There are vacuum discs at multiple levels. Incidentally noted, there is also an intra-nitin cular fracture through the distal left radial metaphysis. Soft tissues: There is soft tissue swelling surrounding the proximal left femur adjacent to the fract ure site. IMPRESSION: CT CHEST: 1. There is a questionable nondisplaced acute fracture of the left 10th rib. There are a couple of scattered old bilateral rib fractures. 2. There is minimal groundglass opacification in the posterior left lower lobe which may be due to atelectasis, fibrosis and/or contusion. Otherwise, no evidence of acute intrathoracic disease. 3. There is mild compression of the T8 vertebral body, likely chronic in nature. CT ABDOMEN AND PELVIS: 1. Comminuted intertrochanteric fracture of the proximal left femur with acute angulation of the fr acture fragments with surrounding soft tissue swelling. 2. Incidentally noted is an intra-articular fracture through the distal left radial metaphysis. The re are remote postsurgical changes of the distal right radius. 3. There have been progressive degenerative changes of the lumbar spine since the prior study. Ther e is a large Schmorl's node along the inferior endplate of L3. 4. Pars defects bilaterally at L4 with trace anterolisthesis of L4 relative to L5 and L3 relative t o L4. 5. Again demonstrated is a right lower ventral abdominal wall hernia containing nondilated small aleida wel loops. 6. There appears to be colonic wall thickening involving a loop of colon in the posterior right hem ipelvis. This is nonspecific and could be related to inflammatory bowel disease. 7. There appears to be bladder wall thickening which may be related to incomplete distention of the bladder. An underlying inflammatory process is not entirely excluded. 8. There are a couple of stable hepatic cysts. 9. Markedly distended stomach with food contents and fluid. Electronically signed by: Kita Espinosa DO 11/05/2021 12:35 AM MACHINE CUTTER Due to temporary technical issues with the PACS/Fluency reporting system, reports are being signed by the in house radiologists without review as a courtesy to insure prompt reporting. The interpreting radiologist is fully responsible for the content of the report.
--- NOTE | 2021-11-05 13:14 | RAD REPORT ---
EXAM DESCRIPTION: MRI - C Spine Wo Cont- 11/05/2021 12:37 pm CLINICAL HISTORY: poss c5 starr fracture on ct Neck pain, radiculopathy, trauma COMPARISON: Head C Spine Mpr Wo Con dated 11/04/2021 FINDINGS: There is increased T2 signal within the T1 vertebral body likely representing vertebral aleida dy hemangioma. 3 mm degenerative anterolisthesis of C4 on 5 and 2-3 mm degenerative anterolisthesis of C5 on 6 is pr esent. Posterior osteophyte formation is present at these levels. The craniocervical junction is normal. C2-3 level: Small posterior osteophyte/ disc complex is present. C3-4 level: Broad-based posterior disc protrusion is present measuring 3 mm. Left-sided facet hypertr ophy is present narrowing the left exit foramen. C4-5 level: Broad-based disc/ osteophyte complex is present with facet hypertrophy bilaterally. Mild attenuation of the anterior subarachnoid space. C5-6 level: Moderate posterior osteophyte/disc complex is present attenuating the anterior subarachno id space. Right-sided uncovertebral spurring mildly narrows the right exit foramen. No edema signal s een in the region of the left transverse foramen. C6-7 level: Small to moderate posterior osteophyte/ disc complex is present attenuating the inter sub arachnoid space and flattening the anterior cord. C7-T1 level: Small central disc protrusion is present measuring 3 mm, is mildly attenuates the anteri or subarachnoid space. Cervical cord is normal in size and signal. IMPRESSION: There is no significant edema signal seen in the left C5 transverse foramen. This would suggest that the lucency seen on recent CT are related to previous trauma. Moderate lower cervical degenerative changes are present with mild central canal narrowing as kristy shaw
--- NOTE | 2021-11-05 13:49 | RAD REPORT ---
EXAM DESCRIPTION: US - Renal Ultrasound-Complete - 11/05/2021 1:03 pm CLINICAL HISTORY: ARF Flank pain COMPARISON: No comparisons FINDINGS: The mild kidney is slightly increased echogenicity. The right kidney measures 9.1 x 4.0 x 3.5 cm. No hydronephrosis, focal mass or perinephric fluid. The left kidney measures 8.1 x 3.9 x 3.7 cm. No hydronephrosis, focal mass or perinephric fluid. The urinary bladder is incompletely distended without gross abnormality seen. IMPRESSION: Slight increased echogenicity noted in the right kidney suggests mild medical renal dise ase. No hydronephrosis.
--- NOTE | 2021-11-05 15:03 | ECHO ---
HEIGHT: 5 ft 4 in WEIGHT: 102 lb 8 oz DATE OF STUDY: 11/05/[address]: Asad Kwong MD 2-DIMENSIONAL: YES M.MODE: YES DOPPLER: YES COLOR FLOW: YES TDS: NO PORTABLE: NO DEFINITY: NO BUBBLE STUDY: NO DIAGNOSIS: PREOP CARDIAC HISTORY: CATHERIZATION: NO SURGERY: NO PROSTHETIC VALVE: NO PACEMAKER: NO MEASUREMENTS (cm) DIASTOLIC (NORMALS) SYSTOLIC (NORMALS) IVSd 0.8 (0.6-1.2) LA Diam 1.7 (1.9-4.0) LVEF 68% LVIDd 2.4 (3.5-5.7) LVIDs 1.5 (2.0-3.5) %FS 36% LVPWd 0.9 (0.6-1.2) Ao Diam 3.0 (2.0-3.7) 2 DIMENSIONAL ASSESSMENT: RIGHT ATRIUM: NORMAL LEFT ATRIUM: NORMAL RIGHT VENTRICLE: NORMAL LEFT VENTRICLE: NORMAL TRICUSPID VALVE: NORMAL MITRAL VALVE: MITRAL ANNULAR CALCIFICATION PULMONIC VALVE: NORMAL AORTIC VALVE: SCLEROSIS PERICARDIAL EFFUSION: NONE AORTIC ROOT: NORMAL LEFT VENTRICULAR WALL MOTION: NORMAL DOPPLER/COLOR FLOW: MILD TRICUSPID REGURGITATION. COMMENTS: MILD TRICUSPID REGURGITATION. MITRAL ANNULAR CALCIFICATION. NORMAL LEFT VENTRICULAR SIZE AND FUNCTION. AORTIC SCLEROSIS WITH NO STENOSIS. TECHNOLOGIST: Grant KAUFMAN
[2021-11-05 17:18] LABS: Hematocrit 19.7 % (36.0-45.0); MPV 6.5 fL (7.6-11.3)
[2021-11-05] MEDS ORDERED: NA CHLORIDE 0.9% 250 ML IV SCH (18:00)
[2021-11-05] MEDS ORDERED: NA CHLORIDE 0.9% 250 ML ONE (21:39)
[2021-11-06] MEDS ORDERED: NA CHLORIDE 0.9% 250 ML ONE (01:16)
[2021-11-06] MEDS: NA CHLORIDE 0.9% 1,000 ML IV SCH ×5 (04:32→19:26)
--- NOTE | 2021-11-06 04:58 | CON ---
Date of Consultation: 11/05/2021 History Of Present Illness: This is my first time seeing this patient to my knowledge. She is an 81 -year-old female, who unfortunately fell injuring her left side. She was seen and examined in the em ergency department where she was ruled out for other injuries; however, there was some concern about her cervical spine and she is in a C-collar. Otherwise, x-rays demonstrate a left intra-articular di splaced distal radius fracture that underwent closed reduction now in a better position. Also seen i s an ulnar styloid fracture. Also, x-rays demonstrate a significantly displaced left intertrochanter ic fracture. Physical Examination: All bones and joints are palpated without pain or crepitation with the exception of left wrist and le ft hip. She is complaining of some discomfort in both of her ankles, however, there is no swelling t here and no significant pain with palpation. She is neurovascularly intact to her left hand. There is no sign of an open injury. Assessment And Plan: At this time, although the patient reportedly has some degree of dementia, she appears to understand what I am telling her at least this morning quite well. She says she understan ds things as presented and is not disagreeable to operative intervention for both the left wrist and left hip. There is a possibility of non-operative treatment of left wrist could be entertained, deloris lane given that she does have polytrauma and the significantly displaced nature at original presentati on, I think it would be the best course of action to proceed with open reduction and internal fixatio n of the left distal radius at the same time as fixation of left intertrochanteric fracture. This avila s been discussed with her in detail and all of her questions have been answered. She is going to hav e an MRI of her neck done today. Also, she is going to be seen by Cardiology and have an echocardiog bulmaro today. We will ask the nurses to make her n.p.o. after midnight and we will speak with the famil y as needed and were requested and plans on completing this tomorrow at 7:30. All of her questions have otherwise been invited and answered. /[email or web address] Voice ID: [id number] Report ID: [id number]
--- NOTE | 2021-11-06 06:16 | P.PN ---
Date of Service: 11/06/21 Subjective: hgb decreased yesterday, no obvious bleed received 2u PRBC, repeat hgb pending, otherwise medically optimized to proceed with surgery per cardiology echo done yesterday: normal Without any complaints this morning, to to the OR today ROS: 10 point ROS as noted above, otherwise negative Physical exam GEN: Alert, oriented to self only, NAD HEENT: Normal conjunctiva, sclera anicteric CV: Regular rate and rhythm, no edema Pulm: Nonlabored respirations on room air ABD: Soft, nontender, nondistended MSK: LLE externally rotated, L knee slightly swollen. 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
[2021-11-06 06:22] LABS: Absolute Lymphocytes (CBC) 2.2 K/uL (0.7-4.9); Hematocrit 31.4 % (36.0-45.0); Lymphocytes % 27.8 % (15.3-44.8); MPV 6.7 fL (7.6-11.3); RBC Red Blood Cell Count 3.48 M/uL (3.86-4.86)
[2021-11-06 06:36] LABS: Albumin 1.9 g/dL (3.4-5.0); Bilirubin Total 0.4 mg/dL (0.2-1.0); Potassium 3.5 mmol/L (3.5-5.1); Protein, Total 5.2 g/dL (6.4-8.2)
[2021-11-06] MEDS ORDERED: SUCCINYLCHOLINE 20 MG/ML (10 ML) IV ONE (07:25)
[2021-11-06] MEDS ORDERED: ROCURONIUM 50 MG/5 ML VIAL IV ONE ×2 (07:34→09:35)
[2021-11-06] MEDS ORDERED: FENTANYL CITR 250 MCG/5 ML ONE (07:34)
[2021-11-06] MEDS ORDERED: propofoL 200 MG/20 ML VIAL IV ONE (07:34)
[2021-11-06] MEDS ORDERED: CEFAZOLIN SODIUM 1 GM/VIAL ONE (07:48)
[2021-11-06] MEDS: CEFEPIME 1 GM in NA CHLORIDE 0.9% 100 ML IV SCH (08:19)
[2021-11-06] MEDS ORDERED: EPINEPHRINE/PF 1 MG/ML AMP ONE (08:35)
[2021-11-06] MEDS ORDERED: Ringers Lactate 1,000 ML IV ONE (08:45)
[2021-11-06] MEDS ORDERED: GLYCOPYRROLATE 0.2 MG/ML SYR ONE (11:04)
[2021-11-06] MEDS ORDERED: NEOSTIGMINE 1 MG/ML -5 ML ONE ×2 (11:09→11:28)
--- NOTE | 2021-11-06 12:22 | RAD REPORT ---
EXAM DESCRIPTION: RAD - Hip In Or - 11/06/2021 12:06 pm CLINICAL HISTORY: Femoral fracture FINDINGS: Fluoroscopy time 1.9 minutes. 10 fluoroscopic spot images obtained Surgery performed by Dr. Figueroa Compression screw and intramedullary adrianna affix a femoral fracture
--- NOTE | 2021-11-06 12:25 | RAD REPORT ---
EXAM DESCRIPTION: RAD - Fluoroscopy >1 Hr - 11/06/2021 12:06 pm CLINICAL HISTORY: Radial fracture FINDINGS: Sideplate and screws affix a radial fracture. Six intraoperative fluoroscopic spot images obtained. Surgery performed by Dr. Figueroa Fluoroscopy time 0.9 minutes
--- NOTE | 2021-11-06 14:55 | PN ---
Date of Progress Note: 11/06/2021 I saw Ms. Washington for cardiac clearance for surgery by Dr. Figueroa. I cleared the patient for nolan rgshira. She does not have any cardiac issues. Echocardiogram is fairly normal. EKG is fairly normal . The patient underwent left proximal femur fracture and left distal radius fracture surgery without any complication. She remains in sinus rhythm. No evidence of congestive heart failure. Anemia an d hypokalemia remained an issue and being handled by her primary care physician. Her creatinine is b ack to normal. I will be available for questions if the need arises. Continue present regimen and e xcellent care. NB/MODL Voice ID: [id number] Report ID: [id number]
[2021-11-06] MEDS: MORPHINE 2 MG/ML SYR IV PRN (19:25)
--- NOTE | 2021-11-06 19:40 | CON ---
Date of Consultation: 11/05/2021 The patient was admitted to Dr. Kwong status post fall, hip fracture on 11/04/2021. I saw the patien t on 11/05/2021. Reason For Consultation: Cardiac clearance. History Of Present Illness: Ms. Rodriguez is 81, fairly healthy for her age, came in with hip fract ure, altered mental status, has a history of dementia and UTI. She was found on the floor by the fam raymond. Past Medical History: Includes CVA and hypertension. Allergies: NONE. Review of Systems: Negative. Social History: Negative. Family History: Noncontributory. Medications: At home are none. Physical Examination: Vital Signs: Stable, afebrile, sinus rhythm. HEENT: Negative. Neck: Supple. No bruit. Chest: Clear to auscultation and percussion. Cardiac: Regular rhythm and rate. No murmurs, gallops, or rubs. Abdomen: Benign. Extremities: No clubbing, cyanosis, or edema. Diagnostic Data: Creatinine 1.77. Hemoglobin was 8.1. Potassium was 3.2. High sensitivity troponi n was normal. May have had a UTI on urinalysis. Her chest x-ray was normal. Echocardiogram which w as done before clearance showed an ejection fraction of 68% with aortic sclerosis, no stenosis, brendan l wall motion. Impression And Plan: Ms. Rodriguez is 81, has UTI, dementia, hip fracture, fairly unremarkable EKG, chest x-ray is normal, her echocardiogram is fairly unremarkable. She does not have any cardiac sym ptoms. She does not have any clinical CHF or CAD, and I am comfortable with her going to surgery by Dr. Figueroa. I will be available for questions if the need arises. She is at low risk. Her anemi a needs to be corrected. Her potassium needs to be corrected. NB/MODL Voice ID: [id number] Report ID: [id number]
[2021-11-06] MEDS: MELATONIN 5 MG TABLET PO PRN (22:16)
--- NOTE | 2021-11-06 22:49 | OP ---
Date of Procedure: 11/06/2021 Surgeon: Moreno Figueroa MD Postoperative Diagnosis: Left comminuted highly displaced intertrochanteric fracture. Postoperative Diagnosis: Left comminuted highly displaced intertrochanteric fracture. Procedure: Left intertrochanteric fracture, closed reduction with intramedullary adrianna fixation. Estimated Blood Loss: 50 cc. Complications: There were no complications. Pathology Specimen: No pathology specimen sent. Indications For Operation: Ms. Washington is an 81-year-old female, who unfortunately fell injuring h er left hip and left wrist. She also has an operation of her left wrist which follows this dictated separately. For indications for left hip, she was seen in the emergency department. She was found t o be ruled out for other injuries other than the wrist and hip. She does have an effusion of the kne e. However, x-rays of the knee demonstrate significant arthritis. X-ray of the hip demonstrates a s everely displaced left intertrochanteric fracture. Risks, benefits, and alternatives discussed with both the patient as well as the family regarding this fracture and methods of treating it. They stat es they understand things as presented and wished to proceed. Description Of Procedure: The patient was taken to the operating room and placed in supine position. General anesthesia was obtained by staff. Following this, she was then placed on the fracture tabl e where she was appropriately positioned using the traction frame. It should be noted that she does have some scoliotic curvature of the back which makes positioning somewhat difficult. Also it should be noted that despite fairly significant traction on the hip as well as otherwise appropriate positi oning, we were not able to place the medial aspect of the proximal femur abutting the medial aspect o f the more distal fracture portion. Decision was made to place this very similarly to a position we would find in a molina osteotomy which is known to provide stability and unstable intertrochanteric fractures and the decision was to start the adrianna more medially than normal in the proximal fragment. After this, we then prepped and draped in usual sterile fashion and a longitudinal incision was made in the region of the greater trochanter. This was made slightly lower as the normal with the thought that we may need to have access to the actual fracture site. However, this was not pursued. An inc ision was made in the fascia and a starting awl was then used slightly more medially normal. This al lowed for passage of the guide adrianna. The guide adrianna was then used to perform as a guide with a hand re amer. After this, a size 9, 125-degree fixed nail was then placed to appropriate depth. This was se cured with 2 cephalomedullary screws as well as a distal interlocking screw. The wounds were then ir rigated. The fascia was closed and the skin was closed using Vicryl sutures, followed by natasha. S he was then placed in Aquacel dressing. She was then moved to a secondary table where the left upper extremity is positioned. A well-padded tourniquet was placed on superior left arm. The left upper extremity was then prepped and draped in usual sterile fashion for the procedure and the procedure fo r the wrist will be further detailed in the next operative report. CRESCENCIO Voice ID: [id number] Report ID: [id number]
--- NOTE | 2021-11-06 22:49 | OP ---
Date of Procedure: 11/06/2021 Surgeon: Moreno Figueroa MD Preoperative Diagnosis: Left displaced intra-articular comminuted distal radius fracture. Postoperative Diagnosis: Left displaced intra-articular comminuted distal radius fracture. Procedure: Left distal radius open reduction and internal fixation using the Acumed [address]ing set. Estimated Blood Loss: Less than 10 cc. Complications: There were no complications. Pathology Specimen: No pathology specimen sent. Indication For Operation: Ms. Dominik Rodriguez unfortunately fell injuring her left lower extremi ty with a comminuted and highly displaced intertrochanteric fracture, which has just been operated on and now for the second operation for this polytrauma patient of the left distal radius. The left di stal radius is found to be highly comminuted and displaced. Underwent a closed reduction in the [facility] department where its position was somewhat improved. Given the comminuted nature as well as po lytrauma, decision was made to treat this with open reduction and internal fixation. Risks, benefits , and alternatives of this were discussed with the patient and family. They state they understand th ings as presented and wished to proceed. Description Of Procedure: Patient was taken to the operating room and placed in supine position. Alfredo zepeda has previously been under general anesthesia for her hip surgery and was transferred to a normal op erative bed with a hand table. A well-padded tourniquet was placed on superior left arm. Left upper extremity was then prepped and draped in the usual sterile fashion for procedure. After this, a sta ndard volar approach of incision was then taken down carefully through skin and soft tissues. Meticu lous hemostasis was maintained using bipolar electrocautery. This led down to the flexor carpi radia lis tendon, which was retracted radialward to protect the radial artery. After this, the underlying sheath of the flexor carpi radialis was exploited and the muscle belly of the flexor pollicis longus was exposed and shifted ulnarward to protect the median nerve. This led to the pronator quadratus, w hich was divided at its midsubstance and gently moved off the radius, which allows for visualization of the highly comminuted intra-articular distal radius fracture. A combination of closed and open te chniques were then used to reduce this to essentially anatomic position. After this was performed, t he plate has been placed in standard position with the head being slightly angled radialward to perha ps give better fixation into the radial styloid. The only thing, which would be changed from absolut le normal with the use of this plate is that the most proximal screw was not filled as this was slig htly off center. The other 2 screws were quite good and it is felt that this screw may be unicortica l and decided to be left open. After this, the wound was then copiously irrigated and the skin was c losed using interrupted nylon sutures as well as horizontal mattress nylon suture. She was then plac ed in a well-padded sterile dressing as well as a volar splint. She was awakened and taken to recove ry room in good condition. No complications. /VENKATESH Voice ID: [id number] Report ID: [id number]
[2021-11-07] MEDS: NA CHLORIDE 0.9% 1,000 ML IV SCH ×2 (03:19→11:33)
--- NOTE | 2021-11-07 06:06 | P.PN ---
Date of Service: 11/07/21 Subjective: s/p OR yesterday no acute events overnight minimal discomfort no SOB, no nausea/vomiting, no BM villarreal in place ROS: 10 point ROS as noted above, otherwise negative Physical exam GEN: Alert, orientedx2, NAD HEENT: Normal conjunctiva, sclera anicteric CV: Regular rate and rhythm, no edema Pulm: Nonlabored respirations on room air ABD: Soft, nontender, nondistended MSK: LLE surgical dressing c/d/i, sensation intact distally. 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 Severe sepsis secondary to UTI, complicated by metabolic encephalopathy Comminuted intertrochanteric left femur fracture Distal left radial fracture s/p closed reduction h/o fall Suspect patient fell at home, likely due to metabolic encephalopathy secondary to UTI Daughter states patient has fallen multiple times Urine growing enterococcus and providencia, cefepime changed to levaquin per sensitivities advance diet as tolerated, wean fluids received 2u PRBC on 11/05 echo: normal Villarreal catheter in place, can likely remove today/tomorrow PT consulted Anemia Multifactorial, fractures, iron deficiency, dilution, surgery received 2u PRBC on 11/05 down to 7.7 on 11/07, transfuse 1 additional unit no evidence of obvious /ongoing bleed, surgical site with no palpable hematoma Hypertension History of CVA Alzheimer's/dementia/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
[2021-11-07 06:16] LABS: Absolute Lymphocytes (CBC) 1.6 K/uL (0.7-4.9); Hematocrit 23.6 % (36.0-45.0); Lymphocytes % 25.4 % (15.3-44.8); MPV 6.5 fL (7.6-11.3); RBC Red Blood Cell Count 2.64 M/uL (3.86-4.86)
[2021-11-07] MEDS ORDERED: NA CHLORIDE 0.9% 250 ML IV SCH (07:00)
[2021-11-07] MEDS: CEFEPIME 1 GM in NA CHLORIDE 0.9% 100 ML IV SCH (08:37)
[2021-11-07] MEDS ORDERED: ENOXAPARIN 40 MG/0.4 ML SQ SCH (09:00)
[2021-11-07 09:29] LABS: BUN Blood Urea Nitrogen 12 mg/dL (7-18); Bicarbonate 22 mmol/L (21-32); Creatine Phosphokinase 740 U/L (26-192); Glucose Level 95 mg/dL (74-106); Potassium 3.6 mmol/L (3.5-5.1); Sodium Level 141 mmol/L (136-145)
[2021-11-07] MEDS ORDERED: NA CHLORIDE 0.9% 250 ML ONE (10:07)
[2021-11-07] MEDS ORDERED: FUROSEMIDE 20 MG/ 2ML VIAL IV ONE (12:00)
--- NOTE | 2021-11-07 13:30 | PN ---
Date of Progress Note: 11/07/2021 The patient is seen today. She appears to be relatively active. She is eating her lunch with her fa leanne member present. She says she does not have any complaints. She does have full feeling of her l eft hand. There are some bruising and swelling; however, she is able to move her fingers easily. He r left hip dressing is clean, dry, and intact without sign of problems. Review of her chart reveals that she now has a hemoglobin of 7.7 and is receiving an additional unit of blood. She has not reall y been up with physical therapy yet. She appears to be doing fairly well and all of her questions as well as her family have been answered. /VENKATESH Voice ID: [id number] Report ID: [id number]
[2021-11-07] MEDS: Levofloxacin 750mg IV 750 MG/150 ML BAG IV SCH (14:49)
[2021-11-07 16:22] LABS: Magnesium 1.7
[2021-11-07] MEDS: ENOXAPARIN 40 MG/0.4 ML SQ SCH (17:00)
[2021-11-07 17:42] LABS: Hematocrit 36.4 % (36.0-45.0)
[2021-11-07] MEDS: MELATONIN 5 MG TABLET PO PRN (21:11)
[2021-11-07] MEDS: MORPHINE 2 MG/ML SYR IV PRN (23:29)
[2021-11-07 23:59] VITALS: O2SAT 98
[2021-11-08 05:52] LABS: Hematocrit 33.8 % (36.0-45.0); Lymphocytes % 24.4 % (15.3-44.8); MPV 6.6 fL (7.6-11.3); RBC Red Blood Cell Count 3.82 M/uL (3.86-4.86)
--- NOTE | 2021-11-08 06:03 | P.PN ---
Date of Service: 11/08/21 Subjective: Denies much pain this morning Confused, states she does not understand why she cannot walk. She remembers that she has a left wrist fracture, did not remember where she had a femur fracture and underwent surgery ROS: 10 point ROS as noted above, otherwise negative Physical exam GEN: Alert, orientedx2, NAD, confused HEENT: Normal conjunctiva, sclera anicteric CV: Regular rate and rhythm, no edema Pulm: Nonlabored respirations on room air ABD: Soft, nontender, nondistended MSK: LLE surgical dressing c/d/i, sensation intact distally. 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 Severe sepsis secondary to UTI, complicated by metabolic encephalopathy Comminuted intertrochanteric left femur fracture Distal left radial fracture s/p closed reduction h/o fall Suspect patient fell at home, likely due to metabolic encephalopathy secondary to UTI Daughter states patient has fallen multiple times Urine growing enterococcus and providencia, cefepime changed to levaquin per sensitivities advanced diet as tolerated received 2u PRBC on 11/05, 1u PRBC on 11/07 echo: normal Ryan catheter in place, can likely remove today/tomorrow awaiting PT eval Anemia Multifactorial, fractures, iron deficiency, dilution, surgery received 2u PRBC on 11/05, 1uPRBC on 11/07 for HgB: 7.7 no evidence of obvious /ongoing bleed, surgical site with no palpable hematoma Hypertension History of CVA Alzheimer's/dementia/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
[2021-11-08 06:11] LABS: BUN Blood Urea Nitrogen 15 mg/dL (7-18); Bicarbonate 24 mmol/L (21-32); Glucose Level 114 mg/dL (74-106); Potassium 3.5 mmol/L (3.5-5.1); Sodium Level 141 mmol/L (136-145)
[2021-11-08 09:14] LABS: Urine Blood 3+ (Negative); Urine Glucose Negative (Negative); Urine Protein 3+ (Negative); Urine Specific Gravity >=1.030 (1.005-1.030); Urine pH 5.5 (5.0-7.0)
[2021-11-08] MEDS: MORPHINE 2 MG/ML SYR IV PRN ×3 (09:43→21:15)
--- NOTE | 2021-11-08 11:36 | EKG ---
Test Date: 2021-11-04 Test Time: 20:35:42 Business Development Consultant: CASE MEASUREMENT RESULTS: Intervals: Rate: 99 DC: 166 QRSD: 76 QT: 348 QTc: 446 [place]: P: DC: 166 QRS: 78 T: 65 INTERPRETIVE STATEMENTS: Normal sinus rhythm Nonspecific ST and T wave abnormality Abnormal ECG Compared to ECG 11/04/2021 20:31:17 ST (T wave) deviation now present Electronically Signed On 11-08-21 11:30:56 HEATER INSTALLER by Dakota Sands
--- NOTE | 2021-11-08 11:36 | EKG ---
Test Date: 2021-11-04 Test Time: 20:31:17 Rn Transition: CASE MEASUREMENT RESULTS: Intervals: Rate: 0 AR: QRSD: 0 QT: 0 QTc: 0 [place]: P: AR: QRS: 0 T: 0 INTERPRETIVE STATEMENTS: No QRS complexes found, no ECG analysis possible Compared to ECG 11/13/2019 20:53:20 Sinus rhythm no longer present Electronically Signed On 11-08-21 11:30:57 BUFFER INFLATED PAD by Dakota Sands
[2021-11-08 13:18] LABS: Magnesium 2.2
[2021-11-08] MEDS: ENOXAPARIN 40 MG/0.4 ML SQ SCH (16:26)
[2021-11-09 05:29] LABS: Absolute Lymphocytes (CBC) 1.9 K/uL (0.7-4.9); Hematocrit 32.6 % (36.0-45.0); Lymphocytes % 28.1 % (15.3-44.8); MPV 6.2 fL (7.6-11.3); RBC Red Blood Cell Count 3.64 M/uL (3.86-4.86)
[2021-11-09 05:38] LABS: BUN Blood Urea Nitrogen 18 mg/dL (7-18); Bicarbonate 25 mmol/L (21-32); Glucose Level 106 mg/dL (74-106); Potassium 3.8 mmol/L (3.5-5.1); Sodium Level 142 mmol/L (136-145)
[2021-11-09] MEDS: MEDIHONEY 44 ML TOPICAL TUBE TOP SCH (09:33)
[2021-11-09] MEDS: MORPHINE 2 MG/ML SYR IV PRN ×3 (09:34→22:46)
[2021-11-09] MEDS: Levofloxacin 750mg IV 750 MG/150 ML BAG IV SCH (09:34)
--- NOTE | 2021-11-09 14:54 | P.PN ---
Subjective Date of Service: 11/09/21 Primary Care Provider: None Chief Complaint: UTI, sepsis, ARF Patient has no new complaint. She has not been able to get out of bed yet. Physical Examination - Vital Signs Temperature: 98.8 F Blood Pressure: 171/78 Pulse: 80 Respirations: 18 Pulse Ox (%): 96 Assessment And Plan - Plan Physical exam GEN: Alert, orientedx2, NAD, confused HEENT: Normal conjunctiva, sclera anicteric CV: Regular rate and rhythm, no edema Pulm: Nonlabored respirations on room air. Clear to auscultation bilaterally ABD: Soft, nontender, nondistended MSK: LLE surgical dressing c/d/i. 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 History of multiple falls. Urine grew enterococcus and providencia, cefepime changed to levaquin. Continue Levaquin Diet as tolerated echo: normal Ryan catheter in place. Discontinue once patient is more active and mobile. Continue PT. Anemia Multifactorial, fractures, iron deficiency, dilution, surgery Status post 3 units PRBC for acute blood loss anemia. no evidence of obvious /ongoing bleed, surgical site with no palpable hematoma. 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 VTE: lovenox Code: Full Dispo: [facility]
[2021-11-09] MEDS: ENOXAPARIN 40 MG/0.4 ML SQ SCH (16:05)
[2021-11-09] MEDS: MELATONIN 5 MG TABLET PO PRN (22:46)
[2021-11-10] MEDS: MORPHINE 2 MG/ML SYR IV PRN ×3 (03:00→20:41)
[2021-11-10 06:20] LABS: BUN Blood Urea Nitrogen 21 mg/dL (7-18); Bicarbonate 27 mmol/L (21-32); Glucose Level 119 mg/dL (74-106); Potassium 3.8 mmol/L (3.5-5.1); Sodium Level 140 mmol/L (136-145)
[2021-11-10] MEDS: MEDIHONEY 44 ML TOPICAL TUBE TOP SCH (09:00)
[2021-11-10 09:13] LABS: Hematocrit 33.1 % (36.0-45.0); Lymphocytes % 29.3 % (15.3-44.8); MPV 6.7 fL (7.6-11.3); RBC Red Blood Cell Count 3.68 M/uL (3.86-4.86)
--- NOTE | 2021-11-10 13:36 | P.PN ---
Subjective Date of Service: 11/10/21 Primary Care Provider: None Chief Complaint: UTI, sepsis, ARF Patient complaining of left knee pain. She has been eating well. Physical Examination - Vital Signs Temperature: 98.2 F Blood Pressure: 147/70 Pulse: 78 Respirations: 16 Pulse Ox (%): 96 - Studies Microbiology Data (last 24 hrs): 11/04/21 22:20 Blood - Blood Aerobic Blood Culture - Final No growth in 5 days. 11/04/21 22:20 Blood - Blood Anaerobic Blood Culture - Final No growth in 5 days. 11/04/21 22:04 Blood - Blood Aerobic Blood Culture - Final No growth in 5 days. 11/04/21 22:04 Blood - Blood Anaerobic Blood Culture - Final No growth in 5 days. Assessment And Plan - Plan Physical exam GEN: Alert, orientedx2, NAD, confused HEENT: Normal conjunctiva, sclera anicteric CV: Regular rate and rhythm, no edema Pulm: Nonlabored respirations on room air. Clear to auscultation bilaterally ABD: Soft, nontender, nondistended MSK: LLE surgical dressing c/d/i. LUE: wrist in short arm splint. 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 History of multiple falls. Urine grew enterococcus and providencia, cefepime changed to levaquin. Continue Levaquin Diet as tolerated echo: normal Ryan catheter in place. Discontinue once patient is more active and mobile. Continue PT. Left knee pain and swelling Obtain CT of left knee to assess for fracture or effusion. Pain management as needed. Acute blood loss anemia Multifactorial secondary to fractures, iron deficiency and surgery Status post 3 units PRBC for acute blood loss anemia. no evidence of obvious /ongoing bleed, surgical site with no palpable hematoma. 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 VTE: lovenox Code: Full Dispo: SNF
[2021-11-10] MEDS: ENOXAPARIN 40 MG/0.4 ML SQ SCH (17:15)
--- NOTE | 2021-11-10 17:47 | RAD REPORT ---
EXAM DESCRIPTION: CT - Knee Left W Con - 11/10/2021 2:20 pm CLINICAL HISTORY: left knee pain and swelling COMPARISON: Fluoroscopy >1 Hr dated 11/06/2021 FINDINGS: Moderate knee effusion is present. Synovial thickening consistent with synovitis. No fract ures identified. Tricompartmental degenerative changes are noted. The joint space loss is only mild b ut spurring is prominent. Mild edema Atherosclerosis. IMPRESSION: No left knee fracture identified. Moderate knee effusion may be related to underlying de generative changes.
[2021-11-10] MEDS: MELATONIN 5 MG TABLET PO PRN (20:42)
--- NOTE | 2021-11-11 12:24 | P.PN ---
Subjective Date of Service: 11/11/21 Primary Care Provider: None Chief Complaint: UTI, sepsis, ARF Patient complaining of left knee pain. She has been able to sit at the edge of the bed. Physical Examination - Vital Signs Temperature: 97.8 F Blood Pressure: 133/70 Pulse: 81 Respirations: 18 Pulse Ox (%): 95 Assessment And Plan - Plan Physical exam GEN: Alert, orientedx2, NAD, confused HEENT: Normal conjunctiva, sclera anicteric CV: Regular rate and rhythm, no edema Pulm: Nonlabored respirations on room air. Clear to auscultation bilaterally ABD: Soft, nontender, nondistended MSK: LLE surgical dressing c/d/i. LUE: wrist in short arm splint. 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 History of multiple falls. Urine grew enterococcus and providencia, cefepime changed to levaquin. Continue Levaquin Diet as tolerated echo: normal Villarreal catheter in place. Discontinue villarreal Continue PT. Left knee pain and swelling CT of left knee: No fracture. Has moderate joint effusion. Pain management as needed. Continue PT. Made Dr. Figueroa aware of patient joint effusion to see if tapping the effusion is feasible. Acute blood loss anemia Multifactorial secondary to fractures, iron deficiency and surgery Status post 3 units PRBC for acute blood loss anemia. no evidence of obvious /ongoing bleed, surgical site with no palpable hematoma. Hemoglobin has been stable. 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 VTE: lovenox Code: Full Dispo: [facility]
[2021-11-11] MEDS: Levofloxacin 750mg IV 750 MG/150 ML BAG IV SCH (12:25)
[2021-11-11] MEDS: MEDIHONEY 44 ML TOPICAL TUBE TOP SCH (12:28)
[2021-11-11] MEDS: ENOXAPARIN 40 MG/0.4 ML SQ SCH (17:59)
[2021-11-11] MEDS: MELATONIN 5 MG TABLET PO PRN (21:25)
[2021-11-11] MEDS: ENSURE ENLIVE 237 ML CAN PO SCH (21:26)
[2021-11-12] MEDS: ENSURE ENLIVE 237 ML CAN PO SCH (09:13)
[2021-11-12] MEDS: MEDIHONEY 44 ML TOPICAL TUBE TOP SCH (09:13)
[2021-11-12] MEDS ORDERED: Levofloxacin 750mg IV 750 MG/150 ML BAG IV SCH (10:00)
--- NOTE | 2021-11-12 14:59 | P.PN ---
Subjective Date of Service: 11/12/21 Primary Care Provider: None Chief Complaint: UTI, sepsis, ARF Patient states her left knee pain is better. It appears the left knee is less swelling today Physical Examination - Vital Signs Temperature: 99.1 F Blood Pressure: 143/71 Pulse: 80 Respirations: 18 Pulse Ox (%): 98 Assessment And Plan - Plan Physical exam GEN: Alert, orientedx2, NAD, confused HEENT: Normal conjunctiva, sclera anicteric CV: Regular rate and rhythm, no edema Pulm: Nonlabored respirations on room air. Clear to auscultation bilaterally ABD: Soft, nontender, nondistended MSK: LLE surgical dressing c/d/i. LUE: wrist in short arm splint. 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 History of multiple falls. Urine grew enterococcus and providencia, cefepime changed to levaquin. Continue Levaquin Diet as tolerated echo: normal Villarreal catheter in place. Discontinue villarreal Continue PT. Waiting for SNF placement. Left knee pain and swelling CT of left knee: No fracture. Has moderate joint effusion. Pain management as needed. Continue PT. Dr. Figueroa only medical management. Knee swelling and pain is better today. Acute blood loss anemia Multifactorial secondary to fractures, iron deficiency and surgery Status post 3 units PRBC for acute blood loss anemia. no evidence of obvious /ongoing bleed, surgical site with no palpable hematoma. Hemoglobin has been stable. 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 VTE: lovenox Code: Full Dispo: SNF
--- NOTE | 2021-11-12 17:22 | P.DS ---
Admission Date: 11/04/21 Discharge Date: 11/12/21 Primary Care Provider: None Disposition: TRANSFER TO RESIDENTIAL Discharge Condition: FAIR Reason for Admission: UTI, sepsis, ARF Consultations: Orthopedic surgery-Dr. Figueroa. - Problems (1) Femur fracture, left Current Visit: Yes Status: Acute (2) Altered mental status Current Visit: No Status: Acute (3) UTI (urinary tract infection) Current Visit: No Status: Acute (4) Radial fracture Current Visit: Yes Status: Acute Brief History of Present Illness: 81-year-old female with history of CVA, hypertension, Alzheimer's/dementia possible multiple personalities order/acute affective disorder per her son. Patient apparently was not acting right on the phone. Son checked on her and found her lying on the ground convince her to come to the emergency department for evaluation. Patient was confused on arrival. Patient was evaluated in the emergency department labs were significant for white blood cell count 16.5 hemoglobin 10.3 medical 31.2 creatinine 2.31 GFR 20 BUN 59 glucose 111 lactic acid 2.7 urinalysis 3+ leukoesterase urine microscopic greater than 50 bacteria. Patient with severe sepsis at this time from urinary tract infection. Patient also noted to have left wrist fracture and left femoral intertrochanteric fracture. Left wrist fracture was reduced in the emergency department. CT head C-spine noted an age indeterminate C4 transverse starr medial lateral possible fracture that is new from 2017. Patient without any pain in her neck full range of motion of neck. Orthopedic surgery was contacted and patient admitted for further management. 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 Fall likely due to metabolic encephalopathy from UTI. Family report history of multiple falls. Patient admitted to the medical floor and treated for sepsis with IV antibiotics. Urine grew enterococcus and providencia, initially on cefepime which was later changed to levaquin based on sensitivities result. She completed antibiotic treatment for UTI. Seen by orthopedic surgery, patient underwent ORIF with intramedullary adrianna for the left trochanteric fracture and plate and screw for the left distal radial fracture. Patient monitored in the postop. She clinically improved, tolerated diet. Echo done during the hospital stay was unremarkable, normal EF. Had Ryan catheter in place which was later discontinued. She tolerated PT and she has progressed, now able to stand. SNF rehab recommended. Patient is clinically stable for discharge. Left knee pain and swelling CT of left knee: No fracture. Has moderate joint effusion. Pain management as needed. Continue PT. Dr. Figueroa recommended medical management only. Knee swelling and pain is better today. Acute blood loss anemia Multifactorial secondary to fractures, iron deficiency and surgery Status post 3 units PRBC for acute blood loss anemia. no evidence of obvious /ongoing bleed, surgical site with no palpable hematoma. Hemoglobin has been stable. 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 Vital Signs/Physical Exam: Temp Pulse Resp BP Pulse Ox 98.1 F 88 18 137/67 97 11/12/21 16:00 11/12/21 16:00 11/12/21 16:00 11/12/21 16:00 11/12/21 16:00 General: Alert, In no apparent distress, Oriented x3 HEENT: Mucous membr. moist/pink Neck: JVD not distended Respiratory: Clear to auscultation bilaterally, Normal air movement Cardiovascular: No edema, Regular rate/rhythm, Normal S1 S2 Gastrointestinal: Soft and benign, Non-distended, No tenderness Musculoskeletal: No contractures, Swelling (Mild left knee swelling) Integumentary: No rashes Neurological: Other (No focal motor deficit) Laboratory Data at Discharge: WBC 6.80 K/uL (4.3-10.9) 11/10/21 05:15 Hgb 10.9 g/dL (12.0-15.0) L 11/10/21 05:15 Hct 33.1 % (36.0-45.0) L 11/10/21 05:15 Plt Count 256 K/uL (152-406) 11/10/21 05:15 PT 11.4 SECONDS (9.5-12.5) 11/05/21 10:27 INR 0.99 11/05/21 10:27 Sodium 140 mmol/L (136-145) 11/10/21 05:15 Potassium 3.8 mmol/L (3.5-5.1) 11/10/21 05:15 BUN 21 mg/dL (7-18) H 11/10/21 05:15 Creatinine 0.59 mg/dL (0.55-1.3) 11/10/21 05:15 Glucose 119 mg/dL (74-106) H 11/10/21 05:15 Uric Acid 6.5 mg/dL (2.6-6.0) H 11/05/21 02:05 Magnesium 1.7 D 11/07/21 08:26 Total Bilirubin 0.4 mg/dL (0.2-1.0) 11/06/21 06:10 AST 28 U/L (15-37) 11/06/21 06:10 ALT 22 U/L (12-78) 11/06/21 06:10 Alkaline Phosphatase 61 U/L (45-117) 11/06/21 06:10 Triglycerides 157 mg/dL (<150) H 11/05/21 02:05 Cholesterol 147 mg/dL (<200) 11/05/21 02:05 HDL Cholesterol 43 mg/dL (40-60) 11/05/21 02:05 Cholesterol/HDL Ratio 3.42 11/05/21 02:05 Home Medications: Ensure Enlive 237 ml PO BID can 11/12/21 Hydrocodone 5/APAP 325 [[place] 5/325] 1 tab PO Q6H PRN #15 tab 11/12/21 Medihoney [Medihoney Woundcare Gel*] 1 appl TOP DAILY tube 11/12/21 Rivaroxaban [Xarelto] 10 mg PO DAILY #21 tablet 11/12/21 New Medications: Hydrocodone 5/APAP 325 [[place] 5/325] 1 tab PO Q6H PRN #15 tab PRN Reason: Pain Rivaroxaban [Xarelto] 10 mg PO DAILY #21 tablet Physician Discharge Instructions: Take Xarelto 10 mg daily x 21 days, then baby ASA daily for 3 weeks. Diet: Regular Activity: Weight bearing as tolerated (Posterior hip precaution) Followup: NONE,NONE [Primary Care Provider] - Moreno Figueroa MD [ACTIVE - CAN ADMIT] - (Within 2 weeks. X-ray of left hip and x-ray of left ulnar-radius within 2 weeks prior to office visit.) Time spent managing pt's care (in minutes): 38
[2021-11-12] MEDS: ENOXAPARIN 40 MG/0.4 ML SQ SCH (17:53)
[2021-11-12 22:47] VITALS: BP 158/74; TEMP 97.7
== END 2021-11-12 23:39 | DRG 853 ==
LOC: ER 19:28 → ERHOLD 22:22 → 2ND 11-05 00:31
PROVIDERS: ADMIT Hospitalist; ATTEND Internal Medicine
PROC: 30233N1 Transfusion of Nonautologous Red Blood Cells into Peripheral Vein, Percutaneous Approach (ICD-10-PCS; 2021-11-06)
PROC: 0QS736Z Reposition Left Upper Femur with Intramedullary Internal Fixation Device, Percutaneous Approach (ICD-10-PCS; principal; 2021-11-06 07:30)
PROC: 0PSG04Z Reposition Left Humeral Shaft with Internal Fixation Device, Open Approach (ICD-10-PCS; 2021-11-06 07:30)
DX: A41.81 Sepsis due to Enterococcus (principal); S72.142A Displaced intertrochanteric fracture of left femur, initial encounter for closed fracture; N17.0 Acute kidney failure with tubular necrosis; G93.41 Metabolic encephalopathy; S52.572A Other intraarticular fracture of lower end of left radius, initial encounter for closed fracture; N39.0 Urinary tract infection, site not specified; D62 Acute posthemorrhagic anemia; G30.9 Alzheimer's disease, unspecified; F02.80 Dementia in other diseases classified elsewhere, unspecified severity, without behavioral disturbance, psychotic disturbance, mood disturbance, and anxiety; F25.9 Schizoaffective disorder, unspecified; F44.81 Dissociative identity disorder; E87.6 Hypokalemia; D50.9 Iron deficiency anemia, unspecified; I10 Essential (primary) hypertension; R65.20 Severe sepsis without septic shock; W18.30XA Fall on same level, unspecified, initial encounter; Z86.73 Personal history of transient ischemic attack (TIA), and cerebral infarction without residual deficits; Z60.2 Problems related to living alone; Z79.82 Long term (current) use of aspirin; Z79.01 Long term (current) use of anticoagulants; Z79.899 Other long term (current) drug therapy; Z20.822 Contact with and (suspected) exposure to COVID-19
CPT/HCPCS: 36415; 36430; 51702; 70450; 71045; 71250; 72125; 72141; 72170; 73530; 73701; 74176; 76770; 80048; 80053; 80061; 80076; 81001; 81003; 82550; 82553; 82607; 82728; 82947; 83540; 83605; 83735; 84439; 84443; 84466; 84484; 84550; 85014; 85018; 85025; 85027; 85044; 85610; 86850; 86900; 86901; 87040; 87077; 87086; 87088; 87186; 93005; 93306; 96361; 96365; 97110; 97116; 97161; 97530; 99251; 99285; J0171; J0330; J0690; J0692; J1644; J1650; J1940; J2270; J2704; J2710; J3010; J7030; J7040; J7050; J7120; P9016; U0003